=== PATIENT | female | born 1980 | race Caucasian/White ===

== ENCOUNTER → 2017-01-21 | Outpatient (CLI) | payer BC | END | disposition home or self-care (01) | LOC: LABWHC1 12:52 | PROVIDERS: ATTEND Obstetrics & Gynecology | DX: Z34.80 Encounter for supervision of other normal pregnancy, unspecified trimester (principal); Z3A.00 Weeks of gestation of pregnancy not specified | CPT/HCPCS: 36415; 84702 ==

== ENCOUNTER → 2017-01-23 | Outpatient (CLI) | payer BC | END | disposition home or self-care (01) | LOC: LABWHC1 12:27 | PROVIDERS: ATTEND Obstetrics & Gynecology | DX: Z34.80 Encounter for supervision of other normal pregnancy, unspecified trimester (principal); Z3A.00 Weeks of gestation of pregnancy not specified | CPT/HCPCS: 36415; 84702 ==

== ENCOUNTER → 2017-02-24 | Outpatient (CLI) | payer BC ==
[2017-02-24 11:31] LABS: CH 31.1; CHCM 33.3; HCT 42.1 % (34.0-46.0); HDW 2.43; HGB 13.8 gm/dL (11.4-16.0); MCH 30.8 pg (25.0-35.0); MCHC 32.8 g/dL (31.0-37.0); Mean Platelet Volume 7.5; RBC 4.47 m/uL (3.80-5.40); RDW 13.7 % (11.5-15.5); WBC 8.5 k/uL (3.8-10.6)
[2017-02-24 11:37] LABS: Glucose 85 mg/dL (74-99); Non-African American GFR(MDRD) >60 (>60 ml/min/1.73 sqM)
[2017-02-24 12:07] LABS: Hepatitis B Surface Ag Index 0.05
== END | disposition home or self-care (01) ==
LOC: LABWHC1 11:03
PROVIDERS: ATTEND Obstetrics & Gynecology
DX: Z34.81 Encounter for supervision of other normal pregnancy, first trimester (principal); Z3A.00 Weeks of gestation of pregnancy not specified
CPT/HCPCS: 36415; 82565; 82947; 85027; 86762; 86780; 86850; 86900; 86901; 87340

== ENCOUNTER → 2017-03-27 | Outpatient (CLI) | payer BC ==
--- NOTE | 2017-03-27 16:38 | US ---
EXAMINATION TYPE: US venous doppler duplex LE RT DATE OF EXAM: 03/27/2017 1:47 PM COMPARISON: NONE CLINICAL HISTORY: M79.659 Thigh pain. medial left knee and thigh pain x 6 days; 14 weeks SIDE PERFORMED: TECHNIQUE: The lower extremity deep venous system is examined utilizing real time linear array sonog flo with graded compression, Doppler sonography and color-flow sonography. VESSELS IMAGED: Common Femoral Vein Deep Femoral Vein Greater Saphenous Vein * Femoral Vein Popliteal Vein Small Saphenous Vein * Proximal Calf Veins (* superficial vessels) Right Leg: Negative for DVT Patient is time of this examination. evaluation was not performed at this time. IMPRESSION: 1. Normal right lower extremity deep venous ultrasound.
== END | disposition home or self-care (01) ==
LOC: RADUSWWP 13:07
PROVIDERS: ATTEND Obstetrics & Gynecology
DX: M79.659 Pain in unspecified thigh (principal)

== ENCOUNTER → 2017-05-20 | Outpatient (CLI) | payer BC, OTHER | END | disposition home or self-care (01) | LOC: LABWHC1 11:13 | PROVIDERS: ATTEND Obstetrics & Gynecology | DX: E55.9 Vitamin D deficiency, unspecified (principal) | CPT/HCPCS: 36415; 82306 ==

== ENCOUNTER → 2017-07-04 | Outpatient (CLI) | payer OTHER ==
[2017-07-04 10:44] LABS: CHCM 33.7; HCT 36.6 % (34.0-46.0); HDW 2.77; HGB 12.3 gm/dL (11.4-16.0); MCH 32.2 pg (25.0-35.0); MCHC 33.7 g/dL (31.0-37.0); MCV 95.6 fL (80.0-100.0); Mean Platelet Volume 8.2; RBC 3.83 m/uL (3.80-5.40); WBC 13.3 k/uL (3.8-10.6)
== END | disposition home or self-care (01) ==
LOC: LABWHC1 09:22
PROVIDERS: ATTEND Obstetrics & Gynecology
DX: Z34.82 Encounter for supervision of other normal pregnancy, second trimester (principal)
CPT/HCPCS: 36415; 82950; 85027

== ENCOUNTER 2017-08-24 20:10 | Outpatient (CLI) | payer OTHER ==
[2017-08-24 23:28] VITALS: BP 124/77; PULSE 96; RESP 18; TEMP 98.4
--- NOTE | 2017-08-25 08:17 | P.MSEPDOC ---
Presenting Problems - Arrival Data Date of Arrival on Unit: 08/24/17 Time of Arrival on Unit: 20:10 Mode of Transport: Ambulatory - Complaint OB-Reason for Admission/Chief Complaint: Pain Comment: pain and pressure pelvic area and back. states has cystocele, rectocele , and uterine prolapse needing pessary this preg. pessary removed last week. Medical History - Information : 4 Para: 2 Term: 2 : 0 Abortions: Spontaneous or Elective: 1 Number of Living Children: 2 - Gestational Age Gestational Age by VANGIE (wks/days): 35 Weeks and 1 Days - History Comment: 2 vag deliveies 37 weeks and 39 weeks last only 2 hour labor with 1 push deivery Review of Systems - Review of Systems Constitutional: No problems Breast: No problems ENT: No problems Cardiovascular: No problems Respiratory: No problems Gastrointestinal: No problems Musculoskeletal: No problems Neurological: No problems Skin: No problems Vital Signs - Temperature Temperature: 98.4 F Temperature Source: Oral - Pulse Right Pulse Rate: 96 Pulse Assessment Method: Automatic Cuff - Respirations Respiratory Rate: 18 Oxygen Delivery Method: Room Air - Blood Pressure Right Arm Blood Pressure: 124/77 Blood Pressure Mean: 92 Blood Pressure Source: Automatic Cuff Medical Screen Scoring (Pre) - Cervical Exam Dilation: 0 cm = 0 - Uterine Contractions Frequency: > 5 minutes apart = 1 Duration: N/A Intensity: N/A - Maternal Vital Signs Maternal Temperature: N/A Signs of Preeclampsia: N/A Maternal Respirations: N/A - Maternal Trauma Maternal Trauma: N/A - Assessment Baseline FHR: 150 Heart Rate - NICHD Category: Category I (Normal) = 0 NST: Reactive - Total Score Total Score (Pre): 1 - Level of Risk Level of Risk: Low (0-5) Physician Notification (Pre) - Physician Notified Physician Notified Date: 08/24/17 Physician Notified Time: 21:00 Physician/Practitioner Notifed:: Dr Nicholas New Order Received: Yes - Notification Comment Comment: discharge home if pt comfortable with that or pt may stay another hour for recheck if wishes Disposition - Disposition OB Disposition: Discharge to home Discharge Date: 08/24/17 Discharge Time: 21:30 I agree with the RN Medical Screening Exam: Yes Risk & Benefit of care provided described in d/c instruction: Yes Diagnosis: FALSE LABOR BEFORE 37 COMPLETED WEEKS OF GEST, THIRD TRI
== END 2017-08-24 22:30 | disposition home or self-care (01) ==
LOC: FBPOP 20:10
PROVIDERS: ATTEND Obstetrics & Gynecology
DX: O47.03 False labor before 37 completed weeks of gestation, third trimester (principal); Z3A.35 35 weeks gestation of pregnancy
CPT/HCPCS: 59025; 99213

== ENCOUNTER 2017-09-21 06:00 | Inpatient (IN) | payer OTHER ==
--- NOTE | 2017-09-20 21:20 | P.HPOB ---
History of Present Illness H&P Date: 09/20/17 Chief Complaint: Induction of labor This is a 37-year-old female 4 para 2, with an estimated date of confinement of 09/27/2017, estimated gestational age of 39 and one sevenths weeks, who presents to labor and delivery for induction of labor. She admits to good movement. She has been complaining of irregular contractions and pelvic pressure. labs: GC/chlamydia-negative Syphilis antibody-nonreactive Random glucose-65 Hepatitis B surface antigen-negative Hemoglobin-13.8 Rubella-immune Blood type-O+ Antibody screen-negative Maternity 21--1 hour Glucola-107 Group B streptococcus-negative, history of positive in previous Obstetrical history: . History of 2 vaginal deliveries and 1 miscarriage. Gynecologic history: No history of sexual transmitted diseases. Social history: She is . She works as a assistant analyst. Review of Systems Constitutional: Reports fatigue Eyes: denies blurred vision Ears, nose, mouth and throat: Reports headache, Denies sore throat Cardiovascular: Denies chest pain, Denies shortness of breath Genitourinary: Reports pelvic pain, Reports Musculoskeletal: Reports neck pain Musculoskeletal: bilateral: ankle swelling, hand swelling Neurological: Reports headaches, Reports migraines Psychiatric: Reports depression, Reports difficulty concentrating, Reports mood swings Past Medical History Past Medical History: Asthma, GERD/Reflux, Thyroid Disorder Additional Past Medical History / Comment(s): Degenerative disc disease; migraine headaches; History of eating disorder History of Any Multi-Drug Resistant Organisms: None Reported Past Surgical History: Adenoidectomy, Tonsillectomy Additional Past Surgical History / Comment(s): [id number] Past Anesthesia/Blood Transfusion Reactions: No Reported Reaction Past Psychological History: Depression Additional Psychological History / Comment(s): History of psychosis Smoking Status: Never smoker Past Alcohol Use History: None Reported Past Drug Use History: None Reported - Past Family History Mother Family Medical History: Hypertension Father Family Medical History: CVA/TIA, Myocardial Infarction ([place]) Medications and Allergies Home Medications Medication Instructions Recorded Confirmed Type Pnv,Calcium 72/Iron/Folic Acid 1 tab PO DAILY 08/17/15 09/03/17 History [ Plus Tablet] Folic Acid 0.4 mg PO DAILY 06/11/16 09/03/17 History Acetaminophen Tab [Tylenol Tab] 325 mg PO Q6H 09/29/16 09/03/17 History Biotin 5 mg PO DAILY 09/03/17 09/03/17 History Cholecalciferol (Vitamin D3) 2,000 tab PO DAILY 09/03/17 09/03/17 History [Vitamin D3] Allergies Allergy/AdvReac Type Severity Reaction Status Date / Time banana Allergy Nausea & Verified 09/03/17 20:57 Vomiting & Diarrhea Iodinated Contrast- Oral and Allergy Swelling Verified 09/03/17 20:57 IV Dye milk AdvReac Intermediate abdominal Verified 09/03/17 20:57 cramps Exam Osteopathic Statement: *. No significant issues noted on an osteopathic structural exam other than those noted in the History and Physical/Consult. HEENT: Within normal limits Heart: Regular rate and rhythm Lungs: Clear to auscultation bilaterally Abdomen: Cervix: 1.5 cm/60%/-3 heart tones: 140s by Doppler Extremities: Negative Homans Assessment and Plan (1) 39 weeks gestation of Status: Acute Code(s): Z3A.39 - 39 WEEKS GESTATION OF SNOMED Code( s): 31430772 (2) Group B Streptococcus carrier state affecting Status: Acute Code(s): O99.820 - STREPTOCOCCUS B CARRIER STATE COMPLICATING SNOMED Code(s): 843906444 Plan: Proceed with oxytocin induction of labor. Antibiotic prophylaxis secondary to history of group B streptococcus. Epidural anesthesia if desired. Expectant management.
[2017-09-21] MEDS ORDERED: OXYTOCIN 20 UNITS/1000 ML NS 1,000 ML IV SCH (06:30)
[2017-09-21] MEDS ORDERED: OXYTOCIN 10 UNIT/ML 1 ML VIAL IM PRN (06:30)
[2017-09-21] MEDS ORDERED: CARBOPROST TROMETHAMINE 250 MCG/ML 1 ML AMP IM PRN (06:30)
[2017-09-21] MEDS ORDERED: METHYLERGONOVINE 0.2 MG/ML 1 ML AMP IM PRN (06:30)
[2017-09-21] MEDS ORDERED: LIDOCAINE 1% (PF) 10 MG/ML (30 ML SDV) SQ PRN (06:30)
[2017-09-21] MEDS ORDERED: TERBUTALINE 1 MG/ML VIAL SQ PRN (06:30)
[2017-09-21] MEDS ORDERED: LIDOCAINE 1% 20 ML VIAL (10MG/ML) FOR IV START INTRADERMA PRN (06:30)
[2017-09-21] MEDS ORDERED: AMPICILLIN 2,000 MG in SODIUM CHLORIDE 0.9% 100 ML IVPB STA (06:33)
[2017-09-21 06:37] VITALS: BMI 36.0
[2017-09-21] MEDS: LACTATED RINGERS 1,000 ML IV SCH ×2 (06:48→09:35)
[2017-09-21] MEDS ORDERED: BUPIVACAINE (PF) 0.25% 30 ML VIAL ONE (09:21)
[2017-09-21] MEDS ORDERED: SODIUM CHLORIDE 0.9% 100 ML BAG ONE (09:21)
[2017-09-21] MEDS ORDERED: fentaNYL (PF) 50 MCG/ML 5 ML AMP ONE (09:21)
[2017-09-21 09:27] LABS: Basophils % (A) 0 %; CH 29.8; CHCM 31.9; Eosinophils # (A) 0.2 k/uL (0-0.7); Eosinophils % (A) 2 %; HCT 37.5 % (34.0-46.0); HDW 2.92; HGB 11.8 gm/dL (11.4-16.0); Hypochromasia Slight; Large Platelets Flag Marked; Luc % (Auto) 2; Lymphocytes # (A) 3.2 k/uL (1.0-4.8); Lymphocytes % (A) 31 %; MCH 29.5 pg (25.0-35.0); MCHC 31.4 g/dL (31.0-37.0); MCV 93.8 fL (80.0-100.0); Mean Platelet Volume 11.5; Monocytes # (A) 0.8 k/uL (0-1.0); Monocytes % (A) 8 %; Neutrophils # (A) 5.6 k/uL (1.3-7.7); Neutrophils % (A) 56 %; RDW 13.7 % (11.5-15.5); WBC (Perox) 10.54
[2017-09-21 09:36] LABS: Large Platelets Present; Manual Review Performed
[2017-09-21] MEDS ORDERED: BUPIVACAINE (PF) 0.25% 25 ML, fentaNYL (PF) 200 MCG in SODIUM CHLORIDE 0.9% 71 ML EPIDURAL ONE (09:37)
[2017-09-21] MEDS ORDERED: AMPICILLIN 1,000 MG in SODIUM CHLORIDE 0.9% 50 ML IVPB SCH (11:00)
--- NOTE | 2017-09-21 13:51 | P.PROBDLV ---
Vaginal Delivery Note - . Vaginal Delivery Note: The patient progressed to complete dilation after oxytocin induction of labor and artificial rupture membranes with clear fluid noted. She did receive epidural anesthesia. Once reaching complete dilation, she began pushing. Infant's head came to a crown. Perineum was anesthetized with 1% lidocaine and a midline episiotomy was cut. With one further push, the 's head delivered across the perineum in a right occiput anterior lie. Nose and mouth were bulb suctioned. Nuchal cord times one was noted. With one further push the anterior shoulder delivered and then she was able to push the the remainder of the way out. Nuchal cord times one was reduced around the body with delivery. Nose and mouth were again suctioned once the infant was placed on mother's abdomen. Cord was clamped and cut and was taken to warmer for evaluation. A viable female was noted with scores of 7 at 1 minute and 10 at 5 minutes and infant weight of 8 lbs. 8 oz. Placenta delivered shortly thereafter, intact, with a three-vessel cord. Uterus did contract well after oxytocin was given and uterine massage was carried out. Inspection of the perineum revealed a midline episiotomy with no further extension. This area was anesthetized with 1% lidocaine and then sutured with 3 -0 and 2-0 Vicryl suture in the usual multilayer fashion. Estimated blood loss is approximately 200 mL's. Both mother and are in stable condition.
[2017-09-21] MEDS ORDERED: SIMETHICONE 80 MG CHEWABLE PO PRN (13:53)
[2017-09-21] MEDS ORDERED: LANOLIN CREAM 5 GM TUBE TOPICAL PRN (13:53)
[2017-09-21] MEDS ORDERED: HYDROCORTISONE 2.5% RECTAL CREAM 30 GM TUBE RECTAL PRN (13:53)
[2017-09-21] MEDS ORDERED: diphenhydrAMINE 50 MG CAP PO PRN (13:53)
[2017-09-21] MEDS ORDERED: diphenhydrAMINE 25 MG CAP PO PRN (13:53)
[2017-09-21] MEDS ORDERED: WITCH HAZEL 1 EACH MED..PAD TOPICAL PRN (13:53)
[2017-09-21] MEDS ORDERED: BENZOCAINE/MENTHOL SPRAY 1 GM/SPRAY AEROSOL TOPICAL PRN (13:53)
[2017-09-21] MEDS ORDERED: diphenhydrAMINE 50 MG/ML 1 ML VIAL IVP PRN ×2 (13:53)
[2017-09-21] MEDS ORDERED: ZOLPIDEM 5 MG TAB PO PRN (13:53)
[2017-09-21] MEDS: IBUPROFEN 600 MG TAB PO PRN (15:34)
[2017-09-21] MEDS: SERTRALINE 50 MG TAB PO SCH (16:30)
[2017-09-21] MEDS: ACETAMINOPHEN TAB 325 MG TAB PO PRN (18:41)
[2017-09-21] MEDS ORDERED: FAMOTIDINE 20 MG TAB PO SCH (21:00)
[2017-09-21] MEDS: SENNOSIDES-DOCUSATE SODIUM 1 EACH TAB PO SCH (21:35)
[2017-09-22] MEDS: IBUPROFEN 600 MG TAB PO PRN ×2 (01:03→08:57)
[2017-09-22] MEDS: ACETAMINOPHEN TAB 325 MG TAB PO PRN (02:40)
[2017-09-22 08:06] LABS: Basophils % (A) 0 %; CH 29.9; CHCM 32.6; Eosinophils # (A) 0.1 k/uL (0-0.7); Eosinophils % (A) 1 %; HCT 34.3 % (34.0-46.0); HDW 2.98; HGB 10.9 gm/dL (11.4-16.0); Hypochromasia Slight; Large Platelets Flag Marked; Luc # (Auto) 0.22; Luc % (Auto) 2; Lymphocytes # (A) 2.9 k/uL (1.0-4.8); Lymphocytes % (A) 23 %; MCH 29.2 pg (25.0-35.0); MCHC 31.6 g/dL (31.0-37.0); MCV 92.4 fL (80.0-100.0); Mean Platelet Volume 11.2; Monocytes # (A) 0.8 k/uL (0-1.0); Monocytes % (A) 7 %; Neutrophils # (A) 8.3 k/uL (1.3-7.7); Neutrophils % (A) 67 %; RBC 3.72 m/uL (3.80-5.40); RDW 13.9 % (11.5-15.5); WBC 12.3 k/uL (3.8-10.6); WBC (Perox) 13.04
[2017-09-22 08:10] LABS: Large Platelets Present; Manual Review Performed
--- NOTE | 2017-09-22 08:48 | P.DS ---
Providers Date of admission: 09/21/17 06:21 Expected date of discharge: 09/22/17 Attending physician: Yolanda Gómez Primary care physician: Augustine Yung - Discharge Diagnosis(es) (1) 39 weeks gestation of Current Visit: Yes Status: Acute (2) Group B Streptococcus carrier state affecting Current Visit: Yes Status: Acute Hospital Course: This is a 37-year-old female 4 para 2 at 39 and one sevenths weeks who presented for induction of labor. She underwent oxytocin induction of labor and delivered vaginally a viable female infant on 09/21/2017 with scores of 7 at 1 minute and 10 at 5 minutes and weight of 8 lbs. 8 oz. Her course has been uncomplicated. Lochia is decreasing. She was started on Zoloft 50 mg daily due to her history of psychosis. So far she feels fine as far as her emotions. She is sore but she is alternating between ibuprofen and Tylenol. She is unsure if she wants to go home today or tomorrow but would like a discharge order for today just in case. Vital signs are stable. Abdomen is soft with fundus firm and nontender. Extremities show negative Homans. Impression is status post vaginal delivery day #1. Plan is to discharge home possibly today. Routine instructions are given. She does have a follow-up appointment with Dr. Sidhu already scheduled. She is advised to call the office if she has any further questions or concerns prior to her 6 week visit. Procedures: Oxytocin induction of labor Spontaneous vaginal delivery of a viable female infant on 09/21/2017 Patient Condition at Discharge: Stable Plan - Discharge Summary New Discharge Prescriptions: New Acetaminophen Tab [Tylenol] 650 mg PO Q4HR PRN tab PRN Reason: Mild Pain Or Fever >= 100.5 Ibuprofen [Motrin] 600 mg PO Q6HR PRN #60 tab PRN Reason: Mild Pain Or Fever >= 100.5 Sertraline [Zoloft] 50 mg PO DAILY tab Continue Pnv,Calcium 72/Iron/Folic Acid [ Plus Tablet] 1 tab PO DAILY Folic Acid 0.4 mg PO DAILY Cholecalciferol (Vitamin D3) [Vitamin D3] 2,000 tab PO DAILY Ranitidine HCl [Zantac] 75 mg PO BID No Action Acetaminophen Tab [Tylenol Tab] 325 mg PO Q6H PRN PRN Reason: Heartburn Biotin 5 mg PO DAILY Discharge Medication List Pnv,Calcium 72/Iron/Folic Acid [ Plus Tablet] 1 tab PO DAILY 08/17/15 [ History] Folic Acid 0.4 mg PO DAILY 06/11/16 [History] Acetaminophen Tab [Tylenol Tab] 325 mg PO Q6H PRN 09/29/16 [History] Biotin 5 mg PO DAILY 09/03/17 [History] Cholecalciferol (Vitamin D3) [Vitamin D3] 2,000 tab PO DAILY 09/03/17 [History] Ranitidine HCl [Zantac] 75 mg PO BID 09/21/17 [History] Acetaminophen Tab [Tylenol] 650 mg PO Q4HR PRN tab 09/22/17 [Rx] Ibuprofen [Motrin] 600 mg PO Q6HR PRN #60 tab 09/22/17 [Rx] Sertraline [Zoloft] 50 mg PO DAILY tab 09/22/17 [Rx] Follow up Appointment(s)/Referral(s): Yolanda Gómez DO [Doctor of Osteopathic Medicine] - 6 Weeks Activity/Diet/Wound Care/Special Instructions: Instructions 1. Do not begin any exercise program for 3 weeks. 2. Do not resume sexual relations for 3 weeks or longer if uncomfortable. 3. You may take tub baths or showers at any time. 4. You may use tampons if desired after 3 weeks. 5. Keep the area of episiotomy (stitches) clean and dry. 6. If you are not nursing, wear a good fitting, supportive bra during the day and limit fluid intake for at least 1 week to prevent breast engorgement. 7. Call the office, [phone], within the next week to make appointment for your 6 week checkup if it has not already been made. 8. Report any of the following occurrences to the doctor promptly: a. Heavy, excessive bleeding b. Chills, fever c. Burning or frequency of urination d. Pain or redness and breasts if nursing e. Increasing pain or swelling in episiotomy (stitches). In addition to the above instructions, the following additional should be followed: 1. No heavy lifting or straining (exercising) until after 6 week checkup. 2. Keep abdominal incision clean and dry: You may wear a dressing if more comfortable. 3. Make office appointment for 10 days after going home or as instructed by her doctor. Discharge Disposition: HOME SELF-CARE
[2017-09-22] MEDS: SENNOSIDES-DOCUSATE SODIUM 1 EACH TAB PO SCH (08:57)
[2017-09-22 09:28] VITALS: BP 104/63; PULSE 77; RESP 18; TEMP 98.8
[2017-09-22] MEDS: SERTRALINE 50 MG TAB PO SCH (10:38)
== END 2017-09-22 14:46 | disposition home or self-care (01) | DRG 775 ==
LOC: 4FBP 06:21
PROVIDERS: ADMIT Obstetrics & Gynecology; ATTEND Obstetrics & Gynecology
PROC: 10E0XZZ Delivery of Products of Conception, External Approach (ICD-10-PCS; principal; 2017-09-21)
PROC: 0W8NXZZ Division of Female Perineum, External Approach (ICD-10-PCS; 2017-09-21)
PROC: 3E033VJ Introduction of Other Hormone into Peripheral Vein, Percutaneous Approach (ICD-10-PCS; 2017-09-21)
PROC: 10907ZC Drainage of Amniotic Fluid, Therapeutic from Products of Conception, Via Natural or Artificial Opening (ICD-10-PCS; 2017-09-21)
DX: O69.81X0 Labor and delivery complicated by cord around neck, without compression, not applicable or unspecified (principal); O99.354 Diseases of the nervous system complicating childbirth; Z37.0 Single live birth; O99.344 Other mental disorders complicating childbirth; O99.89 Other specified diseases and conditions complicating pregnancy, childbirth and the puerperium; F32.9 Major depressive disorder, single episode, unspecified; O99.52 Diseases of the respiratory system complicating childbirth; J45.909 Unspecified asthma, uncomplicated; O99.62 Diseases of the digestive system complicating childbirth; K21.9 Gastro-esophageal reflux disease without esophagitis; O99.824 Streptococcus B carrier state complicating childbirth; O99.284 Endocrine, nutritional and metabolic diseases complicating childbirth; E07.9 Disorder of thyroid, unspecified; G43.909 Migraine, unspecified, not intractable, without status migrainosus; Z3A.39 39 weeks gestation of pregnancy; Z86.59 Personal history of other mental and behavioral disorders; Z82.49 Family history of ischemic heart disease and other diseases of the circulatory system; Z91.041 Radiographic dye allergy status; Z91.011 Allergy to milk products; Z91.018 Allergy to other foods
CPT/HCPCS: 85025; 88307

== ENCOUNTER 2017-10-06 20:12 | Emergency (ER) | payer OTHER ==
[2017-10-06] MEDS ORDERED: SODIUM CHLORIDE 0.9% 1,000 ML IV STA (20:51)
--- NOTE | 2017-10-06 21:03 | ED ---
General Adult HPI - General Chief complaint: Vaginal Bleeding Stated complaint: Female Time Seen by Provider: 10/06/17 20:35 Source: patient, RN notes reviewed Mode of arrival: ambulatory Limitations: no limitations - History of Present Illness Initial comments: 37 yo female presents to the ER with cc of vaginal bleeding following a vaginally delivery 2 weeks ago. Patient is a . Patient states she does suffer from rectal and uterine prolapse. Patient states that she has had no discomfort. Patient states that her bleeding stopped on Thursday or last week but then she started to have a big gush of bright red blood today she states whenever she goes to the bathroom she notices this big gush of blood. She states a little bit of right-sided pain but nothing severe. She states there is no complications with the vaginally delivery. Patient OBGYN is Dr. Gómez. She was concerned due to the bleeding so she thought that she should be seen. Patient denies any lightheadedness or dizziness with this. SHe denies any changes in bowel or bladder habits. Patient denies any recent fever, chills, shortness of breath, chest pain, back pain, abdominal pain, nausea vomiting, numbness or tingling, dysuria or hematuria, constipation or diarrhea, headaches or visual changes, or any other current symptoms. - Related Data Home Medications Medication Instructions Recorded Confirmed Pnv,Calcium 72/Iron/Folic Acid 1 tab PO DAILY 08/17/15 10/06/17 [ Plus Tablet] Folic Acid 0.4 mg PO DAILY 06/11/16 10/06/17 Biotin 5 mg PO DAILY 09/03/17 10/06/17 Cholecalciferol (Vitamin D3) 2,000 tab PO DAILY 09/03/17 10/06/17 [Vitamin D3] Acetaminophen [Tylenol] 650 mg PO Q6HR PRN 10/06/17 10/06/17 Ranitidine HCl [Zantac] 75 mg PO DAILY PRN 10/06/17 10/06/17 Previous Rx's Medication Instructions Recorded Sertraline [Zoloft] 50 mg PO DAILY tab 09/22/17 Allergies Allergy/AdvReac Type Severity Reaction Status Date / Time banana Allergy Nausea & Verified 10/06/17 20:33 Vomiting & Diarrhea Iodinated Contrast- Oral and Allergy Swelling Verified 10/06/17 20:33 IV Dye milk AdvReac Mild Abdominal Verified 10/06/17 20:33 Pain Review of Systems ROS Statement: Those systems with pertinent positive or pertinent negative responses have been documented in the HPI. ROS Other: All systems not noted in ROS Statement are negative. Past Medical History Past Medical History: Asthma, GERD/Reflux, Thyroid Disorder Additional Past Medical History / Comment(s): Degenerative disc disease; migraine headaches; History of eating disorder. cystocele, rectocele, uterine prolapse History of Any Multi-Drug Resistant Organisms: None Reported Past Surgical History: Adenoidectomy, Tonsillectomy Additional Past Surgical History / Comment(s): [id number] Past Anesthesia/Blood Transfusion Reactions: No Reported Reaction Past Psychological History: Anxiety, Depression Smoking Status: Never smoker Past Alcohol Use History: None Reported Past Drug Use History: None Reported - Past Family History Mother Family Medical History: Hypertension Father Family Medical History: CVA/TIA, Myocardial Infarction ([place]) General Exam Limitations: no limitations General appearance: alert, in no apparent distress ENT exam: Present: normal exam, mucous membranes moist Neck exam: Present: normal inspection. Absent: tenderness, meningismus, lymphadenopathy Respiratory exam: Present: normal lung sounds bilaterally. Absent: respiratory distress, wheezes, rales, rhonchi, stridor Cardiovascular Exam: Present: regular rate, normal rhythm, normal heart sounds. Absent: systolic murmur, diastolic murmur, rubs, gallop, clicks GI/Abdominal exam: Present: soft, normal bowel sounds. Absent: distended, tenderness, guarding, rebound, rigid Neurological exam: Present: alert, oriented X3 Psychiatric exam: Present: normal affect, normal mood Skin exam: Present: warm, dry, intact, normal color. Absent: rash Course Vital Signs 10/06/17 20:21 Temperature 98.8 F Pulse Rate 93 Respiratory 18 Rate Blood Pressure 121/66 O2 Sat by Pulse 98 Oximetry Medical Decision Making - Medical Decision Making 37 yo female presents for vaginal bleeding following delivery 2 weeks ago. At this time patient's hCG level is normal. Patient's ultrasound is not showing retained products of conception. At this time the patient is informed that she is to follow-up with [facility]. We discussed return parameters and questions. Patient stated that she understood and she is here this plan. All questions have been answered. She'll be discharged. - Lab Data Result diagrams: 10/06/17 21:00 10/06/17 21:00 Lab Results 10/06/17 10/06/17 10/06/17 Range/Units 21:00 21:00 21:00 WBC 6.7 (3.8-10.6) k/uL RBC 4.67 (3.80-5.40) m/uL Hgb 13.5 (11.4-16.0) gm/dL Hct 42.1 (34.0-46.0) % MCV 90.1 (80.0-100.0) fL MCH 28.8 (25.0-35.0) pg MCHC 32.0 (31.0-37.0) g/dL RDW 13.8 (11.5-15.5) % Plt Count 374 D (150-450) k/uL Neutrophils % 44 % Lymphocytes % 42 % Monocytes % 8 % Eosinophils % 3 % Basophils % 1 % Neutrophils # 2.9 (1.3-7.7) k/uL Lymphocytes # 2.8 (1.0-4.8) k/uL Monocytes # 0.5 (0-1.0) k/uL Eosinophils # 0.2 (0-0.7) k/uL Basophils # 0.0 (0-0.2) k/uL Sodium 139 (137-145) mmol/L Potassium 4.2 (3.5-5.1) mmol/L Chloride 105 (98-107) mmol/L Carbon Dioxide 27 (22-30) mmol/L Anion Gap 7 mmol/L BUN 9 (7-17) mg/dL Creatinine 0.84 (0.52-1.04) mg/dL Est GFR (MDRD) Af Amer >60 (>60 ml/min/1.73 sqM) Est GFR (MDRD) Non-Af >60 (>60 ml/min/1.73 sqM) Glucose 86 (74-99) mg/dL Calcium 9.4 (8.4-10.2) mg/dL Total Bilirubin 0.2 (0.2-1.3) mg/dL AST 30 (14-36) U/L ALT 47 (9-52) U/L Alkaline Phosphatase 92 (38-126) U/L Total Protein 6.6 (6.3-8.2) g/dL Albumin 3.9 (3.5-5.0) g/dL HCG, Quant 2.4 mIU/mL Urine Color Urine Appearance (Clear) Urine pH (5.0-8.0) Ur Specific Rowe (1.001-1.035) Urine Protein (Negative) Urine Glucose (UA) (Negative) Urine Ketones (Negative) Urine Blood (Negative) Urine Nitrite (Negative) Urine Bilirubin (Negative) Urine Urobilinogen (<2.0) mg/dL Ur Leukocyte Esterase (Negative) Urine RBC (0-5) /hpf Urine WBC (0-5) /hpf Ur Squamous Epith Cells (0-4) /hpf Urine Mucus (None) /hpf Blood Type O Positive Blood Type Recheck No Antibody Screen NEGATIVE Spec Expiration Date 10/09/2017 - 229910/06/17 Range/Units 21:30 WBC (3.8-10.6) k/uL RBC (3.80-5.40) m/uL Hgb (11.4-16.0) gm/dL Hct (34.0-46.0) % MCV (80.0-100.0) fL MCH (25.0-35.0) pg MCHC (31.0-37.0) g/dL RDW (11.5-15.5) % Plt Count (150-450) k/uL Neutrophils % % Lymphocytes % % Monocytes % % Eosinophils % % Basophils % % Neutrophils # (1.3-7.7) k/uL Lymphocytes # (1.0-4.8) k/uL Monocytes # (0-1.0) k/uL Eosinophils # (0-0.7) k/uL Basophils # (0-0.2) k/uL Sodium (137-145) mmol/L Potassium (3.5-5.1) mmol/L Chloride (98-107) mmol/L Carbon Dioxide (22-30) mmol/L Anion Gap mmol/L BUN (7-17) mg/dL Creatinine (0.52-1.04) mg/dL Est GFR (MDRD) Af Amer (>60 ml/min/1.73 sqM) Est GFR (MDRD) Non-Af (>60 ml/min/1.73 sqM) Glucose (74-99) mg/dL Calcium (8.4-10.2) mg/dL Total Bilirubin (0.2-1.3) mg/dL AST (14-36) U/L ALT (9-52) U/L Alkaline Phosphatase (38-126) U/L Total Protein (6.3-8.2) g/dL Albumin (3.5-5.0) g/dL HCG, Quant mIU/mL Urine Color Yellow Urine Appearance Clear (Clear) Urine pH 5.5 (5.0-8.0) Ur Specific Rowe 1.018 (1.001-1.035) Urine Protein Negative (Negative) Urine Glucose (UA) Negative (Negative) Urine Ketones Negative (Negative) Urine Blood Trace H (Negative) Urine Nitrite Negative (Negative) Urine Bilirubin Negative (Negative) Urine Urobilinogen <2.0 (<2.0) mg/dL Ur Leukocyte Esterase Small H (Negative) Urine RBC 1 (0-5) /hpf Urine WBC 7 H (0-5) /hpf Ur Squamous Epith Cells 1 (0-4) /hpf Urine Mucus Occasional H (None) /hpf Blood Type Blood Type Recheck Antibody Screen Spec Expiration Date - Radiology Data Radiology results: report reviewed, image reviewed Disposition Clinical Impression: bleeding Disposition: HOME SELF-CARE Condition: Stable Instructions: Bleeding (ED) Additional Instructions: Please use medication as discussed. Please follow up with family doctor if symptoms have not improved over the next two days. Please return to the emergency room if your symptoms increase or worsen or for any other concerns. Referrals: Augustine Yung MD [Primary Care Provider] - 1-2 days Time of Disposition: 22:25
[2017-10-06 21:16] LABS: Basophils % (A) 1 %; CH 29.4; CHCM 32.9; Eosinophils # (A) 0.2 k/uL (0-0.7); Eosinophils % (A) 3 %; HCT 42.1 % (34.0-46.0); HDW 2.73; HGB 13.5 gm/dL (11.4-16.0); Luc # (Auto) 0.23; Luc % (Auto) 4; Lymphocytes # (A) 2.8 k/uL (1.0-4.8); Lymphocytes % (A) 42 %; MCH 28.8 pg (25.0-35.0); MCV 90.1 fL (80.0-100.0); Mean Platelet Volume 7.1; Monocytes # (A) 0.5 k/uL (0-1.0); Monocytes % (A) 8 %; Neutrophils # (A) 2.9 k/uL (1.3-7.7); Neutrophils % (A) 44 %; RBC 4.67 m/uL (3.80-5.40); RDW 13.8 % (11.5-15.5); WBC 6.7 k/uL (3.8-10.6)
[2017-10-06 21:21] LABS: ALT 47 U/L (9-52); AST 30 U/L (14-36); Alkaline Phosphatase 92 U/L (38-126); Anion Gap 7 mmol/L; Blood Urea Nitrogen 9 mg/dL (7-17); Calcium 9.4 mg/dL (8.4-10.2); Carbon Dioxide 27 mmol/L (22-30); Chloride 105 mmol/L (98-107); Glucose 86 mg/dL (74-99); Non-African American GFR(MDRD) >60 (>60 ml/min/1.73 sqM); Potassium 4.2 mmol/L (3.5-5.1); Sodium 139 mmol/L (137-145); Total Bilirubin 0.2 mg/dL (0.2-1.3); Total Protein 6.6 g/dL (6.3-8.2)
[2017-10-06 21:50] LABS: Appearance,Urine Clear (Clear); Bilirubin,Urine Negative (Negative); Glucose,Urine (UA) Negative (Negative); Ketones,Urine Negative (Negative); Leukocyte Esterase,Urine Small (Negative); Mucus,Urine Occasional /hpf; Nitrite,Urine Negative (Negative); PH, Urine 5.5 (5.0-8.0); Particle Count 2640; Protein,Urine Negative (Negative); RBC,Urine 1 /hpf (0-5); Specific Gravity,Urine 1.018 (1.001-1.035); Squamous Epithelial Cell,Urine 1 /hpf (0-4); UA Billing (MACRO vs. MICRO) MICRO; Urobilinogen,Urine <2.0 mg/dL (<2.0); WBC,Urine 7 /hpf (0-5)
--- NOTE | 2017-10-06 22:19 | US ---
EXAMINATION TYPE: US transvaginal DATE OF EXAM: 10/06/2017 COMPARISON: NONE CLINICAL HISTORY: Pain. patient 2 weeks post bleeding patient has prolapsed uterus, bladder an d anus TECHNIQUE: Transvaginal (TV) EXAM MEASUREMENTS: Uterus: 8.4 x 5.5 x 8.5 cm Endometrial Stripe: 0.5 cm Right Ovary: 3.9 x 1.6 x 1.1 cm Patient only able to tolerate small amount of pressure for exam due to 2 weeks still pain ful in vaginal area 1. Uterus: retroverted heterogenous 2. Endometrium: ill defined boarders anechoic with internal echoes seen 3. Right Ovary: wnl Spectral, color and waveform doppler imaging shows good arterial and venous flow within the right o vary; there is no evidence for ovarian torsion. 5. Bilateral Adnexa: wnl 6. Posterior cul-de-sac: wnl Uterus heterogenous in appearance endometrium not well defined area measured had fluid with internal echoes seen within IMPRESSION: Uterus is large consistent with recent . There is a tiny amount of endometrial f luid. No evidence of any endometrial thickening. Fluid measures 4 mm. No adnexal mass. Left ovary is not seen.
[2017-10-06 22:38] VITALS: BP 115/74; PULSE 72; RESP 16; TEMP 97.9
== END 2017-10-06 22:42 | disposition home or self-care (01) ==
LOC: EC 20:12
DX: O72.2 Delayed and secondary postpartum hemorrhage (principal); Z79.899 Other long term (current) drug therapy; Z91.011 Allergy to milk products; Z91.018 Allergy to other foods; Z91.041 Radiographic dye allergy status
CPT/HCPCS: 36415; 76830; 80053; 81001; 84702; 85025; 86850; 86900; 86901; 87086; 93976; 96360; 99284

== ENCOUNTER → 2017-12-02 | Outpatient (CLI) | payer OTHER ==
--- NOTE | 2017-12-02 10:14 | MR ---
MRI bilateral hips without contrast HISTORY: Pain, M 25.551, M25.552 Multiplanar multisequence imaging of the hips. There are no plain films supplied for correlation. The hips show a normal appearance. Bone marrow signal is maintained within the hips. There is no evid ent labral tear within the confines of a noncontrast exam. Articular cartilage signal is maintained, joint spaces are normal. No evident trochanteric bursitis. There is abnormal signal involving the sacroiliac joints bilaterally, subchondral reactive marrow frantz ma is present with some associated sclerosis suspected. There is no evident ankylosis or erosion. Uterus and adnexa are unremarkable. No significant free fluid present. Urinary bladder shows normal s ignal. Some mild arthropathy change present at the pubic symphysis. No adenopathy. IMPRESSION: Correlate for sacroiliitis bilaterally
== END | disposition home or self-care (01) ==
LOC: RADMRIMAIN 08:46
PROVIDERS: ATTEND Orthopaedic Surgery
DX: M25.551 Pain in right hip (principal); M25.552 Pain in left hip

== ENCOUNTER → 2017-12-21 | Day surgery (SDC) | payer OTHER ==
[2017-12-14 16:07] VITALS: BMI 31.3
[~2017-12-21] MED LIST: BUPIVACAINE (PF) 0.5% 30 ML VIAL SQ ONE; DEXAMETHASONE SOD PHOSPHATE 10 MG/ML 1 ML VIAL IV ONE; LACTATED RINGERS 1,000 ML IV SCH; LIDOCAINE 1% 20 ML VIAL (10MG/ML) FOR IV START INTRADERMA PRN; MIDAZOLAM 2 MG/2 ML VIAL ONE; PROPOFOL 10 MG/ML 20 ML VIAL IV ONE; Pre Op ABX Message 1 EACH MISC MISCELLANE ONE; fentaNYL (PF) 50 MCG/ML 2 ML AMP ONE
[2017-12-21 12:56] VITALS: RESP 16; TEMP 97.8
[2017-12-21 14:12] VITALS: BP 110/71; PULSE 65
--- NOTE | 2017-12-21 17:39 | OP ---
OPERATIVE REPORT PREOPERATIVE DIAGNOSES: Right carpal tunnel and flexor tendon sheath ganglion cyst, right middle finger. POSTOPERATIVE DIAGNOSES: Right carpal tunnel and flexor tendon sheath ganglion cyst, right middle finger. PROCEDURE: 1. Right carpal tunnel release 2. Excision of flexor tendon sheath ganglion cyst, right middle finger. DESCRIPTION OF PROCEDURE: The patient was taken to the Operative Suite where a sedation was administered by the Department of Anesthesia. I then performed a local injection along the line of the incision with a combination of Marcaine and Xylocaine both without epinephrine. The hand was then prepped and draped in the usual manner. The arm was elevated, exsanguinated and the cuff was inflated to 250 mm of mercury. A longitudinal incision was made along the ring finger ray distal to the wrist crease. Dissection was taken through the skin and subcutaneous tissue, initially sharp through the skin and then blunt through the subcutaneous tissue to ensure protection of any potential terminal transverse branches of the palmar cutaneous nerve. The palmar fascia was then incised under direct vision longitudinally exposing the transverse carpal ligament. The transverse carpal ligament also was incised under direct vision. The dissection was then continued proximally beneath the skin under direct vision to release the distal forearm fascia. The median nerve was then reflected free of tenosynovium to ensure no adhesions. The tourniquet was then released. The wound was then irrigated and the skin was closed with a running 5-0 nylon suture. A soft bulky dressing was applied including a volar plaster splint holding the wrist in a neutral slightly extended position. The patient was then taken to the Recovery Room in satisfactory condition. The patient was taken to the Operative Suite were a digital block anesthetic was performed. The hand was prepped and draped in the usual manner. The finger was exsanguinated and Nael drain was used a tourniquet in the proximal aspect of the finger. A T-shaped incision was made over the DIP joint centered over the ganglion cyst. Skin flaps were gently dissected and care was taken to avoid harm and injury to the extensor tendon. A longitudinal arthrotomy was made along the DIP joint on the side of the ganglion cyst. The cyst was excised along with osteophytic spurs. The wound was irrigated and the skin was closed with 5-0 nylon suture. A soft, bulky dressing was applied, and the patient was taken to the Recovery Room in satisfactory condition. MMODL / IJN: [id number] / KARLIE
== END ==
LOC: OR 12:25
PROVIDERS: ATTEND Orthopaedic Surgery Hand Surgery
DX: G56.01 Carpal tunnel syndrome, right upper limb (principal); M67.441 Ganglion, right hand; M25.741 Osteophyte, right hand; F32.9 Major depressive disorder, single episode, unspecified; J45.909 Unspecified asthma, uncomplicated; Z79.3 Long term (current) use of hormonal contraceptives; Z79.899 Other long term (current) drug therapy; Z91.041 Radiographic dye allergy status
CPT/HCPCS: 81025; 64721; 26160; J2250; J1100; J3010; J2704; 88304

== ENCOUNTER → 2018-02-09 | Outpatient (CLI) | payer OTHER ==
--- NOTE | 2018-02-09 08:59 | MR ---
EXAMINATION TYPE: MR lumbar spine wo con DATE OF EXAM: 02/09/2018 COMPARISON: NONE HISTORY: Low back pain TECHNIQUE: T1 and T2 axial and sagittal images of the lumbar spine are submitted. FINDINGS: There is no abnormal signal seen within the visualized spinal cord or paraspinal soft tissu es. At L1-2 there is no disc herniation or canal stenosis. No foraminal encroachment. At L2-3 there is no disc herniation or canal stenosis. No foraminal encroachment. At L3-4 there is mild disc desiccation. Mild left lateral disc bulging but no foraminal encroachment or canal stenosis. At L4-5 there is hypertrophic change of the facets. No disc herniation or canal stenosis. No foramina l encroachment. At L5-S1 there is degenerative disc disease with a focal central disc bulge or small protrusion. No c anal stenosis or foraminal encroachment. IMPRESSION: 1. There is a focal small central disc bulge or small protrusion L5-S1 but no canal stenosis or mansi inal encroachment. 2. Left lateral disc bulging L3-L4 but no evidence of foraminal encroachment.
== END | disposition home or self-care (01) ==
LOC: RADMRIMAIN 08:16
PROVIDERS: ATTEND Physical Medicine & Rehabilitation
DX: S33.39 Dislocation of other parts of lumbar spine and pelvis (principal)
CPT/HCPCS: 72148

== ENCOUNTER → 2018-05-17 | Outpatient (CLI) | payer OTHER ==
[2018-05-17 17:23] LABS: Basophils % (A) 0 %; Eosinophils # (A) 0.1 k/uL (0-0.7); Eosinophils % (A) 1 %; HCT 40.5 % (34.0-46.0); HGB 13.7 gm/dL (11.4-16.0); Lymphocytes # (A) 2.7 k/uL (1.0-4.8); Lymphocytes % (A) 28 %; MCH 30.1 pg (25.0-35.0); MCHC 33.9 g/dL (31.0-37.0); Mean Platelet Volume 7.1; Monocytes # (A) 0.4 k/uL (0-1.0); Monocytes % (A) 5 %; Neutrophils # (A) 6.5 k/uL (1.3-7.7); Neutrophils % (A) 66 %; Platelet Count 309 k/uL (150-450); RBC 4.55 m/uL (3.80-5.40); RDW 13.6 % (11.5-15.5); WBC 9.9 k/uL (3.8-10.6)
[2018-05-17 17:32] LABS: Anion Gap 11 mmol/L; Blood Urea Nitrogen 6 mg/dL (7-17); Calcium 9.6 mg/dL (8.4-10.2); Carbon Dioxide 21 mmol/L (22-30); Chloride 109 mmol/L (98-107); Glucose 97 mg/dL (74-99); Potassium 4.2 mmol/L (3.5-5.1); Sodium 141 mmol/L (137-145)
== END | disposition home or self-care (01) ==
LOC: LABPAT 16:00
PROVIDERS: ATTEND Obstetrics & Gynecology
DX: Z01.812 Encounter for preprocedural laboratory examination (principal)
CPT/HCPCS: 36415; 80048; 85025; 86850; 86900; 86901

== ENCOUNTER 2018-05-24 05:56 | Inpatient (IN) | payer OTHER ==
[2018-05-17 18:34] VITALS: BMI 29.7
--- NOTE | 2018-05-17 20:57 | P.GSHP ---
History of Present Illness H&P Date: 05/17/18 Chief Complaint: Stress urinary incontinence The patient is a 38-year-old female with a history of intermittent urine leakage which has been much worse since she was in/2017. She has urine leakage which is associated with a sense of urgency and also urine leakage associated with coughing and straining, but only when she is standing. She has no fecal incontinence. The leakage has progressed to the point where she was wearing 2-4 pads daily. She usually voids every 2-3 hours during the day but has no nocturia. The patient has a cystocele and small rectocele and Dr. Gómez plans vaginal hysterectomy with repair of her pelvic organ prolapse. She has tried Kegel exercises with no improvement. I have discussed nonoperative versus operative treatment of her stress incontinence and the patient wishes to proceed with a synthetic trans-obturator mid urethral sling. - Constitutional Constitutional: Reports weight gain - EENT Ears, nose, mouth and throat: Reports headache - Cardiovascular Cardiovascular: Denies chest pain, Denies palpitations, Denies shortness of breath - Respiratory Respiratory: Denies cough, Denies wheezing - Gastrointestinal Gastrointestinal: Denies abdominal pain, Denies constipation - Genitourinary (Female) Genitourinary: Reports as per HPI - Musculoskeletal Musculoskeletal: Reports shooting arm pain, Reports shooting leg pain - Psychiatric Psychiatric: Reports depression Past Medical History Past Medical History: Asthma, GERD/Reflux, Musculoskeletal Disorder, Syncope Additional Past Medical History / Comment(s): DDD, OCC NT ASHANTI LEGS/ARMS. Migraine headaches. History of eating disorder. Cystocele, Rectocele, Uterine prolapse. GERD resolved at this time. Exercise induced asthma. Current separation of pelvis, OCC difficulty getting to standing position from sitting/ lying. History of Any Multi-Drug Resistant Organisms: None Reported Past Surgical History: Adenoidectomy, Tonsillectomy Additional Past Surgical History / Comment(s): Laparoscopy, EP Study, Endoscopy , D&C. 12/2017 RT [facility], GANGLION CYST EXC. Past Anesthesia/Blood Transfusion Reactions: Previous Problems w/ Anesthesia Additional Past Anesthesia/Blood Transfusion Reaction / Comment(s): Woke up during endoscopy. Smoking Status: Never smoker - Past Family History Mother Family Medical History: Hypertension Father Family Medical History: CVA/TIA, Myocardial Infarction ([place]) Medications and Allergies Home Medications Medication Instructions Recorded Confirmed Type Folic Acid 0.4 mg PO DAILY 06/11/16 05/17/18 History Biotin 5 mg PO BID 09/03/17 05/17/18 History Cholecalciferol (Vitamin D3) 3,000 tab PO DAILY 09/03/17 05/17/18 History [Vitamin D3] Acetaminophen [Tylenol] 650 mg PO Q6HR PRN 10/06/17 05/17/18 History Sertraline [Zoloft] 100 mg PO BID 12/14/17 05/17/18 History Albuterol Inhaler [Ventolin Hfa 1 - 2 puff INHALATION RT-Q6H PRN 05/17/18 History Inhaler] Blisovi Fe 1.5/30 (Bcp) 1 tab PO HS 05/17/18 History Omeprazole [PriLOSEC] 20 mg PO HS 05/17/18 05/17/18 History Pregabalin [Lyrica] 75 mg PO BID 05/17/18 05/17/18 History Topiramate [Topamax] 100 mg PO BID 05/17/18 05/17/18 History busPIRone HCL 5 mg PO BID 05/17/18 05/17/18 History Allergies Allergy/AdvReac Type Severity Reaction Status Date / Time banana Allergy Nausea & Verified 05/17/18 18:01 Vomiting & Diarrhea Iodinated Contrast- Oral and Allergy Swelling Verified 05/17/18 18:01 IV Dye milk AdvReac Mild Abdominal Verified 05/17/18 18:01 Pain Surgical - Exam - General well developed, well nourished, obese - ENT no hearing loss - Neck no masses, no lymphadectomy - Respiratory normal respiratory effort, clear to auscultation - Cardiovascular Rhythm: regular Abnormal Heart Sounds: no systolic murmur, no diastolic murmur - Abdomen Abdomen: soft, non tender, no organomegaly Hernia: none - Genitourinary normal external genitalia, other (The bladder neck is hypermobile. Minimal stress incontinence in the supine position with coughing. Gr 2 cystocele) Assessment and Plan (1) Mixed stress and urge urinary incontinence Narrative/Plan: The patient has components of both stress and urge incontinence. Her urge incontinence appears to be the most bothersome however a portion of this could be related to an open bladder neck related to her stress incontinence. I discussed further nonoperative treatment including Kegel exercises and anti- cholinergics versus operative treatment via a synthetic mid urethral sling. Because the patient will be undergoing vaginal hysterectomy and anterior repair patient she would like to proceed with surgical treatment of the stress incontinence. She is aware that her urge incontinence may persist. She is also aware of the operative risks which include anesthesia, bleeding, infection or erosion of the mesh which may require mesh removal, perineal or leg pain, and persistent or recurrent incontinence. Status: Acute Code(s): N39.46 - MIXED INCONTINENCE SNOMED Code(s): 640684493
--- NOTE | 2018-05-23 17:18 | P.HPOB ---
History of Present Illness H&P Date: 05/23/18 Chief Complaint: Uterine prolapse with cystocele and rectocele, urinary incontinence This is a 38-year-old female 4 para 3 who presents for total vaginal hysterectomy with anterior and posterior vaginal colporrhaphy along with trans- obturator sling to be performed by Dr. Eaton. She started having symptomatic pelvic organ prolapse during her last and it has continued since . In addition she continues to have urinary stress incontinence. She has consented to the above noted procedure. Obstetrical history: . History of 3 vaginal deliveries and 1 miscarriage. Gynecologic history: No history of sexual transmitted diseases. Social history: She is . Review of Systems Constitutional: Denies chills, Denies fever Eyes: denies blurred vision, denies pain Ears, nose, mouth and throat: Reports headache, Denies sore throat Cardiovascular: Denies chest pain, Denies shortness of breath Respiratory: Denies cough Gastrointestinal: Denies abdominal pain, Denies diarrhea, Denies nausea, Denies vomiting Genitourinary: Reports dyspareunia, Reports pelvic pain, Reports prolapse symptoms, Reports stress incontinence Musculoskeletal: Reports low back pain, Reports myalgias Neurological: Reports migraines Psychiatric: Reports anxiety, Reports depression Past Medical History Past Medical History: Asthma, GERD/Reflux, Musculoskeletal Disorder, Syncope Additional Past Medical History / Comment(s): DDD, OCC NT ASHANTI LEGS/ARMS. Migraine headaches. History of eating disorder. Cystocele, Rectocele, Uterine prolapse. GERD resolved at this time. Exercise induced asthma. Current separation of pelvis, OCC difficulty getting to standing position from sitting/ lying. History of Any Multi-Drug Resistant Organisms: None Reported Past Surgical History: Adenoidectomy, Tonsillectomy Additional Past Surgical History / Comment(s): Laparoscopy, EP Study, Endoscopy , D&C. 12/2017 [facility], GANGLION CYST EXC. Past Anesthesia/Blood Transfusion Reactions: Previous Problems w/ Anesthesia Additional Past Anesthesia/Blood Transfusion Reaction / Comment(s): Woke up during endoscopy. Past Psychological History: Anxiety Additional Psychological History / Comment(s): History of psychosis Smoking Status: Never smoker Past Alcohol Use History: Occasional Past Drug Use History: None Reported - Past Family History Mother Family Medical History: Hypertension Father Family Medical History: CVA/TIA, Myocardial Infarction ([place]) Medications and Allergies Home Medications Medication Instructions Recorded Confirmed Type Folic Acid 0.4 mg PO DAILY 06/11/16 05/17/18 History Biotin 5 mg PO BID 09/03/17 05/17/18 History Cholecalciferol (Vitamin D3) 3,000 tab PO DAILY 09/03/17 05/17/18 History [Vitamin D3] Acetaminophen [Tylenol] 650 mg PO Q6HR PRN 10/06/17 05/17/18 History Sertraline [Zoloft] 100 mg PO BID 12/14/17 05/17/18 History Albuterol Inhaler [Ventolin Hfa 1 - 2 puff INHALATION RT-Q6H PRN 05/17/18 History Inhaler] Blisovi Fe 1.5/30 (Bcp) 1 tab PO HS 05/17/18 History Omeprazole [PriLOSEC] 20 mg PO HS 05/17/18 05/17/18 History Pregabalin [Lyrica] 75 mg PO BID 05/17/18 05/17/18 History Topiramate [Topamax] 100 mg PO BID 05/17/18 05/17/18 History busPIRone HCL 5 mg PO BID 05/17/18 05/17/18 History Allergies Allergy/AdvReac Type Severity Reaction Status Date / Time banana Allergy Nausea & Verified 05/17/18 18:01 Vomiting & Diarrhea Iodinated Contrast- Oral and Allergy Swelling Verified 05/17/18 18:01 IV Dye milk AdvReac Mild Abdominal Verified 05/17/18 18:01 Pain Exam Osteopathic Statement: *. No significant issues noted on an osteopathic structural exam other than those noted in the History and Physical/Consult. HEENT: Within normal limits Heart: Regular rate and rhythm Lungs: Clear to auscultation bilaterally Abdomen: Soft, nontender Pelvic exam: First degree uterine prolapse is noted. Second-degree cystocele and rectocele are noted. Uterus is anteverted with no adnexal masses or tenderness noted. Of note she does have a slight symphysis pubis separation which is tender. Extremities: Negative Homans Assessment and Plan (1) Cystocele with uterine prolapse Status: Acute Code(s): N81.4 - UTEROVAGINAL PROLAPSE, UNSPECIFIED SNOMED Code(s): 884287931 (2) Rectocele Status: Acute Code(s): N81.6 - RECTOCELE SNOMED Code(s): 192394689 (3) Mixed stress and urge urinary incontinence Status: Acute Code(s): N39.46 - MIXED INCONTINENCE SNOMED Code(s): 474745979 Plan: Proceed with total vaginal hysterectomy with anterior and posterior colporrhaphy and Dr. Eaton will perform a trans-obturator sling for urinary stress incontinence. I have discussed the risks, benefits, and alternative therapies for the above- mentioned procedure and for both sedation/anesthesia as well as necessary blood products administration, if indicated, as they pertain to this patient. The patient has indicated her understanding and acceptance of the risks and procedures discussed.
[~2018-05-24 05:56] MED LIST changes: -BUPIVACAINE (PF) 0.5% 30 ML VIAL SQ ONE; -MIDAZOLAM 2 MG/2 ML VIAL ONE; +ONDANSETRON 4 MG/2 ML VIAL IVP ONE; -PROPOFOL 10 MG/ML 20 ML VIAL IV ONE; -Pre Op ABX Message 1 EACH MISC MISCELLANE ONE; +SCOPOLAMINE 1.5MG/72HR PATCH TRANSDERM ONE; +ceFAZolin IN SWFI 2 GM/20 ML SYRINGE IVP ONE; -fentaNYL (PF) 50 MCG/ML 2 ML AMP ONE
[2018-05-24] MEDS ORDERED: MIDAZOLAM 2 MG/2 ML VIAL ONE ×3 (07:02→07:39)
[2018-05-24] MEDS ORDERED: SUCCINYLCHOLINE CHLORIDE 100 MG/5 ML SYR IV ONE (07:39)
[2018-05-24] MEDS ORDERED: fentaNYL (PF) 50 MCG/ML 2 ML AMP ONE (07:39)
[2018-05-24] MEDS ORDERED: PROPOFOL 10 MG/ML 20 ML VIAL IV ONE (07:39)
[2018-05-24] MEDS ORDERED: LIDOCAINE 1% INJ 10MG/ML (20 ML MDV) ONE (07:39)
[2018-05-24] MEDS ORDERED: EPINEPHrine 1 MG/ML 1 ML AMP SQ ONE (07:55)
[2018-05-24] MEDS ORDERED: GENTAMICIN 80 MG in SODIUM CHLORIDE 0.9% 500 ML IRRIGATION ONE (08:00)
--- NOTE | 2018-05-24 08:58 | P.OP ---
Date of Procedure: 05/24/18 Preoperative Diagnosis: Stress urinary incontinence Postoperative Diagnosis: Stress urinary incontinence Procedure(s) Performed: Obturyx trans-obturator mid urethral sling and cystoscopy Anesthesia: MERCEDA Surgeon: Lonnie Eaton Estimated Blood Loss (ml): 30 Pathology: none sent Condition: stable Disposition: PACU Indications for Procedure: The patient is a 38-year-old female with a history of urinary leakage which occurs both associated with a sense of urgency and also with activities such as coughing, sneezing and lifting. On examination the patient has a hypermobile bladder neck and stress incontinence has been confirmed in the supine position with coughing. Patient also has pelvic organ prolapse and hysterectomy with anterior/posterior colporrhaphy is planned by Dr. Gómez. Treatment options for the stress component of the patient's urinary leakage have been reviewed and the patient has elected to proceed with a trans-obturator synthetic mid urethral sling. She is aware that the urgency incontinence may persist even if the stress incontinence is reduced or resolves. Description of Procedure: The patient was taken the operating suite where general anesthesia via orotracheal the patient was instituted. The patient was placed in the dorsal lithotomy position with her legs suspended from ankle straps. Pneumatic compression stockings were applied to the lower legs. A perineal and vaginal prep with Betadine solution was performed. Dr. Gómez initially performed a vaginal hysterectomy and anterior colporrhaphy. The vaginal mucosa was dissected away from the periurethral tissue and left open by Dr. Gómez. A finger could be passed lateral to the urethra on each side through the vaginal opening and directed to the corresponding obturator foramen. 8 mm skin incisions were then made in the right and left groins at a level adjacent to the clitoris. A curved introducer was placed through the left groin incision, through the obturator foramen superior to the inferior pubic ramus and then directed out lateral to the mid urethra with a finger placed through the vaginal incision. One end of an Obturyx graft was attached to the introducer which was then pulled up into the groin incision. An identical procedure was then performed on the right side. The 19-Chinese cystoscope sheath with 30 lens was then passed through the urethra and into the bladder. Both ureteral orifices were normal location and configuration and effluxed clear urine. The bladder was free of blood, tumor foreign body and bladder perforation. The cystoscope was withdrawn. A 16-Chinese Ramos catheter was inserted and left gravity drainage. The Obturyx graft was positioned under the mid urethra and the plastic sheathing removed. Correct position of the graft was confirmed and there was no upward traction of the periurethral tissue from the graft. Dr. Gómez completed the anterior colporrhaphy and close the vaginal mucosa with running 2-[address] Gómez completed the procedure by performing an anterior colporrhaphy. Vaginal packing was inserted by Dr. Gómez and the procedure was terminated. Patient tolerated procedure well and left the op room awake and in satisfactory condition. Blood loss during the performance of the mid urethral sling was less than 30 mL. Final sponge needle and instrument counts were counts were reported as correct.
[2018-05-24] MEDS ORDERED: LACTATED RINGERS 1,000 ML IV ONE (09:09)
--- NOTE | 2018-05-24 09:29 | P.OP ---
Date of Procedure: 05/24/18 Preoperative Diagnosis: Uterine prolapse with cystocele and rectocele Urinary stress incontinence Postoperative Diagnosis: Same Procedure(s) Performed: Total vaginal hysterectomy with anterior and posterior vaginal colporrhaphy Trans obturator pubic sling performed by Dr. Eaton Anesthesia: ARIADNE Surgeon: Yolanda Gómez Imaging Account Manager #1: Evelyn Marks Estimated Blood Loss (ml): 600 Pathology: other (Uterus with cervix, vaginal mucosa) Condition: stable Disposition: floor Indications for Procedure: This is a 38-year-old female 4 para 3 who presents for total vaginal hysterectomy with anterior and posterior vaginal colporrhaphy along with trans- obturator sling to be performed by Dr. Eaton. She started having symptomatic pelvic organ prolapse during her last and it has continued since . In addition she continues to have urinary stress incontinence. She has consented to the above noted procedure. Operative Findings: Grade 2 uterine prolapse noted. Grade 2-3 cystocele is noted. Grade 1-2 rectocele is noted. Vaginal mucosa is friable. Neither ovary is completely visualized. Description of Procedure: The patient is taken the operating room where she is placed in the dorsal lithotomy position. She is prepped and draped in the normal sterile fashion. Next a weighted speculum was placed in the patient's vagina and a right angle retractor was used to visualize the cervix. The anterior lip of the cervix is grasped with a single-tooth tenaculum. Next the cervix was circumferentially injected with one amp of epinephrine to 150 mL of normal saline. Next the cervix was circumscribed with a scalpel. The vaginal mucosa was pushed away from the cervix with a sponge. Next the uterosacral ligaments are clamped on either side with a Tashi clamp, cut with Mena scissors, and then sutured with 0 Vicryl suture in a Tashi transfixion stitch and then held on either side with a straight hemostat. Next the posterior peritoneal reflection was identified and entered sharply with Mena scissors. The edges of the vaginal mucosa was then tagged with 0 Vicryl suture and held with a curved hemostat for identification. Next a longbilled weighted speculum was placed through the posterior peritoneal reflection. Next the cardinal ligaments were clamped on either side with Tashi clamps, cut with Mena scissors, and then sutured with 0 Vicryl suture in Tashi transfixion stitches and cut. Next the vesicouterine peritoneum reflection is identified and already opened up just with pushing with a sponge. A right angle bladder retractor is then used to retract the bladder. The uterine arteries are clamped on either side with Tashi clamps, cut with Mena scissors, and then sutured with 0 Vicryl suture in Tashi transfixion stitches. The round ligament is also clamped on either side with a Tashi clamp, cut with Mena scissors, and sutured with 0 Vicryl suture in Tashi transfixion stitches. Next the uterine ovarian ligament and tube were clamped on either side with a Tashi clamp, cut with Mena scissors, and then sutured with 0 Vicryl suture in a [id number] stitch, flashed, and then free tied with another suture of 0 Vicryl suture. These pedicles were held with a straight Juliocesar for identification. The uterus is removed from the field. Excellent hemostasis is noted. Next the peritoneum is closed with 0 Vicryl suture in a pursestring fashion incorporating all the held ligaments. Again neither ovary was visualized prior to closing the vaginal cuff area. Both tubes are visualized and appeared normal. Next attention was turned to the cystocele repair. The edges of the vaginal mucosa are held with 2 Allis clamps. Next injection of the same epinephrine solution is injected underneath the mucosa upwards towards the urethra. Metzenbaum scissors were used to dissect underneath the vaginal mucosa and cut along the way up to just below the urethra. Sharp and blunt dissection are used to dissect the bladder away from the vaginal mucosa. Once the bladder is freed, the cystocele is reduced with 0 Vicryl suture in [id number] stitches on either side of the cystocele. Next the edges of the vaginal mucosa are trimmed with Metzenbaum scissors. Dr. Eaton performed his portion of the procedure next which will be dictated separately. He also placed a catheter and cystoscopy was performed with no bleeding noted. Next the vaginal mucosa is sutured with 0 Vicryl suture in a running locked fashion incorporating the vaginal cuff. The uterine ovarian ligaments are tied together in the midline. The uterosacral ligaments were also tied together in the midline prior to completely closing the vaginal cuff. Next attention was turned towards the posterior repair. The introitus was grasped with 2 Allis clamps at 4 and 8 o'clock position. Next injection of the same epinephrine solution is injected underneath the vaginal mucosa upwards towards the cuff. The scalpel was then used to remove a small triangle portion of tissue between the 2 Allis clamps. Next Metzenbaum scissors are used to dissect underneath the vaginal mucosa upwards towards the cuff. The edges of the vaginal mucosa are held with Allis clamps. The rectocele is reduced away from the vaginal tissue with sharp and blunt dissection. The rectocele was then reduced with 0 Vicryl suture in interrupted [id number] stitches on either side of the defect. The edges of the vaginal mucosa are trimmed. Next the vaginal mucosa is sutured with 0 Vicryl suture in a running locked fashion up to the introitus and then brought underneath the skin, whipstitched along the connective tissue under the skin and then at the apex of the perineum brought back to the skin and sutured in a subcuticular fashion up to the introitus and tied. Once adequate hemostasis is noted, the vagina is packed with one-inch iodoform gauze with bacitracin ointment. Ramos bag is attached and clear urine is noted. All sponge and needle counts are correct and the patient is then taken to recovery room in stable condition.
[2018-05-24] MEDS: HYDROmorphone 0.5 MG/0.5 ML SYRINGE IVP PRN ×4 (09:43→10:07)
[2018-05-24] MEDS ORDERED: MEPERIDINE 50 MG/ML SYRINGE IVP ONE (10:21)
[2018-05-24] MEDS ORDERED: Acetaminophen-Codeine 300-30mg TAB PO PRN ×2 (11:01)
[2018-05-24] MEDS ORDERED: ZOLPIDEM 5 MG TAB PO PRN (11:01)
[2018-05-24] MEDS ORDERED: diphenhydrAMINE 50 MG/ML 1 ML VIAL IVP PRN (11:01)
[2018-05-24] MEDS ORDERED: METOCLOPRAMIDE 5 MG/ML 2 ML VIAL IVP PRN (11:01)
[2018-05-24] MEDS ORDERED: ALBUTEROL NEBULIZED 2.5 MG/3 ML INHALATION PRN (11:01)
[2018-05-24] MEDS ORDERED: SIMETHICONE 80 MG CHEWABLE PO PRN (11:01)
[2018-05-24] MEDS ORDERED: ONDANSETRON 4 MG/2 ML VIAL IVP PRN (11:01)
[2018-05-24] MEDS: LACTATED RINGERS 1,000 ML IV SCH ×2 (11:12→16:10)
[2018-05-24] MEDS: busPIRone HCl 5 MG TAB PO SCH ×2 (11:14→21:19)
[2018-05-24] MEDS: KETOROLAC 30 MG/ML 1 ML VIAL IVP PRN ×2 (11:25→20:02)
[2018-05-24] MEDS: TOPIRAMATE 100 MG TAB PO SCH ×2 (12:06→21:19)
[2018-05-24] MEDS: SERTRALINE 100 MG TAB PO SCH ×2 (12:06→21:18)
[2018-05-24] MEDS: PREGABALIN 75 MG CAP PO SCH ×2 (12:06→21:39)
[2018-05-24] MEDS: SENNOSIDES-DOCUSATE SODIUM 1 EACH TAB PO SCH ×2 (13:37→20:04)
[2018-05-24] MEDS: MORPHINE SULFATE 4 MG/ML SYRINGE IVP PRN (15:48)
[2018-05-24] MEDS: PANTOPRAZOLE 40 MG TABLET PO SCH (21:18)
[2018-05-25] MEDS: MORPHINE SULFATE 4 MG/ML SYRINGE IVP PRN ×2 (00:56→06:41)
[2018-05-25] MEDS: LACTATED RINGERS 1,000 ML IV SCH ×2 (01:52→21:44)
[2018-05-25] MEDS: KETOROLAC 30 MG/ML 1 ML VIAL IVP PRN (04:22)
[2018-05-25 06:12] LABS: Basophils % (A) 0 %; Eosinophils # (A) 0.1 k/uL (0-0.7); Eosinophils % (A) 1 %; HCT 30.5 % (34.0-46.0); Lymphocytes # (A) 3.7 k/uL (1.0-4.8); Lymphocytes % (A) 32 %; MCH 29.3 pg (25.0-35.0); MCHC 32.8 g/dL (31.0-37.0); MCV 89.3 fL (80.0-100.0); Monocytes # (A) 0.6 k/uL (0-1.0); Monocytes % (A) 6 %; Neutrophils # (A) 6.8 k/uL (1.3-7.7); Neutrophils % (A) 60 %; Platelet Count 260 k/uL (150-450); RBC 3.42 m/uL (3.80-5.40); RDW 13.7 % (11.5-15.5); WBC 11.4 k/uL (3.8-10.6)
[2018-05-25] MEDS ORDERED: ACETAMINOPHEN TAB 325 MG TAB PO PRN (07:46)
--- NOTE | 2018-05-25 08:55 | P.PN ---
Subjective Progress Note Date: 05/25/18 Principal diagnosis: Status post total vaginal hysterectomy with anterior and posterior vaginal repair and trans-obturator sling postoperative day #1 Patient is doing okay however states her pain is still significant. Lochia is decreasing. She has been able to urinate this morning. She is tolerating regular diet. She states the Tylenol 3 just makes her feel nauseated but does not help with her pain. She has been receiving IV morphine and Toradol for pain. She has ambulated. Objective - Vital Signs Vital signs: Vital Signs Temp 98.2 F 05/25/18 00:00 Pulse 80 05/25/18 00:00 Resp 18 05/25/18 00:00 BP 96/53 05/25/18 00:00 Pulse Ox 97 05/25/18 00:00 Intake & Output 05/24/1805/25/05/25/18 18:59 06:59 18:59 Intake Total 1301 Output Total 1600 900 200 Balance -299 -900 -200 Weight 86.183 kg Intake: IV 1301 Output: Urine 1000 900 200 Uretheral (Ramos) 500 200 Estimated Blood Loss 600 Other: Voiding Method Indwelling Catheter # Voids 1 - Constitutional General appearance: Present: cooperative, no acute distress - Gastrointestinal General gastrointestinal: Present: normal bowel sounds. Absent: tenderness - Genitourinary Genitourinary Comment(s): Scant serosanguineous discharge is noted on francisco-pad. - Musculoskeletal Musculoskeletal Comment(s): Negative Homans - Labs CBC & Chem 7: 05/25/18 05:33 Labs: Abnormal Lab Results - Last 24 Hours (Table) 05/25/18 Range/Units 05:33 WBC 11.4 H (3.8-10.6) k/uL RBC 3.42 L (3.80-5.40) m/uL Hgb 10.0 L D (11.4-16.0) gm/dL Hct 30.5 L (34.0-46.0) % Assessment and Plan Assessment: Impression is status post TVH with anterior and posterior repair and trans- obturator sling postoperative day #1 (1) Cystocele with uterine prolapse Current Visit: No Status: Acute Code(s): N81.4 - UTEROVAGINAL PROLAPSE, UNSPECIFIED SNOMED Code(s): 056017482 (2) Rectocele Current Visit: No Status: Acute Code(s): N81.6 - RECTOCELE SNOMED Code(s) : 602750317 (3) Mixed stress and urge urinary incontinence Current Visit: No Status: Acute Code(s): N39.46 - MIXED INCONTINENCE SNOMED Code(s): 402616480 Plan: Will switch Tylenol 3 to [place]. Will Hep-Lock IV and try to limit IV meds. Encouraged ambulation.
[2018-05-25] MEDS: TOPIRAMATE 100 MG TAB PO SCH ×2 (09:04→21:02)
[2018-05-25] MEDS: busPIRone HCl 5 MG TAB PO SCH ×2 (09:05→21:04)
[2018-05-25] MEDS: SERTRALINE 100 MG TAB PO SCH ×2 (09:06→21:04)
[2018-05-25] MEDS: SENNOSIDES-DOCUSATE SODIUM 1 EACH TAB PO SCH ×2 (09:06→21:03)
[2018-05-25] MEDS: IBUPROFEN 600 MG TAB PO PRN ×3 (09:28→22:15)
[2018-05-25] MEDS: PREGABALIN 75 MG CAP PO SCH ×2 (09:29→21:03)
--- NOTE | 2018-05-25 10:32 | P.PN ---
Progress Note - Text Progress Note Date: 05/25/18 The patient is afebrile. She is tolerating a diet and is ambulatory. Her main complaint is lower abdominal discomfort. Her catheter and vaginal packing were removed this morning. The patient has been able to void and her post void residuals have been less than 50 mL. The patient could be discharged today from my standpoint but she will be observed overnight due to her lower abdominal discomfort. The patient will see me in follow-up in 3 weeks.
[2018-05-25] MEDS: HYDROcodone/APAP 7.5-325MG 1 EACH TAB PO PRN ×2 (13:05→18:12)
[2018-05-25] MEDS: PANTOPRAZOLE 40 MG TABLET PO SCH (21:03)
[2018-05-26] MEDS ORDERED: IBUPROFEN 600 MG TAB PO ONE (01:00)
[2018-05-26] MEDS ORDERED: HYDROcodone/APAP 7.5-325MG 1 EACH TAB ONE (01:00)
[2018-05-26] MEDS: HYDROcodone/APAP 7.5-325MG 1 EACH TAB PO PRN (07:10)
[2018-05-26 07:24] VITALS: BP 100/58; PULSE 77; RESP 16; TEMP 97.8
--- NOTE | 2018-05-26 08:03 | P.DS ---
Providers Date of admission: 05/24/18 05:56 Expected date of discharge: 05/26/18 Attending physician: Lonnie Eaton Primary care physician: Augustine Yung - Discharge Diagnosis(es) (1) Cystocele with uterine prolapse Current Visit: No Status: Acute (2) Rectocele Current Visit: No Status: Acute (3) Mixed stress and urge urinary incontinence Current Visit: No Status: Acute Hospital Course: This is a 38-year-old female who underwent a total vaginal hysterectomy with anterior and posterior vaginal colporrhaphy along with trans-obturator mid urethral sling on 05/24/2018. Postoperatively she has done fairly well. She was having more pain on postoperative day #1 and therefore was placed on Phoenix for pain control. This has helped overall. She is passing flatus and a small bowel movement. She is urinating without difficulty with low residuals. Bleeding has been minimal. Her suprapubic pain is about the same as it was before surgery. She is ambulating without difficulty. Vital signs are stable. Abdomen is soft with positive bowel sounds 4. Beth-pad shows minimal serosanguineous discharge. Extremities show negative Homans. Impression is status post TVH with anterior and posterior repair along with trans-obturator mid urethral sling, postoperative day #2. Plan is to discharge home today. She will be given a prescription for ibuprofen and for Phoenix. She was counseled on narcotics and did sign the start opioid consent. All her questions were answered. She will will follow-up in the office in 1 week for a postoperative check. She is advised to call the office if she has any further questions or concerns prior to her appointment time. Procedures: Total vaginal hysterectomy with anterior and posterior vaginal colporrhaphy Trans-obturator mid urethral sling performed by Dr. Eaton Patient Condition at Discharge: Stable Plan - Discharge Summary Discharge Rx Participant: No New Discharge Prescriptions: New HYDROcodone/APAP 7.5-325MG [P[place]enix 7.5-325] 1 each PO Q6H PRN #28 tab PRN Reason: Moderate To Severe Pain Ibuprofen [Motrin] 600 mg PO Q6HR PRN #60 tab PRN Reason: Mild Discomfort Sennosides-Docusate Sodium [Senokot-S] 2 each PO BID tab Continue Folic Acid 0.4 mg PO DAILY Cholecalciferol (Vitamin D3) [Vitamin D3] 3,000 tab PO DAILY Biotin 5 mg PO BID Acetaminophen [Tylenol] 650 mg PO Q6HR PRN PRN Reason: Pain Sertraline [Zoloft] 100 mg PO BID busPIRone HCL 5 mg PO BID Pregabalin [Lyrica] 75 mg PO BID Topiramate [Topamax] 100 mg PO BID Albuterol Inhaler [Ventolin Hfa Inhaler] 1 - 2 puff INHALATION RT-Q6H PRN PRN Reason: ASTHMA SX Omeprazole [PriLOSEC] 20 mg PO HS Discontinued [place] Fe (Bcp) 1 tab PO HS Discharge Medication List Folic Acid 0.4 mg PO DAILY 06/11/16 [History] Biotin 5 mg PO BID 09/03/17 [History] Cholecalciferol (Vitamin D3) [Vitamin D3] 3,000 tab PO DAILY 09/03/17 [History] Acetaminophen [Tylenol] 650 mg PO Q6HR PRN 10/06/17 [History] Sertraline [Zoloft] 100 mg PO BID 12/14/17 [History] Albuterol Inhaler [Ventolin Hfa Inhaler] 1 - 2 puff INHALATION RT-Q6H PRN [History] Omeprazole [PriLOSEC] 20 mg PO HS 05/17/18 [History] Pregabalin [Lyrica] 75 mg PO BID 05/17/18 [History] Topiramate [Topamax] 100 mg PO BID 05/17/18 [History] busPIRone HCL 5 mg PO BID 05/17/18 [History] HYDROcodone/APAP 7.5-325MG [[place] 7.5-325] 1 each PO Q6H PRN #28 tab 05/26/18 [ Rx] Ibuprofen [Motrin] 600 mg PO Q6HR PRN #60 tab 05/26/18 [Rx] Sennosides-Docusate Sodium [Senokot-S] 2 each PO BID tab 05/26/18 [Rx] Follow up Appointment(s)/Referral(s): Lonnie Eaton MD [STAFF PHYSICIAN] - 3 Weeks Yolanda Gómez DO [Doctor of Osteopathic Medicine] - 1 Week Activity/Diet/Wound Care/Special Instructions: Activity as tolerated. Diet as tolerated. May shower, but no tub baths. No driving until off of narcotic pain medication. No heavy lifting, pushing, pulling, or straining. Discharge Disposition: HOME SELF-CARE
[2018-05-26] MEDS: SERTRALINE 100 MG TAB PO SCH (08:44)
[2018-05-26] MEDS: PREGABALIN 75 MG CAP PO SCH (08:44)
[2018-05-26] MEDS: busPIRone HCl 5 MG TAB PO SCH (08:44)
[2018-05-26] MEDS: TOPIRAMATE 100 MG TAB PO SCH (08:45)
== END 2018-05-26 08:58 | disposition home or self-care (01) | DRG 743 ==
LOC: 2ORMAIN 05:56 → 4FBP 09:17
PROVIDERS: ADMIT Urology; ATTEND Urology
PROC: 0TSD0ZZ Reposition Urethra, Open Approach (ICD-10-PCS; principal; 2018-05-24 07:30)
PROC: 0UT97ZZ Resection of Uterus, Via Natural or Artificial Opening (ICD-10-PCS; 2018-05-24 07:30)
PROC: 0JQC0ZZ Repair Pelvic Region Subcutaneous Tissue and Fascia, Open Approach (ICD-10-PCS; 2018-05-24 07:30)
DX: N81.4 Uterovaginal prolapse, unspecified (principal); F41.9 Anxiety disorder, unspecified; J45.909 Unspecified asthma, uncomplicated; K21.9 Gastro-esophageal reflux disease without esophagitis; N39.46 Mixed incontinence; Z82.49 Family history of ischemic heart disease and other diseases of the circulatory system; Z86.59 Personal history of other mental and behavioral disorders; Z79.899 Other long term (current) drug therapy; Z91.041 Radiographic dye allergy status; Z91.011 Allergy to milk products; Z91.018 Allergy to other foods
CPT/HCPCS: 81025; 85025; 86850; 86900; 86901; 88302; 88307

== ENCOUNTER 2018-08-26 08:37 | Day surgery (SDC) | payer OTHER ==
[2018-08-24 14:41] VITALS: BMI 27.1
[~2018-08-26 08:37] MED LIST changes: -DEXAMETHASONE SOD PHOSPHATE 10 MG/ML 1 ML VIAL IV ONE; -LACTATED RINGERS 1,000 ML IV SCH; -LIDOCAINE 1% 20 ML VIAL (10MG/ML) FOR IV START INTRADERMA PRN; -ONDANSETRON 4 MG/2 ML VIAL IVP ONE; -SCOPOLAMINE 1.5MG/72HR PATCH TRANSDERM ONE; +SODIUM CHLORIDE 0.9% 1,000 ML IV SCH; -ceFAZolin IN SWFI 2 GM/20 ML SYRINGE IVP ONE
[2018-08-26 09:01] VITALS: RESP 16; TEMP 98
[2018-08-26] MEDS ORDERED: SODIUM CHLORIDE 0.9% 500 ML 500 ML IV ONE (09:09)
[2018-08-26 11:05] VITALS: BP 94/64; PULSE 64
--- NOTE | 2018-08-26 13:27 | P.PCN ---
Preoperative Diagnosis: Diagnosis Recurrent syncope Twelve-lead ECG shows sinus rhythm normal MD narrow QRS normal ST segments normal QT interval no delta waves no epsilon waves Tilt table test per protocol this line blood pressure 106/64 mmHg, Baseline heart rate 72 beats a minute Patient was tilted upright at an angle of 70 per protocol This is a mild drop in blood pressure of between 5-10 mmHg In the upright position blood pressure ranged from 88-95 mmHg with a minimal increase in heart rate into the 80s No evidence for neurocardiogenic syncope No evidence for postural tachycardia syndrome Patient is laid supine her blood pressure increased 217/71 mmHg Impression Mild orthostatic hypotension syndrome
== END 2018-08-26 11:06 | disposition home or self-care (01) ==
LOC: CATHEP 08:37
PROVIDERS: ATTEND Internal Medicine Clinical Cardiac Electrophysiology
DX: I95.1 Orthostatic hypotension (principal)
CPT/HCPCS: 93005; 93660

== ENCOUNTER → 2018-09-15 | Outpatient (CLI) | payer OTHER ==
--- NOTE | 2018-09-15 12:17 | MM ---
Reason for exam: screening (asymptomatic). Baseline mammogram. History: Family history of breast cancer in 2 paternal aunts at age 39. Physical Findings: Nurse did not find any significant physical abnormalities on exam. MG 3D Screening Mammo W/Cad Bilateral CC and MLO view(s) were taken. The breast tissue is heterogeneously dense. This may lower the sensitivity of mammography. There is no discrete abnormality. These results were verbally communicated with the patient and result sheet given to the patient on 09/15/18. ASSESSMENT: Negative, BI-RAD 1 RECOMMENDATION: Routine screening mammogram of both breasts in 1 year.
== END | disposition home or self-care (01) ==
LOC: RADMAMWWP 10:31
PROVIDERS: ATTEND Obstetrics & Gynecology
DX: Z12.31 Encounter for screening mammogram for malignant neoplasm of breast (principal); Z80.3 Family history of malignant neoplasm of breast
CPT/HCPCS: 77063; 77067

== ENCOUNTER → 2018-11-30 | Outpatient (CLI) | payer OTHER ==
--- NOTE | 2018-12-01 11:57 | MR ---
EXAMINATION TYPE: MR cspine/lspine wo con DATE OF EXAM: 11/30/2018 COMPARISON: Prior lumbar spine MRI dated 02/09/2018 HISTORY: Neck and low back pain TECHNIQUE: Multiplanar, multisequence imaging of the lumbar and cervical spine is performed without I V contrast. FINDINGS: Cervical spine MRI: There is reversal the normal cervical lordosis. Loss of disc height signal is pre sent at C5-6 and C6-7, there is associated spondylosis, endplate discogenic marrow signal change. Cer vical vertebral bodies show preserved height. Minimal retrolisthesis grade 1 C6-7. Cervical cord sign al is normal. C2-3: No significant central stenosis, no disc herniation. Foramina are patent. C3-4: Some uncovertebral joint hypertrophy causes right-sided foraminal encroachment. Minimal posteri or broad-based disc bulge causes slight anterior mass effect on the thecal sac. No significant centra l stenosis. C4-5: Mild foraminal encroachment is present. Posterior disc bulge causes slight anterior mass effect on the thecal sac. No significant central stenosis. C5-6: Posterior extension of endplate disc complex causes mild anterior mass effect on the thecal sac . No significant central stenosis. Foraminal encroachment is present right greater than left due to u ncovertebral joint hypertrophy. C6-7: Posterior broad-based disc bulge is present causing mild anterior mass effect on the thecal sac somewhat eccentric towards the left. On mild central stenosis. There is bilateral foraminal encroach ment. C7-T1: Unremarkable IMPRESSION: Multilevel degenerative disc disease, foraminal encroachment. Lumbar MRI: Sagittal images of the lumbar spine show vertebral body heights and alignment to appear satisfactory, stable. The intervertebral discs demonstrate some loss of height and signal at L5-S1, L3-4 compatibl e with disc desiccation and degenerative disc disease.. The conus medullaris is normal in position a nd signal. There is multilevel spondylosis with endplate discogenic marrow signal change. Endplate Sc hmorl's node formation is mild superior endplate L1, L2, L3, L4. Small hemangioma present S1 towards the right as on prior. Slight spinal curvature as on prior. L5-S1: Small posterior broad-based disc bulge shows minimal anterior mass effect on the thecal sac. N o significant central stenosis or foraminal encroachment. L4-5: There is some facet arthropathy with hypertrophy of ligamentum flavum causing some posterior la teral mass effect on the thecal sac. No significant central stenosis. Small posterior disc bulge caus es only slight anterior mass effect on the thecal sac. No foraminal encroachment. L3-4: Broad-based posterior disc bulge causes slight anterior mass effect on the thecal sac. L2-3: Essentially stable. No significant central stenosis, no significant foraminal encroachment evid ent disc herniation. L1-2: Unremarkable. IMPRESSION: Essentially stable degenerative disc disease.
== END | disposition home or self-care (01) ==
LOC: RADMRIMAIN 21:30
PROVIDERS: ATTEND Psychiatry & Neurology Pain Medicine
DX: M50.30 Other cervical disc degeneration, unspecified cervical region (principal); M51.36 Other intervertebral disc degeneration, lumbar region
CPT/HCPCS: 72141; 72148

== ENCOUNTER 2019-03-03 14:10 | Emergency (ER) | payer OTHER ==
[2019-03-03] MEDS ORDERED: METOCLOPRAMIDE 5 MG/ML 2 ML VIAL IVP STA (15:34)
[2019-03-03] MEDS ORDERED: SODIUM CHLORIDE 0.9% 1,000 ML IV STA (15:34)
[2019-03-03] MEDS ORDERED: diphenhydrAMINE 50 MG/ML 1 ML VIAL IVP STA (15:34)
[2019-03-03 15:40] VITALS: PULSE 89; RESP 16; TEMP 98.5
[2019-03-03 16:01] LABS: Basophils % (A) 0 %; Eosinophils # (A) 0.2 k/uL (0-0.7); Eosinophils % (A) 3 %; HGB 14.2 gm/dL (11.4-16.0); Lymphocytes # (A) 2.6 k/uL (1.0-4.8); Lymphocytes % (A) 35 %; MCH 29.3 pg (25.0-35.0); MCV 88.9 fL (80.0-100.0); Monocytes # (A) 0.4 k/uL (0-1.0); Monocytes % (A) 6 %; Neutrophils % (A) 54 %; Platelet Count 299 k/uL (150-450); RBC 4.84 m/uL (3.80-5.40); RDW 13.6 % (11.5-15.5); WBC 7.4 k/uL (3.8-10.6)
[2019-03-03 16:10] LABS: ALT 23 U/L (9-52); AST 15 U/L (14-36); Albumin 4.7 g/dL (3.5-5.0); Alkaline Phosphatase 69 U/L (38-126); Anion Gap 10 mmol/L; Blood Urea Nitrogen 7 mg/dL (7-17); Calcium 9.8 mg/dL (8.4-10.2); Carbon Dioxide 24 mmol/L (22-30); Chloride 108 mmol/L (98-107); Glucose 88 mg/dL (74-99); Magnesium 2.2 mg/dL (1.6-2.3); Potassium 4.1 mmol/L (3.5-5.1); Sodium 142 mmol/L (137-145); Total Bilirubin 0.4 mg/dL (0.2-1.3); Total Protein 7.4 g/dL (6.3-8.2)
[2019-03-03 16:14] LABS: INR 0.9 (<1.2); Prothrombin Time 9.5 sec (9.0-12.0)
[2019-03-03] MEDS ORDERED: MORPHINE SULFATE 4 MG/ML SYRINGE IVP STA (16:19)
--- NOTE | 2019-03-03 16:20 | ED ---
General Adult HPI - General Chief complaint: Headache Stated complaint: headaches/left side numbness Time Seen by Provider: 03/03/19 15:11 Source: patient, RN notes reviewed Mode of arrival: wheelchair Limitations: no limitations - History of Present Illness Initial comments: 39-year-old female with a past medical history of degenerative disc disease, a rthritis, migraines, pseudo-fibromyalgia response presents to the emergency department for a chief complaint of headache. Patient states she has had a headache for about a week and a half. States is over the whole head. Denies any visual changes. States this feels consistent with her usual migraines however this one will not go away. Patient also complaining of numbness on the left side of the body. States that she has pins and needles in the left arm and left leg. Patient states she often gets these symptoms problems with her left hip and C7 disc herniation. Patient states the sensation in these extremities feels normal to her. Patient states that the numbness is now radiating up from her neck to the side of her face as well. Patient states that this numbness started about 36 hours ago. Patient has no other complaints at this time including shortness of breath, chest pain, abdominal pain, nausea or vomiting, or visual changes. - Related Data Home Medications Medication Instructions Recorded Confirmed Folic Acid 0.4 mg PO DAILY 06/11/16 03/03/19 Sertraline [Zoloft] 100 mg PO BID 12/14/17 03/03/19 Omeprazole [PriLOSEC] 20 mg PO HS 05/17/18 03/03/19 Topiramate [Topamax] 100 mg PO BID 05/17/18 03/03/19 Biotin 10,000 mcg PO DAILY 08/24/18 03/03/19 Cholecalciferol [Vitamin D3] 5,000 unit PO DAILY 08/24/18 03/03/19 HYDROcodone/APAP 7.5-325MG [[place] 1 tab PO BID PRN 08/24/18 03/03/19 7.5-325] busPIRone HCL [Buspar] 7.5 mg PO BID 08/24/18 03/03/19 Ibuprofen [Motrin] 800 mg PO TID PRN 11/30/18 03/03/19 Pregabalin [Lyrica] 150 mg PO BID 11/30/18 03/03/19 Allergies Allergy/AdvReac Type Severity Reaction Status Date / Time banana Allergy Nausea & Verified 03/03/19 15:10 Vomiting & Diarrhea Iodinated Contrast- Oral and Allergy Swelling Verified 03/03/19 15:10 IV Dye milk AdvReac Mild Abdominal Verified 03/03/19 15:10 Pain Review of Systems ROS Statement: Those systems with pertinent positive or pertinent negative responses have been documented in the HPI. ROS Other: All systems not noted in ROS Statement are negative. Past Medical History Past Medical History: Asthma, GERD/Reflux, Musculoskeletal Disorder, Syncope Additional Past Medical History / Comment(s): Degenerative disc disease, herniated discs in cervical and lumbar spine, signs of arthritis, migraine headaches.History of eating disorde. GERD resolved at this time. Exercise induced asthma. Current separation of pelvis, has difficulty getting to standing position from sitting/lying. Cardiac dysrhythmia. "Psuedo fibromyalgia response." History of Any Multi-Drug Resistant Organisms: None Reported Past Surgical History: Adenoidectomy, Bladder Surgery, Hysterectomy, Orthopedic Surgery, Tonsillectomy Additional Past Surgical History / Comment(s): Laparoscopy, EP Study, Endoscopy, D&C, rectocele and cystocele repair, bladder mesh, urethral sling, carpal tunnel surgery bilateral wrists, 2 ganglion cyts right hand middle digit removed. Past Anesthesia/Blood Transfusion Reactions: Previous Problems w/ Anesthesia Additional Past Anesthesia/Blood Transfusion Reaction / Comment(s): Woke up during endoscopy. Past Psychological History: Anxiety, Depression Smoking Status: Never smoker Past Alcohol Use History: None Reported Past Drug Use History: None Reported - Past Family History Mother Family Medical History: Hypertension Father Family Medical History: CVA/TIA, Myocardial Infarction ([place]) General Exam Limitations: no limitations General appearance: alert, in no apparent distress Head exam: Present: atraumatic, normocephalic, normal inspection Eye exam: Present: normal appearance, PERRL, EOMI. Absent: scleral icterus, conjunctival injection, periorbital swelling ENT exam: Present: normal exam, normal oropharynx (Uvula midline), mucous membranes moist, TM's normal bilaterally, normal external ear exam Neck exam: Present: normal inspection, full ROM. Absent: tenderness, meningismus, lymphadenopathy Respiratory exam: Present: normal lung sounds bilaterally. Absent: respiratory distress, wheezes, rales, rhonchi, stridor Cardiovascular Exam: Present: regular rate, normal rhythm, normal heart sounds. Absent: systolic murmur, diastolic murmur, rubs, gallop, clicks GI/Abdominal exam: Present: soft, normal bowel sounds. Absent: distended, tenderness, guarding, rebound, rigid Neurological exam: Present: alert, oriented X3, CN II-XII intact, normal gait Expanded Patient oriented to: Present: person, place, time Cranial nerves: EOM's Intact: Normal, Tongue Deviation: Normal, Nystagmus: Normal Cerebellar function: Finger to Nose: Normal, Romberg: Normal Upper motor neuron: Pronator Drift: Normal Eye Response: (4) open spontaneously Motor Response: (6) obeys commands Verbal Response: (5) oriented Antionette Total: 15 Psychiatric exam: Present: normal affect, normal mood Course Vital Signs 03/03/19 03/03/19 03/03/19 14:16 15:39 16:54 Temperature 98.8 F 98.5 F Pulse Rate 102 H 89 Respiratory 18 16 Rate Blood Pressure 94/66 104/72 111/68 O2 Sat by Pulse 97 98 Oximetry Medical Decision Making - Medical Decision Making 39-year-old female with a past medical history of degenerative disc disease, arthritis, migraines, "pseudo-fibromyalgia" presents to the emergency department for a headache. States this has been going on for about a week and a half. States it is over visual changes. Patient has history is feels exactly the same. Patient also states she has numbness on the left side of her body which is normal for her due to her cervical spine pathology and left hip pain. Nilesh stock uses a cane for this left hip. Patient states the numbness is now rating from her neck to her face. Patient does have some decreased sensation noted however strength 5 out of 5 in upper 70s bilaterally. No drift noted in the arms or legs. CBC CMP unremarkable. CT brain showed no acute intracranial hemorrhage, mass effect, or midline shift. She was given pain medications, feeling much better. At this time patient will be discharged home. However she is to return here if she has any worsening symptoms. - Lab Data Result diagrams: 03/03/19 15:51 03/03/19 15:51 Lab Results 03/03/19 03/03/19 03/03/19 Range/Units 15:51 15:51 15:51 WBC 7.4 (3.8-10.6) k/uL RBC 4.84 (3.80-5.40) m/uL Hgb 14.2 (11.4-16.0) gm/dL Hct 43.0 (34.0-46.0) % MCV 88.9 (80.0-100.0) fL MCH 29.3 (25.0-35.0) pg MCHC 33.0 (31.0-37.0) g/dL RDW 13.6 (11.5-15.5) % Plt Count 299 (150-450) k/uL Neutrophils % 54 % Lymphocytes % 35 % Monocytes % 6 % Eosinophils % 3 % Basophils % 0 % Neutrophils # 4.0 (1.3-7.7) k/uL Lymphocytes # 2.6 (1.0-4.8) k/uL Monocytes # 0.4 (0-1.0) k/uL Eosinophils # 0.2 (0-0.7) k/uL Basophils # 0.0 (0-0.2) k/uL PT 9.5 (9.0-12.0) sec INR 0.9 (<1.2) APTT 24.0 (22.0-30.0) sec Sodium 142 (137-145) mmol/L Potassium 4.1 (3.5-5.1) mmol/L Chloride 108 H (98-107) mmol/L Carbon Dioxide 24 (22-30) mmol/L Anion Gap 10 mmol/L BUN 7 (7-17) mg/dL Creatinine 0.75 (0.52-1.04) mg/dL Est GFR (CKD-EPI)AfAm >90 (>60 ml/min/1.73 sqM) Est GFR (CKD-EPI)NonAf >90 (>60 ml/min/1.73 sqM) Glucose 88 (74-99) mg/dL Calcium 9.8 (8.4-10.2) mg/dL Magnesium 2.2 (1.6-2.3) mg/dL Total Bilirubin 0.4 (0.2-1.3) mg/dL AST 15 (14-36) U/L ALT 23 (9-52) U/L Alkaline Phosphatase 69 (38-126) U/L Total Protein 7.4 (6.3-8.2) g/dL Albumin 4.7 (3.5-5.0) g/dL Disposition Clinical Impression: Migraine, Paresthesia Disposition: HOME SELF-CARE Condition: Good Instructions (If sedation given, give patient instructions): Migraine Headache (ED), Acute Headache (ED) Additional Instructions: Please follow up with primary care in 1-2 days. Please return to the emergency department if you have any worsening symptoms. Is patient prescribed a controlled substance at d/c from ED?: No Referrals: Augustine Yung MD [Primary Care Provider] - 1-2 days Time of Disposition: 17:41
--- NOTE | 2019-03-03 16:42 | CT ---
EXAMINATION TYPE: CT brain wo con DATE OF EXAM: 03/03/2019 COMPARISON: 12/01/2018 HISTORY: Headache x 1 1/2 weeks, left sided numbness. CT DLP: 1094.4 mGycm. Automated Exposure Control for Dose Reduction was Utilized. TECHNIQUE: CT scan of the head is performed without contrast. FINDINGS: There is no acute intracranial hemorrhage, mass effect, or midline shift identified. Poss ible subcentimeter left middle cranial fossa extra-axial meningioma versus bony exostosis is seen, un changed. No mass effect on the temporal lobe is noted. No suspicious extra axial fluid collection. Th e ventricles and sulci are within normal limits in size. The globes are intact and the visualized si nuses are clear. IMPRESSION: No acute intracranial hemorrhage, mass effect, or midline shift is seen.
[2019-03-03 16:56] VITALS: BP 111/68
[2019-03-03] MEDS ORDERED: KETOROLAC 30 MG/ML 1 ML VIAL IVP STA (16:59)
== END 2019-03-03 18:01 | disposition home or self-care (01) ==
LOC: EC 14:10
DX: G43.909 Migraine, unspecified, not intractable, without status migrainosus (principal); R20.2 Paresthesia of skin; F32.9 Major depressive disorder, single episode, unspecified; F41.9 Anxiety disorder, unspecified; Z91.011 Allergy to milk products; Z91.018 Allergy to other foods; Z91.041 Radiographic dye allergy status; Z79.899 Other long term (current) drug therapy
CPT/HCPCS: 99284; 96374; 96375 ×3; 96361 ×2; 36415; 80053; 83735; 85025; 85610; 85730; 70450; J2270; J1200; J2765; J1885

== ENCOUNTER → 2019-03-26 | Outpatient (CLI) | payer OTHER ==
--- NOTE | 2019-03-26 18:48 | MR ---
EXAMINATION TYPE: MR brain wo con DATE OF EXAM: 03/26/2019 COMPARISON: 11/07/2016 MR brain HISTORY: Migraine X3 weeks TECHNIQUE: Multiplanar, multisequence images of the brain and brainstem is performed without intravenous contras t. FINDINGS: Diffusion weighted images demonstrate no evidence of a recent infarct or other diffusion ab normality. There is no extra-axial fluid collection. There are a few scattered punctate foci of subcortical white matter change such as within the frontal lobe on FLAIR fat sat axial image 23 and within the right temporal lobe and parietal lobe on image 1 5 and left temporal lobe on image 12. The ventricular system and cisternal spaces are normal in size and appearance. The brain volume is age appropriate. Midline structures demonstrate normal morphology. The craniocervical junction appears within normal limits. The dural venous sinuses appear patent. The visualized sinuses are clear and the globes are i ntact. Bone marrow is diffusely diminished signal. IMPRESSION: 1. No acute infarct, midline shift or mass effect. 2. Diminished bone marrow signal on T1 diffusely. Correlate with CBC to exclude anemia. This also can be seen in myeloproliferative diseases, obesity, or sequela of chronic disease. 3. Very few punctate foci of nonspecific white matter change, most likely on the basis of microangiop athy given the subcortical distribution.
== END | disposition home or self-care (01) ==
LOC: RADMRIMAIN 11:33
PROVIDERS: ATTEND Psychiatry & Neurology Neurology
DX: R90.89 Other abnormal findings on diagnostic imaging of central nervous system (principal); R51 Headache; Z91.041 Radiographic dye allergy status
CPT/HCPCS: 70551

== ENCOUNTER → 2019-04-06 | Outpatient (CLI) | payer OTHER ==
[2019-04-06 11:41] LABS: Basophils % (A) 0 %; Eosinophils # (A) 0.3 k/uL (0-0.7); Eosinophils % (A) 3 %; HCT 36.6 % (34.0-46.0); HGB 11.8 gm/dL (11.4-16.0); Lymphocytes # (A) 2.9 k/uL (1.0-4.8); Lymphocytes % (A) 32 %; MCH 28.6 pg (25.0-35.0); MCHC 32.2 g/dL (31.0-37.0); MCV 88.6 fL (80.0-100.0); Mean Platelet Volume 7.3; Monocytes # (A) 0.6 k/uL (0-1.0); Monocytes % (A) 7 %; Neutrophils # (A) 4.9 k/uL (1.3-7.7); Neutrophils % (A) 56 %; Platelet Count 291 k/uL (150-450); RBC 4.13 m/uL (3.80-5.40); RDW 14.9 % (11.5-15.5); WBC 8.8 k/uL (3.8-10.6)
== END | disposition home or self-care (01) ==
LOC: LABWHC1 11:07
PROVIDERS: ATTEND Psychiatry & Neurology Pain Medicine
DX: R94.02 Abnormal brain scan (principal)
CPT/HCPCS: 36415; 83735; 85025

== ENCOUNTER → 2019-04-15 | Outpatient (CLI) | payer OTHER ==
--- NOTE | 2019-04-15 14:51 | BD ---
EXAMINATION TYPE: Axial Bone Density DATE OF EXAM: 04/15/2019 COMPARISON: NONE CLINICAL HISTORY: 39 YR OLD FEMALE....ICD-10 CODE: R94.02 ABNORMAL MRI : NA...HYST May, Height: 65.5 Weight: 174 FRAX RISK QUESTIONS: Glucocorticoids (More than 3mos): YES (Ex: prednisone, prednisolone, methylprednisolone, dexamethasone, and hydrocortisone). 3. Menopause before 45: NA..PT IS 39 RISK FACTORS HISTORY OF: PT IS 39 YRS OLD, NO HX OF FRACTURES, BLADDER MESH AND SLING IN PELVIS Family History of Osteoporosis: NONE KNOWN Active: NO, USES CANE Diet low in dairy products/other sources of calcium: A BIT LOW, ALLERGIC Postmenopausal woman: NA....PARTIAL HYST 2017 MEDICATIONS: Prednisone or other steroids: VENTOLIN INHALER PRN, PREDNISONE AND STEROIDAL INJECTIONS, REGULARLY Additional Medications: REFLUX MEDS, TOPAMAX, ZOLOFT,LYRICA, NORCO, VIT D, IBUPROFEN, Additional History: MIGRAINES, BIPOLAR DEPRESSION, POST PSYCHOSIS, RA?, SPINAL STENOSIS, DGD, EXAM MEASUREMENTS: Bone mineral densitometry was performed using the [employer] System. Bone mineral density as measured about the Lumbar spine is: ----- L1-L4(G/cm2): 1.269 T Score Values are as follows: ----- L1: 0.9 ----- L2: 0.9 ----- L3: 1.0 ----- L4: 0.1 ----- L1-L4: 0.7 Bone mineral density FIRST DEXA SCAN.....BASELINE STUDY Bone mineral density about the R hip (g/cm2): 1.073 Bone mineral density about the L hip (g/cm2): 1.031 T Score values are as follows: -----R Neck: 0.0 -----L Neck: 0.0 -----R Total: 0.5 -----L Total: 0.2 Bone mineral density FIRST DEXA SCAN........BASELINE STUDY FRAX%s: THERE IS A 2.8% CHANCE FOR A MAJOR OSTEOPOROTIC FX AND A 0.1% FOR HIP.....PROBABILITY FOR F X IN 10 YRS TIME IMPRESSION: Normal (Values between +1 and -1 indicate normal bone mass). Consider repeating this study in 5 year s or sooner if there is some new clinical indication. NOTE: T-SCORE=SD OF THE YOUNG ADULT MEAN.
== END | disposition home or self-care (01) ==
LOC: RADBDWWP 13:28
PROVIDERS: ATTEND Psychiatry & Neurology Neurology
DX: R94.02 Abnormal brain scan (principal)
CPT/HCPCS: 77080

== ENCOUNTER → 2019-04-26 | Outpatient (CLI) | payer OTHER ==
--- NOTE | 2019-04-26 13:17 | MR ---
EXAMINATION TYPE: MR angio head wo con DATE OF EXAM: 04/26/2019 COMPARISON: CTA [place] December 01, 2018. MRI brain March 26, 2019 HISTORY: Dizziness /Headache /Abn MRI TECHNIQUE: Time of flight images focusing on the [place] were performed without contrast.. 2-D and 3-D postprocessing imaging is performed on MRI scanner. FINDINGS: There is codominant vertebral basilar system. Slight bulbous appearance mid aspect axial im age 51 is seen. There is patent left posterior communicating artery. There is hypoplastic right poste rior communicating artery. There is no significant focal stenosis or aneurysmal change in the posteri or circulation. Images of the anterior circulation show patent anterior communicating artery axial image 86. There is no significant focal stenosis or aneurysmal change. IMPRESSION: No aneurysmal change at the level of the [place]. Findings correlate with recent CTA [place].
== END | disposition home or self-care (01) ==
LOC: RADMRIMAIN 12:21
PROVIDERS: ATTEND Psychiatry & Neurology Neurology
DX: R51 Headache (principal); R42 Dizziness and giddiness; R94.02 Abnormal brain scan
CPT/HCPCS: 70544

== ENCOUNTER 2019-07-01 11:15 | Emergency (ER) | payer OTHER ==
[2019-07-01 11:35] VITALS: RESP 18
[2019-07-01] MEDS ORDERED: KETOROLAC 60 MG/2 ML VIAL IM STA (11:55)
[2019-07-01] MEDS ORDERED: KETOROLAC 30 MG/ML 1 ML VIAL IVP STA (12:14)
[2019-07-01 12:36] LABS: Basophils % (A) 1 %; Eosinophils # (A) 0.2 k/uL (0-0.7); Eosinophils % (A) 2 %; HCT 38.2 % (34.0-46.0); HGB 12.9 gm/dL (11.4-16.0); Lymphocytes # (A) 2.3 k/uL (1.0-4.8); Lymphocytes % (A) 35 %; MCH 30.1 pg (25.0-35.0); MCHC 33.8 g/dL (31.0-37.0); MCV 88.9 fL (80.0-100.0); Mean Platelet Volume 7.7; Monocytes # (A) 0.4 k/uL (0-1.0); Monocytes % (A) 5 %; Neutrophils # (A) 3.6 k/uL (1.3-7.7); Neutrophils % (A) 55 %; Platelet Count 281 k/uL (150-450); RBC 4.29 m/uL (3.80-5.40); WBC 6.6 k/uL (3.8-10.6)
[2019-07-01 12:50] LABS: ALT 16 U/L (9-52); AST 21 U/L (14-36); African American GFR (CKD) >90 (>60 ml/min/1.73 sqM); Albumin 4.2 g/dL (3.5-5.0); Alkaline Phosphatase 71 U/L (38-126); Anion Gap 13 mmol/L; Blood Urea Nitrogen 9 mg/dL (7-17); Calcium 9.3 mg/dL (8.4-10.2); Carbon Dioxide 17 mmol/L (22-30); Chloride 111 mmol/L (98-107); Glucose 109 mg/dL (74-99); Potassium 3.6 mmol/L (3.5-5.1); Sodium 141 mmol/L (137-145); Total Bilirubin 0.3 mg/dL (0.2-1.3); Total Protein 6.9 g/dL (6.3-8.2)
--- NOTE | 2019-07-01 13:07 | CT ---
EXAMINATION TYPE: CT thor lumbar spine wo con DATE OF EXAM: 07/01/2019 COMPARISON: None HISTORY: severe low back pain CT DLP: 1565.[address] of the thoracic and lumbar spine was performed. Bone and soft tissue window settings a re submitted as well as coronal and sagittal reconstructions. There is no evidence for fracture or malalignment. Mild scattered degenerative disc space narrowing o f the thoracic and lumbar levels noted with a mild ventral spondylosis. No obvious disc herniation or central stenosis. If symptoms persist consider MRI. No paraspinal masses seen. IMPRESSION: 1. Degenerative disc disease and spondylosis as noted.
--- NOTE | 2019-07-01 13:15 | CT ---
EXAMINATION TYPE: CT cervical spine wo con DATE OF EXAM: 07/01/2019 COMPARISON: MR cervical spine 11/30/2018 HISTORY: severe neck pain CT DLP: 381.4 mGycm Automated exposure control for dose reduction was used. TECHNIQUE: CT scan of the cervical spine is obtained without contrast, axial images are obtained, sagittal and c oronal reformatted images are also reviewed. FINDINGS: There is reversal the normal cervical lordosis. Spondylosis is present especially at C5-6 and C6-7 wi th associated loss of disc height, there is also loss of disc height C4-5. C5-6 shows foraminal encroachment right greater than left due to uncovertebral joint hypertrophy. Ext ension endplate disc complex results in some anterior mass effect on the thecal sac. There is no sign ificant spinal stenosis. C6-7 shows posterior extension of endplate disc complex causing anterior mass effect on the thecal sa c, mild central canal stenosis, there is foraminal encroachment bilaterally due to uncovertebral join t hypertrophy. Remaining levels show no definite abnormality. There is a spinal curvature noted. Cervical spine is visualized in its entirety from C1 through upper thoracic levels, demonstrates sati sfactory alignment without evidence of acute fracture or dislocation. Prevertebral soft tissue appea rs within normal limits. The C1-C2 articulation is within normal limits on the coronal images. IMPRESSION: Degenerative disc disease, multilevel neural foraminal encroachment, increased sensitivit y could be obtained with cervical MRI. There is no acute fracture or dislocation evident in the cervical spine.
--- NOTE | 2019-07-01 13:24 | XR ---
EXAMINATION TYPE: XR chest 2V DATE OF EXAM: 07/01/2019 COMPARISON: NONE HISTORY: Line pain TECHNIQUE: Frontal and lateral views of the chest are obtained. FINDINGS: There is no focal air space opacity, pleural effusion, or pneumothorax seen. The cardiac silhouette size is within normal limits. The osseous structures are intact. IMPRESSION: No acute cardiopulmonary process.
--- NOTE | 2019-07-01 13:31 | XR ---
EXAMINATION TYPE: XR Hip LT and AP Pelvis DATE OF EXAM: 07/01/2019 COMPARISON: None HISTORY: Pain fall left hip TECHNIQUE: Single AP pelvis and 2 view left hip FINDINGS: No acute fractures are evident. Femoral heads articulate with the acetabulum. Symphysis pub is and sacroiliac joints are normal. Left hip appears normal. No acute fractures or dislocations are evident. IMPRESSION: 1. Normal AP pelvis and left hip
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
[2019-07-01] MEDS ORDERED: FAMOTIDINE 20 MG/2 ML VIAL IV STA (14:22)
[2019-07-01] MEDS ORDERED: methylPREDNISolone SOD SUCCI 125 MG/2 ML VIAL IV STA (14:22)
[2019-07-01] MEDS ORDERED: diphenhydrAMINE 50 MG/ML 1 ML VIAL IVP STA (14:22)
[2019-07-01] MEDS ORDERED: HYDROcodone/APAP 7.5-325MG 1 EACH TAB PO ONE (14:23)
[2019-07-01] MEDS ORDERED: DIAZEPAM 5 MG/ML 2 ML INJ IVP STA (14:23)
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
[2019-07-01 16:21] VITALS: BP 112/65; PULSE 72; TEMP 98.4
== END 2019-07-01 16:20 | disposition home or self-care (01) ==
LOC: EC 11:15
DX: S39.012A Strain of muscle, fascia and tendon of lower back, initial encounter (principal); M54.2 Cervicalgia; M79.18 Myalgia, other site; R79.89 Other specified abnormal findings of blood chemistry; J45.909 Unspecified asthma, uncomplicated; K21.9 Gastro-esophageal reflux disease without esophagitis; G43.909 Migraine, unspecified, not intractable, without status migrainosus; F41.9 Anxiety disorder, unspecified; F32.9 Major depressive disorder, single episode, unspecified; F43.10 Post-traumatic stress disorder, unspecified; Z87.39 Personal history of other diseases of the musculoskeletal system and connective tissue; Z79.899 Other long term (current) drug therapy; Z91.041 Radiographic dye allergy status; Z91.011 Allergy to milk products; Z91.018 Allergy to other foods; Z53.8 Procedure and treatment not carried out for other reasons; Y92.009 Unspecified place in unspecified non-institutional (private) residence as the place of occurrence of the external cause
CPT/HCPCS: 99284; 96374; 96375 ×4; 36415; 93005; 85379; 80053; 85025; 73502; 71046; 72128; 72125; 72131; 71275; J1200; J2930; J3360; J1885; Q9967

== ENCOUNTER 2019-08-05 15:02 | Emergency (ER) | payer OTHER ==
[2019-08-05 15:20] VITALS: BP 128/72; PULSE 84; RESP 20; TEMP 97.9
[2019-08-05] MEDS ORDERED: SODIUM CHLORIDE 0.9% 1,000 ML IV STA ×2 (15:44)
[2019-08-05] MEDS ORDERED: KETOROLAC 30 MG/ML 1 ML VIAL IVP STA (15:46)
[2019-08-05] MEDS ORDERED: METOCLOPRAMIDE 5 MG/ML 2 ML VIAL IVP STA (15:46)
[2019-08-05] MEDS ORDERED: DEXAMETHASONE SOD PHOSPHATE 10 MG/ML 1 ML VIAL IV STA (15:47)
--- NOTE | 2019-08-05 15:54 | ED ---
General Adult HPI - General Chief complaint: Neck Pain/Injury Stated complaint: RFA procedure, head and neck numbness, nausea Time Seen by Provider: 08/05/19 15:30 Source: patient Mode of arrival: ambulatory Limitations: no limitations - History of Present Illness Initial comments: This 39-year-old white female presents with a complaint of nausea vomiting and diarrhea which is been present over the last 2 weeks. She states that if she eats her drinks anything then it seems to go directly through her or she vomits. She does feel dehydrated. She denies any fevers or chills. There is no abdominal pain. She states that she had some radio frequency ablation through a study at Dr. Burns's office for her neck pain and her chronic migraines and h erniated cervical disc. This is been ongoing for the past several months. She did have one previous episode after having the radio frequency ablation and is currently thinking that her symptoms are related to this. She does complain of some pain into her scalp region which is not consistent with her normal migraines. She has some pain into her neck as well. She denies any other complaints or modifying factors. - Related Data Home Medications Medication Instructions Recorded Confirmed Folic Acid 0.4 mg PO DAILY 06/11/16 08/05/19 Sertraline [Zoloft] 100 mg PO BID 12/14/17 08/05/19 Omeprazole [PriLOSEC] 20 mg PO BID 05/17/18 08/05/19 Biotin 10,000 mcg PO DAILY 08/24/18 08/05/19 Cholecalciferol [Vitamin D3] 5,000 unit PO DAILY 08/24/18 08/05/19 HYDROcodone/APAP 7.5-325MG [[place] 1 tab PO BID PRN 08/24/18 08/05/19 7.5-325] busPIRone HCL [Buspar] 7.5 mg PO BID 08/24/18 08/05/19 Pregabalin [Lyrica] 150 mg PO BID 11/30/18 08/05/19 Albuterol Inhaler [Ventolin Hfa 2 puff INHALATION RT-Q6H PRN 07/01/19 08/05/19 Inhaler] Magnesium Oxide [Mag-Ox] 400 mg PO DAILY 07/01/19 08/05/19 Orphenadrine [Norflex] 100 mg PO Q12H 07/01/19 08/05/19 Trospium Chloride [Sanctura] 20 mg PO BID 07/01/19 08/05/19 Galcanezumab-Gnlm [Emgality] 120 mg SQ Q30D 08/05/19 08/05/19 Ibuprofen [Motrin] 600 mg PO Q8HR PRN 08/05/19 08/05/19 Ketorolac [Toradol] 10 mg PO TID PRN 08/05/19 08/05/19 Loperamide HCl [Imodium A-D] 2 mg PO BID PRN 08/05/19 08/05/19 Topiramate [Topamax] 50 mg PO BID 08/05/19 08/05/19 Previous Rx's Medication Instructions Recorded Diazepam [Valium] 2 mg PO Q8HR PRN 4 Days #9 tab 07/01/19 Butalb/Acetaminophen/Caffeine 1 - 2 each PO Q4H PRN #20 tab 08/05/19 [Fioricet] Ondansetron [Zofran] 8 mg PO Q8HR PRN #12 tab 08/05/19 Allergies Allergy/AdvReac Type Severity Reaction Status Date / Time Iodinated Contrast Media Allergy Swelling Verified 08/05/19 15:41 milk AdvReac Mild Abdominal Verified 08/05/19 15:41 Pain banana AdvReac Nausea & Verified 08/05/19 15:41 Vomiting & Diarrhea Review of Systems ROS Statement: Those systems with pertinent positive or pertinent negative responses have been documented in the HPI. ROS Other: All systems not noted in ROS Statement are negative. Past Medical History Past Medical History: Asthma, GERD/Reflux, Musculoskeletal Disorder, Syncope Additional Past Medical History / Comment(s): Degenerative disc disease, herniated discs in cervical and lumbar spine, signs of arthritis, migraine headaches.History of eating disorde. GERD resolved at this time. Exercise induced asthma. Current separation of pelvis, has difficulty getting to standing position from sitting/lying. Cardiac dysrhythmia. "Psuedo fibromyalgia response." History of Any Multi-Drug Resistant Organisms: None Reported Past Surgical History: Adenoidectomy, Bladder Surgery, Hysterectomy, Orthopedic Surgery, Tonsillectomy Additional Past Surgical History / Comment(s): Laparoscopy, EP Study, Endoscopy, D&C, rectocele and cystocele repair, bladder mesh, urethral sling, carpal tunnel surgery bilateral wrists, 2 ganglion cyts right hand middle digit removed. Past Anesthesia/Blood Transfusion Reactions: Previous Problems w/ Anesthesia Additional Past Anesthesia/Blood Transfusion Reaction / Comment(s): Woke up during endoscopy. Past Psychological History: Anxiety, Depression Smoking Status: Never smoker Past Alcohol Use History: None Reported Past Drug Use History: None Reported - Past Family History Mother Family Medical History: Hypertension Father Family Medical History: CVA/TIA, Myocardial Infarction ([place]) General Exam - General Exam Comments Initial Comments: GENERAL: The patient is well nourished and well hydrated. VITAL SIGNS: Heart rate, blood pressure, respiratory rate reviewed as recorded in nurse's notes. EYES: Pupils are round and reactive. Extraocular movements are intact. No conjunctival / lid redness or swelling. ENT: No external evidence of injury, swelling, or ecchymosis. Airway is patent. Throat is clear. NECK: There is some slight tenderness present in the bilateral paracervical musculature. No swelling or evidence of injury. No subcutaneous emphysema. Trachea is midline. No thyroid mass. HEART: Regular rate and rhythm. Good peripheral pulses. LUNGS/CHEST: Breath sounds clear and equal bilaterally. No rales, rhonchi, or wheezes. No ecchymosis, subcutaneous emphysema, or tenderness. ABDOMEN: Abdomen soft without tenderness. No palpable masses or organomegaly. No peritoneal signs. No abdominal wall swelling or ecchymosis. EXTREMITIES: No extremity tenderness. Normal muscle tone and function. No thoracolumbar tenderness. NEUROLOGIC: Sensation is grossly intact. Cranial nerve exam reveals face is symmetrical, tongue is midline, speech is clear. SKIN: No abrasions or ecchymosis is noted. No induration or masses noted. PSYCHIATRIC: Alert and oriented. Appropriate behavior and judgment. Limitations: no limitations Course Vital Signs 08/05/19 15:16 Temperature 97.9 F Pulse Rate 84 Respiratory 20 Rate Blood Pressure 128/72 O2 Sat by Pulse 99 Oximetry Medical Decision Making - Medical Decision Making The patient was seen and examined. All diagnostics are reviewed and IV is started and she does receive some Toradol, Decadron, and Reglan intravenously. She receives ample fluid hydration as well. She has had a hysterectomy in the past so there is no possibility of . The laboratory is reviewed and does show some mild hypokalemia and some mild hypophosphatemia but otherwise no acute abnormalities are noted. She is feeling improved on recheck. It is felt as though she is stable for discharge. The exact cause of her symptoms is not definitively determined but it is felt as though she may benefit from some symptomatic treatment. She will be prescribed some Zofran, Fioricet, and is instructed to take [id number] Imodium. She is agreeable to this plan and leaves in no distress. She is instructed to have close follow-up with her neurologist and primary care physician. Return parameters are discussed. - Lab Data Result diagrams: 08/05/19 16:10 08/05/19 16:10 Lab Results 08/05/19 08/05/19 Range/Units 16:10 16:10 WBC 8.6 (3.8-10.6) k/uL RBC 5.11 (3.80-5.40) m/uL Hgb 15.4 (11.4-16.0) gm/dL Hct 43.7 (34.0-46.0) % MCV 85.4 (80.0-100.0) fL MCH 30.0 (25.0-35.0) pg MCHC 35.2 (31.0-37.0) g/dL RDW 12.8 (11.5-15.5) % Plt Count 265 (150-450) k/uL Neutrophils % 66 % Lymphocytes % 23 % Monocytes % 6 % Eosinophils % 2 % Basophils % 1 % Neutrophils # 5.7 (1.3-7.7) k/uL Lymphocytes # 2.0 (1.0-4.8) k/uL Monocytes # 0.5 (0-1.0) k/uL Eosinophils # 0.1 (0-0.7) k/uL Basophils # 0.1 (0-0.2) k/uL Sodium 141 (137-145) mmol/L Potassium 3.1 L (3.5-5.1) mmol/L Chloride 104 (98-107) mmol/L Carbon Dioxide 24 (22-30) mmol/L Anion Gap 13 mmol/L BUN 8 (7-17) mg/dL Creatinine 0.65 (0.52-1.04) mg/dL Est GFR (CKD-EPI)AfAm >90 (>60 ml/min/1.73 sqM) Est GFR (CKD-EPI)NonAf >90 (>60 ml/min/1.73 sqM) Glucose 103 H (74-99) mg/dL Calcium 10.2 (8.4-10.2) mg/dL Phosphorus 2.4 L (2.5-4.5) mg/dL Magnesium 2.1 (1.6-2.3) mg/dL Total Bilirubin 0.5 (0.2-1.3) mg/dL AST 37 H (14-36) U/L ALT 69 H (9-52) U/L Alkaline Phosphatase 80 (38-126) U/L Total Protein 7.7 (6.3-8.2) g/dL Albumin 4.7 (3.5-5.0) g/dL Disposition Clinical Impression: Headache, Chronic neck pain, Nausea and vomiting, Diarrhea Disposition: HOME SELF-CARE Condition: Good Instructions (If sedation given, give patient instructions): Acute Headache (ED), Acute Nausea and Vomiting (ED), Acute Diarrhea (ED) Additional Instructions: Please take Imodium if needed for diarrhea. Prescriptions: Butalb/Acetaminophen/Caffeine [Fioricet] 1 - 2 each PO Q4H PRN #20 tab PRN Reason: Headache Ondansetron [Zofran] 8 mg PO Q8HR PRN #12 tab PRN Reason: Nausea Is patient prescribed a controlled substance at d/c from ED?: No Referrals: Augustine Yung MD [Primary Care Provider] - 1-2 days Time of Disposition: 17:00
[2019-08-05 16:29] LABS: Basophils # (A) 0.1 k/uL (0-0.2); Basophils % (A) 1 %; Eosinophils # (A) 0.1 k/uL (0-0.7); Eosinophils % (A) 2 %; HCT 43.7 % (34.0-46.0); HGB 15.4 gm/dL (11.4-16.0); Lymphocytes % (A) 23 %; MCHC 35.2 g/dL (31.0-37.0); MCV 85.4 fL (80.0-100.0); Mean Platelet Volume 7.5; Monocytes # (A) 0.5 k/uL (0-1.0); Monocytes % (A) 6 %; Neutrophils # (A) 5.7 k/uL (1.3-7.7); Neutrophils % (A) 66 %; Platelet Count 265 k/uL (150-450); RBC 5.11 m/uL (3.80-5.40); RDW 12.8 % (11.5-15.5); WBC 8.6 k/uL (3.8-10.6)
[2019-08-05 16:39] LABS: ALT 69 U/L (9-52); AST 37 U/L (14-36); African American GFR (CKD) >90 (>60 ml/min/1.73 sqM); Albumin 4.7 g/dL (3.5-5.0); Alkaline Phosphatase 80 U/L (38-126); Anion Gap 13 mmol/L; Blood Urea Nitrogen 8 mg/dL (7-17); Calcium 10.2 mg/dL (8.4-10.2); Carbon Dioxide 24 mmol/L (22-30); Chloride 104 mmol/L (98-107); Glucose 103 mg/dL (74-99); Magnesium 2.1 mg/dL (1.6-2.3); Phosphorus 2.4 mg/dL (2.5-4.5); Potassium 3.1 mmol/L (3.5-5.1); Sodium 141 mmol/L (137-145); Total Bilirubin 0.5 mg/dL (0.2-1.3); Total Protein 7.7 g/dL (6.3-8.2)
== END 2019-08-05 18:07 | disposition home or self-care (01) ==
LOC: EC 15:02
DX: R11.2 Nausea with vomiting, unspecified (principal); R19.7 Diarrhea, unspecified; R51 Headache; M54.2 Cervicalgia; G89.29 Other chronic pain; Z90.710 Acquired absence of both cervix and uterus; E87.6 Hypokalemia; E83.39 Other disorders of phosphorus metabolism; F41.9 Anxiety disorder, unspecified; F32.9 Major depressive disorder, single episode, unspecified; J45.909 Unspecified asthma, uncomplicated; K21.9 Gastro-esophageal reflux disease without esophagitis; Z79.51 Long term (current) use of inhaled steroids; Z79.899 Other long term (current) drug therapy; Z91.011 Allergy to milk products; Z91.041 Radiographic dye allergy status; Z91.018 Allergy to other foods
CPT/HCPCS: 99284; 96374; 96375 ×2; 96361 ×2; 36415; 80053; 83735; 84100; 85025; J1100; J2765; J1885

== ENCOUNTER → 2019-09-01 | Outpatient (CLI) | payer OTHER ==
--- NOTE | 2019-09-01 13:53 | MR ---
PRE AND POSTCONTRAST ENHANCED MRI OF THE BRAIN: CLINICAL HISTORY: Headaches, loss of mobility, syncope, and collapse Comparison: None CONTRAST: 7.5 mL Gadavist Multiplanar and multispin-echo imaging of the brain was performed both before and after the administr ation of contrast. The ventricles, basal cisterns and sulci overlying the cerebral convexities are within normal limits. There is no evidence for midline shift or mass effect. Acute intracranial hemorrhage or extra-axial collection is not evident. There are no abnormal areas of increased or decreased signal intensity within the brain parenchyma. Following contrast administration, there is no evidence for pathologic enhancement or enhancing mass. The paranasal sinuses and mastoid air cells are well-aerated. IMPRESSION: Unremarkable pre and postcontrast enhanced MRI of the brain.
== END | disposition home or self-care (01) ==
LOC: RADMRIMAIN 10:57
PROVIDERS: ATTEND Psychiatry & Neurology Pain Medicine
DX: R51 Headache (principal); R55 Syncope and collapse
CPT/HCPCS: 70553; A9585

== ENCOUNTER → 2019-09-28 | Outpatient (CLI) | payer OTHER ==
--- NOTE | 2019-09-30 11:50 | MM ---
Reason for exam: screening (asymptomatic). Last mammogram was performed 1 year ago. History: Family history of breast cancer in 2 paternal aunts at age 39. Physical Findings: A clinical breast exam by your physician is recommended on an annual basis and results should be correlated with mammographic findings. MG 3D Screening Mammo W/Cad Bilateral CC and MLO view(s) were taken. Prior study comparison: September 15, 2018, bilateral MG 3d screening mammo w/cad. The breast tissue is heterogeneously dense. This may lower the sensitivity of mammography. No significant changes when compared with prior studies. ASSESSMENT: Incomplete: need additional imaging evaluation, BI-RAD 0 RECOMMENDATION: Ultrasound of the right breast. (targeted to palpable and entire quadrant) [facility] will attempt to contact patient to return for ultrasound.
== END | disposition home or self-care (01) ==
LOC: RADMAMWWP 11:07
PROVIDERS: ATTEND Obstetrics & Gynecology
DX: Z12.31 Encounter for screening mammogram for malignant neoplasm of breast (principal)
CPT/HCPCS: 77063; 77067

== ENCOUNTER → 2019-10-28 | Outpatient (CLI) | payer OTHER ==
[2019-10-28 13:22] LABS: Basophils % (A) 0 %; Eosinophils # (A) 0.1 k/uL (0-0.7); Eosinophils % (A) 2 %; HCT 37.5 % (34.0-46.0); HGB 12.8 gm/dL (11.4-16.0); Lymphocytes # (A) 2.3 k/uL (1.0-4.8); Lymphocytes % (A) 34 %; MCH 30.6 pg (25.0-35.0); Monocytes # (A) 0.4 k/uL (0-1.0); Monocytes % (A) 6 %; Neutrophils # (A) 3.8 k/uL (1.3-7.7); Neutrophils % (A) 57 %; Platelet Count 291 k/uL (150-450); RBC 4.17 m/uL (3.80-5.40); RDW 12.8 % (11.5-15.5); WBC 6.8 k/uL (3.8-10.6)
[2019-10-28 19:50] LABS: African American GFR (CKD) 106.9 (60.0-200.0); Albumin 4.4 g/dL (3.80-4.90); Albumin/Globulin Ratio 2.93 (1.60-3.17); Anion Gap 8.8 mmol/L (4.00-12.00); BUN/Creat Ratio 7.5 Ratio (12.00-20.00); Calcium 9.2 mg/dL (8.7-10.3); Carbon Dioxide 25.2 mmol/L (21.6-31.8); Globulin 1.5 g/dL (1.6-3.3); Non-African American GFR(CKD) 92.2 (60.0-200.0); Potassium 3.9 mmol/L (3.5-5.5); Total Bilirubin 0.5 mg/dL (0.2-1.2); Total Protein 5.9 g/dL (6.2-8.2)
[2019-10-28 20:34] LABS: Anti-DNA, DS unit <1.0 IU/mL; Anti-Smith Ab Interp NEGATIVE (NEGATIVE); Cyclic Citrull Pep IgG Unit 0.6 U/mL; Cyclic Citrullinated Pep IgG NEGATIVE (NEGATIVE); DNA Double-Stranded NEGATIVE (NEGATIVE); Scleroderma SC-70 Ab <0.2 AI
== END | disposition home or self-care (01) ==
LOC: LABWHC1 12:32
PROVIDERS: ATTEND Specialist
DX: M47.812 Spondylosis without myelopathy or radiculopathy, cervical region (principal)
CPT/HCPCS: 36415; 80053; 85025; 86160; 86200; 86225; 86235

== ENCOUNTER → 2019-11-08 | Outpatient (CLI) | payer OTHER ==
--- NOTE | 2019-11-10 10:06 | USB ---
Reason for exam: additional evaluation requested from abnormal screening. History: Family history of breast cancer in 2 paternal aunts at age 39. Physical Findings: Nurse Summary: 0.25cm nodule right axilla (nurse chi). US Breast Workup Limited RT Technologist: Selene Jaramillo Right limited breast ultrasound including focal area of concern, retroareolar and axilla demonstrates no cystic or solid lesion seen. These results were verbally communicated with the patient and result sheet given to the patient on 11/08/19. ASSESSMENT: Negative, BI-RAD 1 RECOMMENDATION: Return to routine screening mammogram schedule for both breasts. Manage on a clinical basis with regard to right palpable.
== END | disposition home or self-care (01) ==
LOC: RADUSWWP 09:19
PROVIDERS: ATTEND Obstetrics & Gynecology
DX: N63.31 Unspecified lump in axillary tail of the right breast (principal); N64.4 Mastodynia; R92.8 Other abnormal and inconclusive findings on diagnostic imaging of breast

== ENCOUNTER 2020-05-31 11:50 | Observation (INO) | payer OTHER ==
[2020-05-31] MEDS ORDERED: MECLIZINE 12.5 MG TAB PO STA (13:13)
--- NOTE | 2020-05-31 13:13 | ED ---
Dizziness HPI <Everett Pack - Last Filed: 05/31/20 15:29> - General Source: patient Mode of arrival: ambulatory Limitations: no limitations <Syed Moe - Last Filed: 05/31/20 16:00> - General Chief Complaint: Dizziness Stated Complaint: dizziness Time Seen by Provider: 05/31/20 12:56 - History of Present Illness Initial Comments: Vision is a 40-year-old female presenting to emergency Department with a chief complaint of dizziness. Patient states the symptoms started approximately 4 days ago after she was laying in bed and felt like there was a bug on her leg. Patient states she stood up immediately and leg down and "leaning to the left side". Patient states this also occurred one more time. Patient reports accidentally afterwards she developed dizziness where the room is spinning around her. Patient states the sensation is not resolved for the last 4 days. Patient states she fell several times and hit her head on the way down. Patient states she is not able to live in her house at the moment due to the falling episodes. States she is home alone while her is at work. States she had a similar episode approximately one year ago and she was taking Antivert without any improvement. (Syed Moe) - Related Data Home Medications Medication Instructions Recorded Confirmed Omeprazole [PriLOSEC] 20 mg PO DAILY 05/17/18 05/31/20 HYDROcodone/APAP 7.5-325MG [[place] 1 tab PO BID PRN 08/24/18 05/31/20 7.5-325] Trospium Chloride [Sanctura] 20 mg PO BID 07/01/19 05/31/20 Albuterol Sulfate [Ventolin HFA] 1 - 2 puff INHALATION RT-Q6H PRN 05/31/20 05/31/20 Atorvastatin [Lipitor] 40 mg PO HS 05/31/20 05/31/20 Escitalopram [Lexapro] 20 mg PO DAILY 05/31/20 05/31/20 Methocarbamol [Robaxin-750] 750 mg PO TID 05/31/20 05/31/20 Mirabegron [Myrbetriq] 25 mg PO BID 05/31/20 05/31/20 OXcarbazepine [Trileptal] 150 mg PO BID 05/31/20 05/31/20 Pregabalin [Lyrica] 200 mg PO BID 05/31/20 05/31/20 Topiramate [Topamax] 50 mg PO BID 05/31/20 05/31/20 busPIRone HCL 7.5 mg PO BID 05/31/20 05/31/20 Allergies Allergy/AdvReac Type Severity Reaction Status Date / Time galcanezumab-gnlm Allergy Swelling Verified 05/31/20 15:02 [From Emgality Pen] Iodinated Contrast Media Allergy Swelling Verified 05/31/20 15:02 milk AdvReac Mild Abdominal Verified 05/31/20 15:02 Pain banana AdvReac Nausea & Verified 05/31/20 15:02 Vomiting & Diarrhea Review of Systems ROS Other: All systems not noted in ROS Statement are negative. <Everett Pack - Last Filed: 05/31/20 15:29> ROS Other: All systems not noted in ROS Statement are negative. <Syed Moe - Last Filed: 05/31/20 16:00> ROS Statement: Those systems with pertinent positive or pertinent negative responses have been documented in the HPI. Past Medical History Past Medical History: Asthma, GERD/Reflux, Musculoskeletal Disorder, Syncope Additional Past Medical History / Comment(s): Degenerative disc disease, herniated discs in cervical and lumbar spine, signs of arthritis, migraine headaches.History of eating disorde. GERD resolved at this time. Exercise induced asthma. Current separation of pelvis, has difficulty getting to standing position from sitting/lying. History of Any Multi-Drug Resistant Organisms: None Reported Past Surgical History: Adenoidectomy, Bladder Surgery, Hysterectomy, Orthopedic Surgery, Tonsillectomy Additional Past Surgical History / Comment(s): Laparoscopy, EP Study, Endoscopy, D&C, rectocele and cystocele repair, bladder mesh, urethral sling, carpal tunnel surgery bilateral wrists, 2 ganglion cyts right hand middle digit removed. cervical fusion Past Anesthesia/Blood Transfusion Reactions: Previous Problems w/ Anesthesia Additional Past Anesthesia/Blood Transfusion Reaction / Comment(s): Woke up during endoscopy. Past Psychological History: Anxiety, Depression Smoking Status: Never smoker Past Alcohol Use History: None Reported Past Drug Use History: None Reported - Past Family History Mother Family Medical History: Hypertension Father Family Medical History: CVA/TIA, Myocardial Infarction ([place]) <Syed Moe - Last Filed: 05/31/20 16:00> General Exam Limitations: no limitations General appearance: alert, in no apparent distress Head exam: Present: atraumatic, normocephalic, normal inspection Eye exam: Present: normal appearance, PERRL, EOMI, nystagmus (Lateral nystagmus) Pupils: Present: normal accommodation ENT exam: Present: normal exam, normal oropharynx, mucous membranes moist, TM's normal bilaterally, normal external ear exam Neck exam: Present: normal inspection, full ROM. Absent: tenderness Respiratory exam: Present: normal lung sounds bilaterally. Absent: respiratory distress, wheezes Cardiovascular Exam: Present: regular rate, normal rhythm, normal heart sounds Extremities exam: Present: normal inspection, full ROM, normal capillary refill. Absent: tenderness Back exam: Present: normal inspection, full ROM. Absent: tenderness Neurological exam: Present: alert, oriented X3, CN II-XII intact, normal gait. Absent: motor sensory deficit Psychiatric exam: Present: normal affect, normal mood Skin exam: Present: warm, dry, intact, normal color <Syed Moe - Last Filed: 05/31/20 16:00> Course <Everett Pack - Last Filed: 05/31/20 15:29> Vital Signs 05/31/20 05/31/20 05/31/20 12:04 12:09 13:09 Temperature 98.5 F Pulse Rate 80 Respiratory 18 18 18 Rate Blood Pressure 96/64 O2 Sat by Pulse 98 Oximetry 05/31/20 14:09 Temperature Pulse Rate 84 Respiratory 18 Rate Blood Pressure 108/78 O2 Sat by Pulse 98 Oximetry - Reevaluation(s) Reevaluation #1: 05/31/20 15:30 PA supervision: I pursued a evaluation this case patient has persistent dizziness. About 4 days. Workup was negative for evidence of stroke this point does appear to be consistent with intractable vertigo. Patient will be admitted I did discuss the case with Dr. Ferguson. Neurology will be consulted (Everett Pack) Medical Decision Making - Lab Data Result diagrams: 05/31/20 13:31 05/31/20 13:31 <Everett Pack - Last Filed: 05/31/20 15:29> - Lab Data Result diagrams: 05/31/20 13:31 05/31/20 13:31 <Syed Moe - Last Filed: 05/31/20 16:00> - Medical Decision Making Patient is a 40-year-old female presenting to the emergency department with a chief complaint of dizziness. On exam patient has a negative neurological exam. NIH of 0. Low probability for stroke. Patient does appear to have lateral nystagmus. Positive Mukul-Hallpike maneuver. CT of the brain and cervical spine reveals no acute fractures or dislocations. No intracranial hemorrhage or mass effect detected. CBC reveals mild leukocytosis of 11 K. CMP is unremarkable. Patient given Antivert and Valium. Reevaluation patient continues to be dizzy. Patient was given 2 more milligrams of Valium and Benadryl. Patient was reevaluated again with no improvement of symptoms. Patient will be admitted for intractable dizziness. Case discussed with Dr. Pack. Admitting physician is Neurology consulted. (Syed Moe) - Lab Data Lab Results 05/31/20 05/31/20 Range/Units 13:31 13:31 WBC 11.0 H (3.8-10.6) k/uL RBC 4.88 (3.80-5.40) m/uL Hgb 14.1 (11.4-16.0) gm/dL Hct 43.6 (34.0-46.0) % MCV 89.3 (80.0-100.0) fL MCH 28.9 (25.0-35.0) pg MCHC 32.4 (31.0-37.0) g/dL RDW 12.9 (11.5-15.5) % Plt Count 267 (150-450) k/uL Neutrophils % 74 % Lymphocytes % 17 % Monocytes % 6 % Eosinophils % 1 % Basophils % 0 % Neutrophils # 8.2 H (1.3-7.7) k/uL Lymphocytes # 1.9 (1.0-4.8) k/uL Monocytes # 0.6 (0-1.0) k/uL Eosinophils # 0.1 (0-0.7) k/uL Basophils # 0.0 (0-0.2) k/uL Sodium 140 (137-145) mmol/L Potassium 4.2 (3.5-5.1) mmol/L Chloride 110 H (98-107) mmol/L Carbon Dioxide 22 (22-30) mmol/L Anion Gap 8 mmol/L BUN 14 (7-17) mg/dL Creatinine 0.77 (0.52-1.04) mg/dL Est GFR (CKD-EPI)AfAm >90 (>60 ml/min/1.73 sqM) Est GFR (CKD-EPI)NonAf >90 (>60 ml/min/1.73 sqM) Glucose 104 H (74-99) mg/dL Calcium 9.7 (8.4-10.2) mg/dL Total Bilirubin 0.3 (0.2-1.3) mg/dL AST 22 (14-36) U/L ALT 18 (4-34) U/L Alkaline Phosphatase 81 (38-126) U/L Total Protein 7.1 (6.3-8.2) g/dL Albumin 4.5 (3.5-5.0) g/dL Disposition <Everett Pack - Last Filed: 05/31/20 15:29> Is patient prescribed a controlled substance at d/c from ED?: No Time of Disposition: 15:30 <Syed Moe - Last Filed: 05/31/20 16:00> Clinical Impression: Dizziness Disposition: ADMITTED IP TO THIS [facility] Condition: Good Instructions (If sedation given, give patient instructions): Dizziness (ED) Additional Instructions: Patient will be admitted Referrals: Chance Valdez DO [Primary Care Provider] - 1-2 days
[2020-05-31] MEDS ORDERED: DIAZEPAM 5 MG/ML 2 ML INJ IVP STA ×2 (13:14→14:42)
[2020-05-31 13:45] LABS: Basophils % (A) 0 %; Eosinophils # (A) 0.1 k/uL (0-0.7); Eosinophils % (A) 1 %; HCT 43.6 % (34.0-46.0); HGB 14.1 gm/dL (11.4-16.0); Lymphocytes # (A) 1.9 k/uL (1.0-4.8); Lymphocytes % (A) 17 %; MCH 28.9 pg (25.0-35.0); MCHC 32.4 g/dL (31.0-37.0); MCV 89.3 fL (80.0-100.0); Mean Platelet Volume 8.2; Monocytes # (A) 0.6 k/uL (0-1.0); Monocytes % (A) 6 %; Neutrophils # (A) 8.2 k/uL (1.3-7.7); Neutrophils % (A) 74 %; Platelet Count 267 k/uL (150-450); RBC 4.88 m/uL (3.80-5.40); RDW 12.9 % (11.5-15.5)
[2020-05-31 14:02] LABS: ALT 18 U/L (4-34); AST 22 U/L (14-36); African American GFR (CKD) >90 (>60 ml/min/1.73 sqM); Albumin 4.5 g/dL (3.5-5.0); Alkaline Phosphatase 81 U/L (38-126); Anion Gap 8 mmol/L; Blood Urea Nitrogen 14 mg/dL (7-17); Calcium 9.7 mg/dL (8.4-10.2); Carbon Dioxide 22 mmol/L (22-30); Chloride 110 mmol/L (98-107); Glucose 104 mg/dL (74-99); Non-African American GFR(CKD) >90 (>60 ml/min/1.73 sqM); Potassium 4.2 mmol/L (3.5-5.1); Sodium 140 mmol/L (137-145); Total Bilirubin 0.3 mg/dL (0.2-1.3); Total Protein 7.1 g/dL (6.3-8.2)
--- NOTE | 2020-05-31 14:27 | CT ---
EXAMINATION TYPE: CT brain he gay con DATE OF EXAM: 05/31/2020 COMPARISON: 07/01/2019 HISTORY: Dizziness with multiple falls. CT DLP: 1420.2 mGycm Automated exposure control for dose reduction was used. TECHNIQUE: CT scan of the head and cervical spine are performed without contrast. FINDINGS: There is no acute intracranial hemorrhage, mass effect, or midline shift identified. The ventricles and sulci are within normal limits in size. The globes are intact and the visualized sin uses are clear. There is reversal the normal cervical lordosis. Spondylosis is present especially at C5-6 and C6-7 wi th associated loss of disc height, there is also loss of disc height C4-5. C5-6 shows foraminal encro achment right greater than left due to uncovertebral joint hypertrophy. Extension endplate disc compl ex results in some anterior mass effect on the thecal sac. There is no significant spinal stenosis. C 6-7 shows posterior extension of endplate disc complex causing anterior mass effect on the thecal sac , mild central canal stenosis, there is foraminal encroachment bilaterally due to uncovertebral joint hypertrophy. Remaining levels show no definite abnormality. There is a spinal curvature noted. Cervi remington spine is visualized in its entirety from C1 through upper thoracic levels, demonstrates satisfact ory alignment without evidence of acute fracture or dislocation. Prevertebral soft tissue appears wit hin normal limits. The C1- C2 articulation is within normal limits on the coronal images. Assessment spinal canal nondiagnostic due to artifact and the resolution. IMPRESSION: 1. There is no acute fracture or dislocation evident in the cervical spine. Loss the normal cervical lordosis with postsurgical change and multilevel spondylosis with foraminal encroachment at C5-C6 is suspected. 2. No acute intracranial hemorrhage, mass effect, or midline shift is seen.
[2020-05-31] MEDS ORDERED: diphenhydrAMINE 50 MG/ML 1 ML VIAL IVP STA (14:41)
[2020-05-31] MEDS ORDERED: MORPHINE SULFATE 4 MG/ML SYRINGE IV PRN (15:31)
[2020-05-31] MEDS ORDERED: NALOXONE 0.4 MG/ML 1 ML VIAL IV PRN (15:31)
[2020-05-31] MEDS ORDERED: ONDANSETRON 4 MG/2 ML VIAL IVP PRN (15:31)
[2020-05-31] MEDS ORDERED: LORazepam 2 MG/ML INJ IV PRN (15:31)
[2020-05-31] MEDS: SODIUM CHLORIDE 0.9% 1,000 ML IV SCH (17:50)
[2020-05-31] MEDS ORDERED: ALBUTEROL NEBULIZED 2.5 MG/3 ML INHALATION PRN (18:41)
[2020-05-31] MEDS: TOPIRAMATE 25 MG TAB PO SCH (20:35)
[2020-05-31] MEDS: busPIRone HCl 5 MG TAB PO SCH (20:35)
[2020-05-31] MEDS: ATORVASTATIN 40 MG TAB PO SCH (20:35)
[2020-05-31] MEDS: PREGABALIN 100 MG CAP PO SCH (20:35)
[2020-05-31] MEDS: OXcarbazepine 150 MG TAB PO SCH (20:36)
[2020-05-31] MEDS: TROSPIUM CHLORIDE 20 MG TABLET PO SCH (20:36)
[2020-05-31] MEDS: HYDROmorphone 0.5 MG/0.5 ML SYRINGE IVP PRN (20:37)
[2020-05-31] MEDS ORDERED: SENNOSIDES 8.6 MG TAB PO PRN (21:11)
[2020-05-31] MEDS: NON FORMULARY DRUG (Mirabegron [Myrbetriq] 25 MG) PO SCH (21:15)
[2020-05-31] MEDS: DEXAMETHASONE SOD PHOSPHATE 4 MG/ML 1 ML VIAL PO SCH (21:48)
[2020-05-31] MEDS: methocarbamoL 750 MG TAB PO SCH (21:48)
[2020-05-31] MEDS: MECLIZINE 12.5 MG TAB PO SCH (21:49)
--- NOTE | 2020-05-31 22:51 | HP ---
HISTORY AND PHYSICAL DATE OF SERVICE: 05/31/2020 CHIEF COMPLAINT: Vertigo. HISTORY OF PRESENT ILLNESS: This 40-year-old woman with a past medical history of asthma, GERD, history of DJD, history of adenoidectomy, bladder surgery, history of anxiety, depression, being followed by Dr. Chance Valdez in the outpatient setting, apparently [place] property, then subsequently patient came back and patient, while lying in bed, patient felt there was a bug on her leg; patient looked at it and stood up immediately. The patient was leaning to the left side, but then she had significant rotating sensations which lasted for a few days. Because of lack of improvement and continued difficulties, the patient came to [facility] and was admitted for further evaluation and treatment. The initial evaluation showed WBC 11; otherwise a CT scan of the cervical spine and brain was also done which showed no acute abnormalities; loss of normal cervical lordosis was noted. The patient had spinal fusion surgery recently at [facility]. There is no history of any fever, rigor or chills at this time. PAST MEDICAL HISTORY: History of recent spinal surgery, as mentioned earlier. Asthma, GERD, DJD, syncope. HOME MEDICATIONS: Home medications are buspirone 7.5 mg b.i.d., Sanctura, Topamax, Lyrica, Prilosec, Trileptal, Myrbetriq, Robaxin, [place] 7.5 mg, Lexapro, Lipitor, Ventolin. ALLERGIES: EMGALITY, IODINATED CONTRAST MEDIA, MILK, BANANA. FAMILY HISTORY: History of hypertension in the family. SOCIAL HISTORY: No history of smoking. No history of alcohol intake. REVIEW OF SYSTEMS: ENT: As mentioned earlier. CARDIOVASCULAR SYSTEM: No angina, palpitations. RESPIRATORY SYSTEM: No cough, hemoptysis. GI: No nausea, vomiting. : No dysuria or retention. NERVOUS SYSTEM: As mentioned earlier. ALLERGY/IMMUNOLOGY: No asthma, hayfever. MUSCULOSKELETAL: As mentioned earlier. HEMATOLOGY/ONCOLOGY: No history of anemia. ENDOCRINE: No history of diabetes, hypothyroidism. CONSTITUTIONAL: As mentioned earlier. DERMATOLOGY: Negative. RHEUMATOLOGY: Negative. PSYCHIATRY: As mentioned earlier. PHYSICAL EXAMINATION: Patient alert and oriented x3. Pulse 69, blood pressure 98/66, respiration 14, temperature 98.2, pulse ox 98% on room air. HEENT: Conjunctivae normal. Oral mucosa moist. NECK: No jugular venous distention. No carotid bruit. No lymph node enlargement. CARDIOVASCULAR SYSTEM: S1, S2 muffled. No S3. No S4. RESPIRATORY SYSTEM: Breath sounds diminished at the bases. No rhonchi. No crackles. ABDOMEN: Soft, non-tender. No mass palpable. LEGS: No edema. No swelling. NERVOUS SYSTEM: Higher functions as mentioned earlier. Cranial nerves: some rotary nystagmus and gaze present. Otherwise, moves all 4 limbs. No focal deficits. No signs of cerebellar dysfunction. LYMPHATICS: No lymph node palpable in neck, axillae or groin. SKIN: No ulcer, rash, bleeding. JOINTS: No active deforming arthropathy. LABS: Labs at this time show WBC 11, hemoglobin 14.1. Sodium 140, potassium 4.2. ASSESSMENT: 1. Vertigo, possibly vestibular dysfunction and benign positional vertigo. 2. History of recent cervical fusion. 3. Increased white count. 4. History of asthma. 5. History of gastroesophageal reflux disease. 6. History of musculoskeletal disorder. 7. History of syncope. 8. History of degenerative joint disease. 9. History of eating disorder. 10.History of adenoidectomy. 11.History of bladder surgery. 12.History of anxiety, depression. RECOMMENDATIONS AND DISCUSSION: In this 40-year-old woman who presented with multiple complex medical issues, we will monitor the patient closely, continue the current medications, continue with symptomatic treatment. Otherwise at this time I would recommend symptomatic treatment, meclizine. Neurology evaluation. Guarded prognosis because of multiple complex medical issues. Further recommendations to follow. A copy of this dictation is being forwarded to Dr. Chance Valdez, who is the primary physician. MMODL / IJN: [id number] / MTDD
[2020-06-01 00:13] LABS: Appearance,Urine Cloudy (Clear); Bacteria,Urine Rare /hpf; Bilirubin,Urine Negative (Negative); Blood,Urine Negative (Negative); Color,Urine Yellow; Glucose,Urine (UA) Negative (Negative); Ketones,Urine Negative (Negative); Leukocyte Esterase,Urine Negative (Negative); Mucus,Urine Many /hpf; Nitrite,Urine Negative (Negative); PH, Urine 5.5 (5.0-8.0); Protein,Urine Trace (Negative); RBC,Urine <1 /hpf (0-5); Specific Gravity,Urine 1.029 (1.001-1.035); Squamous Epithelial Cell,Urine 3 /hpf (0-4); WBC,Urine 1 /hpf (0-5)
[2020-06-01] MEDS: SODIUM CHLORIDE 0.9% 1,000 ML IV SCH ×2 (04:00→19:12)
[2020-06-01] MEDS: HYDROmorphone 0.5 MG/0.5 ML SYRINGE IVP PRN ×2 (04:04→15:09)
[2020-06-01] MEDS: DEXAMETHASONE SOD PHOSPHATE 4 MG/ML 1 ML VIAL PO SCH ×4 (06:06→23:42)
[2020-06-01 06:14] LABS: Basophils % (A) 0 %; Eosinophils % (A) 0 %; HCT 40.2 % (34.0-46.0); HGB 12.9 gm/dL (11.4-16.0); Lymphocytes # (A) 0.7 k/uL (1.0-4.8); Lymphocytes % (A) 6 %; MCHC 32.1 g/dL (31.0-37.0); MCV 90.1 fL (80.0-100.0); Mean Platelet Volume 8.5; Monocytes # (A) 0.4 k/uL (0-1.0); Monocytes % (A) 3 %; Neutrophils # (A) 9.9 k/uL (1.3-7.7); Neutrophils % (A) 90 %; Platelet Count 206 k/uL (150-450); RBC 4.46 m/uL (3.80-5.40); WBC 11.1 k/uL (3.8-10.6)
[2020-06-01 06:25] LABS: African American GFR (CKD) >90 (>60 ml/min/1.73 sqM); Anion Gap 9 mmol/L; Blood Urea Nitrogen 11 mg/dL (7-17); Calcium 9.3 mg/dL (8.4-10.2); Carbon Dioxide 17 mmol/L (22-30); Chloride 110 mmol/L (98-107); Glucose 116 mg/dL (74-99); Non-African American GFR(CKD) >90 (>60 ml/min/1.73 sqM); Sodium 136 mmol/L (137-145)
[2020-06-01 06:39] LABS: Potassium 4.4 mmol/L (3.5-5.1)
[2020-06-01 06:41] LABS: Glucose,Whole Blood 102 mg/dL (75-99)
[2020-06-01] MEDS: INSULIN ASPART (NovoLOG) 100 UNIT/ML VIAL SQ SCH ×4 (07:49→21:42)
[2020-06-01] MEDS: TOPIRAMATE 25 MG TAB PO SCH ×2 (08:03→21:00)
[2020-06-01] MEDS: PREGABALIN 100 MG CAP PO SCH ×2 (08:03→21:01)
[2020-06-01] MEDS: PANTOPRAZOLE 40 MG TABLET PO SCH (08:03)
[2020-06-01] MEDS: TROSPIUM CHLORIDE 20 MG TABLET PO SCH ×2 (08:04→21:00)
[2020-06-01] MEDS: busPIRone HCl 5 MG TAB PO SCH ×2 (08:04→20:59)
[2020-06-01] MEDS: HYDROcodone/APAP 7.5-325MG 1 EACH TAB PO PRN ×2 (08:04→21:41)
[2020-06-01] MEDS: NON FORMULARY DRUG (Mirabegron [Myrbetriq] 25 MG) PO SCH ×2 (08:05→21:02)
[2020-06-01] MEDS: MECLIZINE 12.5 MG TAB PO SCH ×3 (08:05→21:01)
[2020-06-01] MEDS: ESCITALOPRAM 20 MG TAB PO SCH (08:05)
[2020-06-01] MEDS: OXcarbazepine 150 MG TAB PO SCH ×2 (08:05→21:00)
[2020-06-01] MEDS: methocarbamoL 750 MG TAB PO SCH ×3 (08:05→21:00)
--- NOTE | 2020-06-01 09:59 | XR ---
EXAMINATION TYPE: XR chest 1V portable DATE OF EXAM: 06/01/2020 Comparison: 07/01/2019 Clinical History: 40-year-old female CHF Findings: Heart normal size. Aorta and pulmonary vasculature within normal limits. The extreme apices are exclu ded from view. Hazy lower lung densities related to overlying soft tissue. No consolidation or pleura l effusion seen. Impression: No acute cardiopulmonary process.
[2020-06-01 11:52] LABS: Glucose,Whole Blood 142 mg/dL (75-99)
--- NOTE | 2020-06-01 15:10 | PN ---
PROGRESS NOTE DATE OF SERVICE: 06/01/2020 This 40-year-old woman who was admitted with vertigo with possible vestibular dysfunction is being closely monitored. No chest pain. No palpitations. Patient also had recent neck surgery also. A CT of the head and cervical spine showed loss of lordosis. No chest pain. No palpitations. No fever. Neurology evaluation pending. PHYSICAL EXAMINATION: Alert and oriented x3. Pulse is 84, blood pressure 107/72, respiration 16, temperature 97.6, pulse ox 98% on room air. HEENT: Normal. NECK: No jugular venous distension. RESPIRATION: Breath sound diminished at the bases, no rhonchi, no crackles. ABDOMEN: Soft, nontender. LEGS: No edema. No swelling. NERVOUS SYSTEMS: No focal deficits. LABS: WBC is 11.1 and hemoglobin 12.2, sodium is 136. ASSESSMENT: 1. Vertigo, possible vascular dysfunction and BPV. 2. History of recent cervical fusion. 3. Increased WBC. 4. History of asthma. 5. History of gastroesophageal reflux disease. 6. History of musculoskeletal disorder. 7. History of syncope. 8. History of degenerative joint disease. 9. History eating disorder. 10.History of adenoidectomy. 11.History of bladder surgery. 12.Anxiety, depression. RECOMMENDATION: In this 40-year-old woman who presented with multiple medical problems, will monitor the patient closely, continue with Antivert and symptomatic treatment. Otherwise, closely follow with Neurology. Increase ambulation. Fall precautions. Repeat labs will be ordered tomorrow. The patient is improving. The patient will be discharged in the next 24-48 hours. COVID-19 is pending at this time. MMODL / IJN: [id number] /
--- NOTE | 2020-06-01 15:39 | P.CNNES ---
History of Present Illness Consult date: 06/01/20 Requesting physician: Everett Pack Reason for Consult: Intractable dizziness History of Present Illness: Patient is a 40-year-old female, who states that she was fine on 05/26/2020, went to check her [employer] property. At night she was laying in the bed at 1 AM when she noticed some paresthesias over the left anterior thigh. She felt it was a bug, she got up to check on it and suddenly started feeling vertigo, and everything started spinning and she almost slumped to the left side. She sat up, but the spinning continued. The symptoms lasted all day Thursday. Whenever she was laying down, or sitting up or walking everything would spin. She required help to walk because of the vertigo. On Thursday, she was home alone, when trying to get up, she hit her top of the head on the doorframe. Did not pass out. On Thursday she was feeling better, but yesterday on , the symptoms came back, therefore she came to the ER at 11:50 AM. Her blood pressure was 96/64, pulse rate 80, temperature 98.5. Patient underwent EKG shows normal sinus rhythm. Chest x-ray showed no acute cardiopulmonary process. CT of the head showed no acute intracranial hemorrhage mass effect or midline shift. CT of the cervical spine revealed no acute fracture or dislocation evident in the cervical spine. Loss of normal cervical lordosis with postural changes and multilevel spondylosis with foraminal enc roachment at C5 6 is suspected. CBC with WBC 11.0 hemoglobin 14.1, normal chem 7. Normal hepatic panel and a UA. Patient states that since Thursday, she has been having significant sinus congestion. She was taking antihistamine, antiallergic, symptoms have improved, but still persistent. Patient is on multiple psychoactive medications including Lexapro 20 mg, Trileptal 150 mg twice a day, Lyrica 200 mg twice a day, Topamax 25 mg twice a day, BuSpar 7.5 mg twice a day, methocarbamol 750 mg 3 times a day and Myrbetriq 25 mg twice a day. Patient had an MRI of brain with and without contrast on 09/19/2019 performed for headache, syncope, which revealed few scattered nonspecific white matter foci noted which remains stable as compared to previous exam. Patient had a MRA of brain without contrast on 04/26/2019 for "dizziness, headache", which revealed no aneurysmal change at the level of [place] of [place]. Patient had a normal CTA of [place] 12/01/2018. MRI of the cervical s pine from 11/30/2018 showed multilevel degenerative disc disease, foraminal encroachment with no spinal stenosis. MRI of the lumbar spine from 11/30/2018 showed essentially stable degenerative disc disease. Patient had a negative CCP, Sjogren's antibodies, anti-Ferro antibodies, STAVE BOLT EQUALIZER antibody, scleroderma antibody, dsDNA and complements on 10/28/2019. RPR, HIV negative. Patient has history of cervical spinal fusion at [facility]. Review of Systems As mentioned in detail in HPI. All other review of systems unremarkable. Complains of neck pain from previous surgery. Uses a brace. Denies any double vision, loss of vision, hoarseness sore throat dysphagia. Denies any new focal numbness tingling or weakness. Denies abdominal pain nausea vomiting diarrhea. Past Medical History Past Medical History: Asthma, GERD/Reflux, Musculoskeletal Disorder, Syncope Additional Past Medical History / Comment(s): Degenerative disc disease, herniated discs in cervical and lumbar spine, signs of arthritis, migraine headaches.History of eating disorde. GERD resolved at this time. Exercise induced asthma. Current separation of pelvis, has difficulty getting to standing position from sitting/lying. History of Any Multi-Drug Resistant Organisms: None Reported Past Surgical History: Adenoidectomy, Bladder Surgery, Hysterectomy, Orthopedic Surgery, Tonsillectomy Additional Past Surgical History / Comment(s): Laparoscopy, EP Study, Endoscopy, D&C, rectocele and cystocele repair, bladder mesh, urethral sling, carpal tunnel surgery bilateral wrists, 2 ganglion cyts right hand middle digit removed. cervical fusion Past Anesthesia/Blood Transfusion Reactions: Previous Problems w/ Anesthesia Additional Past Anesthesia/Blood Transfusion Reaction / Comment(s): Woke up during endoscopy. Past Psychological History: Anxiety, Depression Additional Psychological History / Comment(s): History of psychosis. Smoking Status: Never smoker Past Alcohol Use History: None Reported Past Drug Use History: None Reported - Past Family History Mother Family Medical History: Hypertension Father Family Medical History: CVA/TIA, Myocardial Infarction ([place]) Medications and Allergies Home Medications Medication Instructions Recorded Confirmed Type Omeprazole [PriLOSEC] 20 mg PO DAILY 05/17/18 05/31/20 History HYDROcodone/APAP 7.5-325MG [[place] 1 tab PO BID PRN 08/24/18 05/31/20 History 7.5-325] Trospium Chloride [Sanctura] 20 mg PO BID 07/01/19 05/31/20 History Albuterol Sulfate [Ventolin HFA] 1 - 2 puff INHALATION RT-Q6H PRN 05/31/20 05/31/20 History Atorvastatin [Lipitor] 40 mg PO HS 05/31/20 05/31/20 History Escitalopram [Lexapro] 20 mg PO DAILY 05/31/20 05/31/20 History Methocarbamol [Robaxin-750] 750 mg PO TID 05/31/20 05/31/20 History Mirabegron [Myrbetriq] 25 mg PO BID 05/31/20 05/31/20 History OXcarbazepine [Trileptal] 150 mg PO BID 05/31/20 05/31/20 History Pregabalin [Lyrica] 200 mg PO BID 05/31/20 05/31/20 History Topiramate [Topamax] 50 mg PO BID 05/31/20 05/31/20 History busPIRone HCL 7.5 mg PO BID 05/31/20 05/31/20 History Allergies Allergy/AdvReac Type Severity Reaction Status Date / Time galcanezumab-gnlm Allergy Swelling Verified 05/31/20 15:02 [From Emgality Pen] Iodinated Contrast Media Allergy Swelling Verified 05/31/20 15:02 milk AdvReac Mild Abdominal Verified 05/31/20 15:02 Pain banana AdvReac Nausea & Verified 05/31/20 15:02 Vomiting & Diarrhea Physical Examination - Vital Signs Vital Signs: Vital Signs Temp Pulse Pulse Pulse Resp BP BP 06/01/20 07:42 97.6 F 84 16 06/01/20 03:00 98.8 F 78 18 96/63 05/31/20 21:00 77 18 05/31/20 17:07 98.2 F 69 14 98/66 05/31/20 16:24 89 18 98/68 05/31/20 16:00 89 18 98/68 05/31/20 15:00 18 05/31/20 14:09 84 18 108/78 05/31/20 13:09 18 05/31/20 12:09 18 05/31/20 12:04 98.5 F 80 18 96/64 BP Pulse Ox 06/01/20 07:42 107/72 98 06/01/20 03:00 93 L 05/31/20 21:00 05/31/20 17:07 98 05/31/20 16:24 98 05/31/20 16:00 98 05/31/20 15:00 05/31/20 14:09 98 05/31/20 13:09 05/31/20 12:09 05/31/20 12:04 98 Intake and Output 05/31/20 06/01/20 06/01/20 22:59 06:59 14:59 Intake Total 200 250 880 Balance 200 250 880 Intake: Oral 200 250 480 Other 400 Other: Voiding Method Toilet Toilet Toilet # Voids 1 2 Weight 86.183 kg On examination patient is a middle aged female, appears somewhat stressed, in no acute distress. She is alert and awake fully oriented. Speech and language functions are normal. Attention and concentration fund of knowledge is adequate. On cranial nerve exam admission pupils are round and reactive to light, visual san are full on confrontation. Extraocular muscles are intact, nystagmus noted onto the left side. Face is symmetric, tongue protrudes to the midline. Palatal elevation and sensation normal. Hearing and shoulder shrug normal. On muscle strength testing there is no pronator drift and the strength is normal in arms and legs distally and proximally reflexes are 2+ and plantars are downgoing. No clonus. Sensory touch is equal. No ataxia for plvhpn-ou-oiob or xnot-st-wnwu testing on either sides. Tone and bulk of muscles normal. Gait deferred. There is no carotid bruit or murmur, peripheral pulses present. Chest is clear, abdomen soft nontender. Results - Laboratory Findings CBC and BMP: 06/01/20 05:44 06/01/20 05:44 Abnormal Lab Findings: Abnormal Labs 05/31/20 05/31/20 06/01/20 13:31 13:31 00:02 WBC 11.0 H Neutrophils # 8.2 H Lymphocytes # Sodium Chloride 110 H Carbon Dioxide Glucose 104 H POC Glucose (mg/dL) Urine Appearance Cloudy H Urine Protein Trace H Urine Bacteria Rare H Urine Mucus Many H 06/01/20 06/01/20 06/01/20 05:44 05:44 06:39 WBC 11.1 H Neutrophils # 9.9 H Lymphocytes # 0.7 L Sodium 136 L Chloride 110 H Carbon Dioxide 17 L Glucose 116 H POC Glucose (mg/dL) 102 H Urine Appearance Urine Protein Urine Bacteria Urine Mucus Assessment and Plan Assessment: * Acute persistent vertigo, probably due to labyrinthitis, probable left side. Patient has been having recent sinus congestion. Plan: * Suggest Medrol Dosepak * Continue Antivert. * Continue antihistamines, decongestants. * Vertigo will take another 2-4 days to clear.
[2020-06-01 16:41] LABS: Glucose,Whole Blood 144 mg/dL (75-99)
[2020-06-01] MEDS: ATORVASTATIN 40 MG TAB PO SCH (21:00)
[2020-06-01 21:05] LABS: Glucose,Whole Blood 151 mg/dL (75-99)
[2020-06-02] MEDS: DEXAMETHASONE SOD PHOSPHATE 4 MG/ML 1 ML VIAL PO SCH ×2 (05:43→12:51)
[2020-06-02] MEDS: HYDROcodone/APAP 7.5-325MG 1 EACH TAB PO PRN (05:44)
[2020-06-02 06:31] LABS: Basophils % (A) 0 %; Eosinophils % (A) 0 %; HCT 36.2 % (34.0-46.0); HGB 12.1 gm/dL (11.4-16.0); Lymphocytes # (A) 0.9 k/uL (1.0-4.8); Lymphocytes % (A) 9 %; MCH 29.6 pg (25.0-35.0); MCHC 33.5 g/dL (31.0-37.0); MCV 88.4 fL (80.0-100.0); Mean Platelet Volume 8.7; Monocytes # (A) 0.6 k/uL (0-1.0); Monocytes % (A) 6 %; Neutrophils # (A) 8.3 k/uL (1.3-7.7); Neutrophils % (A) 84 %; Platelet Count 247 k/uL (150-450); RDW 12.9 % (11.5-15.5); WBC 9.9 k/uL (3.8-10.6)
[2020-06-02 06:55] LABS: Glucose,Whole Blood 153 mg/dL (75-99)
[2020-06-02 07:02] LABS: African American GFR (CKD) >90 (>60 ml/min/1.73 sqM); Anion Gap 9 mmol/L; Blood Urea Nitrogen 9 mg/dL (7-17); Calcium 9.2 mg/dL (8.4-10.2); Carbon Dioxide 20 mmol/L (22-30); Chloride 111 mmol/L (98-107); Glucose 173 mg/dL (74-99); Non-African American GFR(CKD) >90 (>60 ml/min/1.73 sqM); Potassium 3.7 mmol/L (3.5-5.1); Sodium 140 mmol/L (137-145)
[2020-06-02] MEDS: busPIRone HCl 5 MG TAB PO SCH (08:34)
[2020-06-02] MEDS: TROSPIUM CHLORIDE 20 MG TABLET PO SCH (08:35)
[2020-06-02] MEDS: PREGABALIN 100 MG CAP PO SCH (08:35)
[2020-06-02] MEDS: MECLIZINE 12.5 MG TAB PO SCH ×2 (08:35→15:34)
[2020-06-02] MEDS: methocarbamoL 750 MG TAB PO SCH ×2 (08:35→15:34)
[2020-06-02] MEDS: PANTOPRAZOLE 40 MG TABLET PO SCH (08:35)
[2020-06-02] MEDS: OXcarbazepine 150 MG TAB PO SCH (08:35)
[2020-06-02] MEDS: TOPIRAMATE 25 MG TAB PO SCH (08:35)
[2020-06-02] MEDS: ESCITALOPRAM 20 MG TAB PO SCH (08:35)
[2020-06-02] MEDS: INSULIN ASPART (NovoLOG) 100 UNIT/ML VIAL SQ SCH ×2 (08:48→11:59)
[2020-06-02] MEDS: NON FORMULARY DRUG (Mirabegron [Myrbetriq] 25 MG) PO SCH (08:49)
[2020-06-02 09:47] VITALS: BP 107/61; PULSE 60; RESP 12; TEMP 96.8
[2020-06-02] MEDS: SODIUM CHLORIDE 0.9% 1,000 ML IV SCH (10:06)
[2020-06-02 11:27] LABS: Glucose,Whole Blood 132 mg/dL (75-99)
--- NOTE | 2020-06-15 08:24 | P.DS ---
Providers Date of admission: 05/31/20 15:28 Expected date of discharge: 06/02/20 Attending physician: Ashli Ferguson Consults: 05/31/20 15:30 Consult Physician Routine Consulting Provider: Geneva Calabrese Consult Reason/Comments: Intractable dizziness Do you want consulting provider notified?: Yes Primary care physician: [facility] Course: 40-year-old female, who states that she was fine on 05/26/2020, went to check her [employer] property. At night she was laying in the bed at 1 AM when she noticed some paresthesias over the left anterior thigh. She felt it was a bug, she got up to check on it and suddenly started feeling vertigo, and everything started spinning and she almost slumped to the left side. She sat up, but the spinning continued. The symptoms lasted all day Thursday. Whenever she was laying down, or sitting up or walking everything would spin. She required help to walk because of the vertigo. On Thursday, she was home alone, when trying to get up, she hit her top of the head on the doorframe. Did not pass out. On Thursday she was feeling better, but yesterday on , the symptoms came back, therefore she came to the ER at 11:50 AM. Her blood pressure was 96/64, pulse rate 80, temperature 98.5. Patient underwent EKG shows normal sinus rhythm. Chest x-ray showed no acute cardiopulmonary process. CT of the head showed no acute intracranial hemorrhage mass effect or midline shift. CT of the cervical spine revealed no acute fracture or dislocation evident in the cervical spine. Loss of normal cervical lordosis with postural changes and multilevel spondylosis with foraminal encroachment at C5 6 is suspected. CBC with WBC 11.0 hemoglobin 14.1, normal chem 7. Normal hepatic panel and a UA. Patient states that since Thursday, she has been having significant sinus congestion. She was taking antihistamine, antiallergic, symptoms have improved, but still persistent. Patient is on multiple psychoactive medications including Lexapro 20 mg, Trileptal 150 mg twice a day, Lyrica 200 mg twice a day, Topamax 25 mg twice a day, BuSpar 7.5 mg twice a day, methocarbamol 750 mg 3 times a day and Myrbetriq 25 mg twice a day. Patient had an MRI of brain with and without contrast on 09/19/2019 performed for headache, syncope, which revealed few scattered nonspecific white matter foci noted which remains stable as compared to previous exam. Patient had a MRA of brain without contrast on 04/26/2019 for "dizziness, headache", which revealed no aneurysmal change at the level of [place] of [place]. Patient had a normal CTA of [place] of [place] 12/01/2018. MRI of the cervical spine from 11/30/2018 showed multilevel degenerative disc disease, foraminal encroachment with no spinal stenosis. MRI of the lumbar spine from 11/30/2018 showed essentially stable degenerative disc disease. Patient had a negative CCP, Sjogren's antibodies, anti-Ferro antibodies, BIN PACKER antibody, scleroderma antibody, dsDNA and complements on 10/28/2019. RPR, HIV negative. Patient has history of cervical spinal fusion at [facility]. patient was evaluated by neurology; Acute persistent vertigo, probably due to labyrinthitis, probable left side. Patient has been having recent sinus congestion. Plan: * Suggest Medrol Dosepak * Continue Antivert. * Continue antihistamines, decongestants. * Vertigo will take another 2-4 days to clear * patient was discharged in a stable condition Patient Condition at Discharge: Good Plan - Discharge Summary New Discharge Prescriptions: New Meclizine [Antivert] 12.5 mg PO TID #14 tab Continue Omeprazole [PriLOSEC] 20 mg PO DAILY HYDROcodone/APAP 7.5-325MG [[place] 7.5-325] 1 tab PO BID PRN PRN Reason: Pain Trospium Chloride [Sanctura] 20 mg PO BID Albuterol Sulfate [Ventolin HFA] 1 - 2 puff INHALATION RT-Q6H PRN PRN Reason: Shortness Of Breath Atorvastatin [Lipitor] 40 mg PO HS Escitalopram [Lexapro] 20 mg PO DAILY OXcarbazepine [Trileptal] 150 mg PO BID Pregabalin [Lyrica] 200 mg PO BID Topiramate [Topamax] 50 mg PO BID busPIRone HCL 7.5 mg PO BID Methocarbamol [Robaxin-750] 750 mg PO TID Mirabegron [Myrbetriq] 25 mg PO BID Discharge Medication List Omeprazole [PriLOSEC] 20 mg PO DAILY 05/17/18 [History] HYDROcodone/APAP 7.5-325MG [[place] 7.5-325] 1 tab PO BID PRN 08/24/18 [History] Trospium Chloride [Sanctura] 20 mg PO BID 07/01/19 [History] Albuterol Sulfate [Ventolin HFA] 1 - 2 puff INHALATION RT-Q6H PRN 05/31/20 [History] Atorvastatin [Lipitor] 40 mg PO HS 05/31/20 [History] Escitalopram [Lexapro] 20 mg PO DAILY 05/31/20 [History] Methocarbamol [Robaxin-750] 750 mg PO TID 05/31/20 [History] Mirabegron [Myrbetriq] 25 mg PO BID 05/31/20 [History] OXcarbazepine [Trileptal] 150 mg PO BID 05/31/20 [History] Pregabalin [Lyrica] 200 mg PO BID 05/31/20 [History] Topiramate [Topamax] 50 mg PO BID 05/31/20 [History] busPIRone HCL 7.5 mg PO BID 05/31/20 [History] Meclizine [Antivert] 12.5 mg PO TID #14 tab 06/02/20 [Rx] Follow up Appointment(s)/Referral(s): Chance Valdez DO [Primary Care Provider] - 1-2 days Patient Instructions/Handouts: Dizziness (ED) Activity/Diet/Wound Care/Special Instructions: Please call primary care provider for a hospital follow up appointment. Office is currently closed. Activities limited until seen in follow up by primary. Discharge Disposition: HOME SELF-CARE
== END 2020-06-02 15:55 | disposition home or self-care (01) ==
LOC: EC 11:50 → 1SOBS 15:28
PROVIDERS: ADMIT Hospitalist; ATTEND Hospitalist
DX: R42 Dizziness and giddiness (principal); R20.2 Paresthesia of skin; D72.829 Elevated white blood cell count, unspecified; J34.89 Other specified disorders of nose and nasal sinuses; J45.990 Exercise induced bronchospasm; K21.9 Gastro-esophageal reflux disease without esophagitis; M50.30 Other cervical disc degeneration, unspecified cervical region; M51.36 Other intervertebral disc degeneration, lumbar region; M50.20 Other cervical disc displacement, unspecified cervical region; M51.26 Other intervertebral disc displacement, lumbar region; F41.9 Anxiety disorder, unspecified; F32.9 Major depressive disorder, single episode, unspecified; G43.909 Migraine, unspecified, not intractable, without status migrainosus; H55.00 Unspecified nystagmus; S33 Dislocation and sprain of joints and ligaments of lumbar spine and pelvis; Z03.818 Encounter for observation for suspected exposure to other biological agents ruled out; Z91.81 History of falling; Z98.1 Arthrodesis status; Z86.59 Personal history of other mental and behavioral disorders; Z90.89 Acquired absence of other organs; Z98.890 Other specified postprocedural states; Z79.899 Other long term (current) drug therapy; Z79.891 Long term (current) use of opiate analgesic; Z88.8 Allergy status to other drugs, medicaments and biological substances; Z91.048 Other nonmedicinal substance allergy status; Z91.011 Allergy to milk products; Z91.018 Allergy to other foods; Z90.710 Acquired absence of both cervix and uterus; Z87.448 Personal history of other diseases of urinary system; Z86.69 Personal history of other diseases of the nervous system and sense organs; Z91.89 Other specified personal risk factors, not elsewhere classified; Z82.49 Family history of ischemic heart disease and other diseases of the circulatory system; Z82.3 Family history of stroke; X58.XXXD Exposure to other specified factors, subsequent encounter
CPT/HCPCS: 96375 ×3; 96376 ×2; 96374; 99285; 36415; 93005; 80053; 80048 ×2; 85025 ×3; 81001; 71045; 72125; 70450; G0378 ×3; U0003; J1200; J1100 ×3; J3360; J2405; J1170 ×2

== ENCOUNTER → 2020-06-25 | Outpatient (CLI) | payer OTHER ==
--- NOTE | 2020-06-27 12:24 | P.ARTDOP ---
Arterial Doppler LOWER EXTREMITY ARTERIAL DOPPLER: DATE OF SERVICE: 06/25/2020 Reason for study: Color changes both legs with sitting. Doppler waveforms: Multiphasic throughout. Pulse volume recording: []. Pressure gradients: None. Ankle-brachial indices: Greater than 1 bilaterally. Toe brachial indices: 0.8 on the right, 0.91 on the left Impression: Normal study.
== END | disposition home or self-care (01) ==
LOC: RADUSWWP 13:34
PROVIDERS: ATTEND Psychiatry & Neurology Neurology
DX: R23.8 Other skin changes (principal)
CPT/HCPCS: 93922

== ENCOUNTER 2020-09-03 09:57 | Day surgery (SDC) | payer OTHER ==
[2020-08-31 11:51] VITALS: BMI 31.3
[~2020-09-03 09:57] MED LIST changes: +LACTATED RINGERS 1,000 ML IV SCH; -SODIUM CHLORIDE 0.9% 1,000 ML IV SCH
[2020-09-03 10:32] VITALS: RESP 16; TEMP 98
[2020-09-03] MEDS ORDERED: LIDOCAINE 1% (10MG/ML) FOR IV START INTRADERMA ONE (10:45)
[2020-09-03] MEDS ORDERED: PROPOFOL 10 MG/ML 20 ML VIAL IV ONE (11:30)
--- NOTE | 2020-09-03 11:48 | P.PCN ---
Date of Procedure: 09/03/20 Procedure(s) Performed: BRIEF HISTORY: Patient is a 40-year-old pleasant white female scheduled for an elective colonoscopy as a part of right lower quadrant abdominal pain and intermittent rectal bleeding and chronic constipation of several years duration. PROCEDURE PERFORMED: Colonoscopy. PREOPERATIVE DIAGNOSIS: Right lower quadrant abdominal pain/chronic constipation and rectal bleeding. IV sedation per Anesthesia. PROCEDURE: After informed consent was obtained, the patient, was brought into [facility] endoscopy unit. IV sedation was administered by Anesthesia under continuous monitoring. Digital rectal examination was normal. Initially the Olympus CF-160 flexible video colonoscope was then inserted in the rectum, gradually advanced into the cecum without any difficulty. Careful examination was performed as the scope was gradually being withdrawn. Ileocecal valve and the appendiceal orifice were visualized and appeared normal. Prep was excellent. Mucosa of the cecum, ascending colon, transverse colon, descending colon, sigmoid colon, and rectum appeared normal. Retroflexion was performed in the rectum and no lesions were seen. The patient tolerated the procedure well. IMPRESSION: Normal-appearing colon from rectum to cecum with no evidence of colitis or colorectal neoplasia. RECOMMENDATIONS: Findings of this examination were discussed with the patient as well as her family. She was advised to be a high-fiber diet and take fiber supplements as well as osmotic laxatives on a regular basis.. She can have a repeat screening colonoscopy at age 49.
[2020-09-03 12:07] VITALS: BP 122/73; PULSE 72
== END 2020-09-03 12:42 | disposition home or self-care (01) ==
LOC: ORWHC2ENDO 09:57
PROVIDERS: ATTEND Internal Medicine Gastroenterology
DX: R10.31 Right lower quadrant pain (principal); K59.09 Other constipation; K92.1 Melena; E78.5 Hyperlipidemia, unspecified; J45.909 Unspecified asthma, uncomplicated; M53.82 Other specified dorsopathies, cervical region; F32.9 Major depressive disorder, single episode, unspecified; K21.9 Gastro-esophageal reflux disease without esophagitis; Z79.82 Long term (current) use of aspirin; Z79.899 Other long term (current) drug therapy; Z90.89 Acquired absence of other organs; Z98.890 Other specified postprocedural states; Z90.710 Acquired absence of both cervix and uterus; Z91.041 Radiographic dye allergy status; Z88.8 Allergy status to other drugs, medicaments and biological substances; Z91.048 Other nonmedicinal substance allergy status
CPT/HCPCS: 45378; J2704

== ENCOUNTER → 2020-09-20 | Outpatient (CLI) | payer OTHER | END | disposition home or self-care (01) | LOC: LABWHC1 13:40 | PROVIDERS: ATTEND Nurse Practitioner Family | DX: Z20.828 Contact with and (suspected) exposure to other viral communicable diseases (principal); R51.9 Headache, unspecified; R06.02 Shortness of breath | CPT/HCPCS: U0003; C9803 ==

== ENCOUNTER → 2021-03-25 | Outpatient (CLI) | payer OTHER ==
[2021-03-25 19:24] LABS: HCT 39.8 % (37.2-46.3); HGB 12.4 g/dL (12.0-15.0); MCH 29.2 pg (27.0-32.0); MCHC 31.2 g/dL (32.0-37.0); MCV 93.6 fL (80.0-97.0); Mean Platelet Volume 10.6 fL (9.5-12.2); Platelet Count 304 X 10*3/uL (140-440); RBC 4.25 X 10*6/uL (4.10-5.20); RDW 14.6 % (11.5-14.5); WBC 8.93 X 10*3/uL (4.50-10.00)
[2021-03-25 21:18] LABS: % Iron Saturation 24.34 (12.00-45.00); African American GFR (CKD) 105.4 (60.0-200.0); Albumin 4.4 g/dL (3.80-4.90); Albumin/Globulin Ratio 2.32 (1.60-3.17); BUN/Creat Ratio 11.25 Ratio (12.00-20.00); Calcium 9.4 mg/dL (8.7-10.3); Chol/HDL Ratio 3.75; Globulin 1.9 g/dL (1.6-3.3); LDL Cholesterol,Calculated 106.2 mg/dL (0.0-131.0); Non-African American GFR(CKD) 90.9 (60.0-200.0); Potassium 4.8 mmol/L (3.5-5.5); Total Bilirubin 0.5 mg/dL (0.3-1.2); Total Protein 6.3 g/dL (6.2-8.2); VLDL Calculation 33.8 mg/dL (5.00-40.00)
[2021-03-25 21:27] LABS: T4, Free (Free Thyroxine) 0.9 ng/dL (0.80-1.80)
[2021-03-25 21:34] LABS: Folate, Serum 14.1 ng/mL
[2021-03-25 21:57] LABS: Hemoglobin A1C 5.6 % (4.0-6.0)
[2021-03-25 22:53] LABS: Cat Epith & Dander IgE <0.10 kU/L; Dog Dander IgE <0.10 kU/L
[2021-03-25 22:54] LABS: Aspergillus fumagatus IgE <0.10 kU/L; Cladosporian herbarum IgE <0.10 kU/L; Cockroach IgE <0.10 kU/L
[2021-03-25 22:55] LABS: Alternaria alternata IgE <0.10 kU/L; Birch IgE <0.10 kU/L; Maple (Box Elder) IgE 0.21 kU/L
[2021-03-25 22:56] LABS: Elm IgE <0.10 kU/L; Oak IgE <0.10 kU/L
[2021-03-25 22:58] LABS: Ragweed,Common IgE <0.10 kU/L
[2021-03-25 23:58] LABS: Dermato. farinae IgE 0.18 kU/L
[2021-03-25 23:59] LABS: Red Top (Bentgrass) IgE <0.10 kU/L
[2021-03-26 02:22] LABS: Clam IgE <0.10 kU/L; Scallop IgE <0.10 kU/L; Walnut IgE (Food) <0.10 kU/L
[2021-03-26 02:23] LABS: Peanut IgE <0.10 kU/L; Shrimp IgE <0.10 kU/L; Soybean IgE <0.10 kU/L
[2021-03-26 02:27] LABS: Codfish IgE <0.10 kU/L
[2021-03-26 02:28] LABS: Egg White IgE <0.10 kU/L
== END | disposition home or self-care (01) ==
LOC: LABWHC1 11:59
PROVIDERS: ATTEND Nurse Practitioner Family
DX: E78.2 Mixed hyperlipidemia (principal); R06.2 Wheezing; R63.5 Abnormal weight gain; R53.83 Other fatigue
CPT/HCPCS: 36415; 80053; 80061; 82306; 82607; 82746; 82785; 83036; 83540; 83550; 84439; 84443; 85027; 86003

== ENCOUNTER 2021-04-11 14:48 | Emergency (ER) | payer OTHER ==
[2021-04-11 15:01] VITALS: RESP 18
[2021-04-11] MEDS ORDERED: SODIUM CHLORIDE 0.9% 1,000 ML IV STA (15:46)
[2021-04-11] MEDS ORDERED: ONDANSETRON 4 MG/2 ML VIAL IVP STA (15:46)
--- NOTE | 2021-04-11 15:53 | ED ---
General Adult HPI - General Chief complaint: Urogenital Stated complaint: Recheck Time Seen by Provider: 04/11/21 15:32 Source: patient, family (Spouse), RN notes reviewed Mode of arrival: wheelchair Limitations: no limitations - History of Present Illness Initial comments: 41-year-old well-appearing white female, alert and oriented 4, presents with he r with complaints of 9 days of abdominal pain and constipation. Patient states that she has a history of hysterectomy with rectocele and cystocele surgery 2017. HEENT states takes [place] 7.5 daily for degenerative joint disease and sees Dr. Valdez, also has a pain contract. Patient states that she called Dr. Gómez who did her surgery in the past and was not able to get an appointment until the . Patient states that her abdominal pain is worse is not having good bowel movements is concern for an obstruction. Patient states that this also feels like her rectocele in the past and feels as though she needs to have a bowel movement but the stool is redirected out her vagina. Patient denies any hematochezia or hematemesis. Patient denies any fevers. -: days(s) (9) Location: abdomen Radiation: back Severity scale (1-10): 4 Quality: aching, other Consistency: intermittent (Cramping) Improves with: none, medication ([place]ide 7.5) Associated Symptoms: nausea/vomiting (No vomiting) Treatments Prior to Arrival: other ([place]ide 7.5 this morning) - Related Data Home Medications Medication Instructions Recorded Confirmed Omeprazole [PriLOSEC] 20 mg PO HS 05/17/18 04/11/21 HYDROcodone/APAP 7.5-325MG [[place] 1 tab PO TID PRN 08/24/18 04/11/21 7.5-325] Trospium Chloride [Sanctura] 20 mg PO BID 07/01/19 04/11/21 Albuterol Sulfate [Ventolin HFA] 1 - 2 puff INHALATION RT-Q6H PRN 05/31/20 04/11/21 Atorvastatin [Lipitor] 40 mg PO HS 05/31/20 04/11/21 Escitalopram [Lexapro] 20 mg PO DAILY 05/31/20 04/11/21 OXcarbazepine [Trileptal] 150 mg PO BID 05/31/20 04/11/21 Pregabalin [Lyrica] 200 mg PO BID 05/31/20 04/11/21 Topiramate [Topamax] See Taper PO DIRECTED 05/31/20 04/11/21 Aspirin 81 mg PO DAILY 09/03/20 04/11/21 Bio Shamika 1 tab PO BID 04/11/21 04/11/21 Bran 1 tab PO DAILY 04/11/21 04/11/21 Cholecalciferol (Vitamin D3) 125 mcg PO DAILY 04/11/21 04/11/21 [Vitamin D3 (5000 Iu)] Docusate [Colace] 100 mg PO DAILY 04/11/21 04/11/21 Magnesium Gluconate [Magonate] 500 mg PO DAILY 04/11/21 04/11/21 Meclizine [Antivert] 25 mg PO TID 04/11/21 04/11/21 Mirabegron [Myrbetriq] 50 mg PO HS 04/11/21 04/11/21 Montelukast [Singulair] 10 mg PO DAILY 04/11/21 04/11/21 Multivitamins, Thera [Multivitamin 1 tab PO DAILY 04/11/21 04/11/21 (formulary)] Naloxegol Oxalate [Movantik] 25 mg PO HS 04/11/21 04/11/21 Orphenadrine [Norflex] 100 mg PO Q12H PRN 04/11/21 04/11/21 Zlem 1 tab PO DAILY 04/11/21 04/11/21 Allergies Allergy/AdvReac Type Severity Reaction Status Date / Time galcanezumab-gnlm Allergy Swelling Verified 04/11/21 17:15 [From Emgality Pen] Iodinated Contrast Media Allergy Swelling Verified 04/11/21 17:15 milk AdvReac Mild Abdominal Verified 04/11/21 17:15 Pain banana AdvReac Nausea & Verified 04/11/21 17:15 Vomiting & Diarrhea Review of Systems ROS Statement: Those systems with pertinent positive or pertinent negative responses have been documented in the HPI. ROS Other: All systems not noted in ROS Statement are negative. Past Medical History Past Medical History: Asthma, GERD/Reflux, Musculoskeletal Disorder, Syncope Additional Past Medical History / Comment(s): Degenerative disc disease, herniated discs in cervical and lumbar spine, signs of arthritis, migraine headaches. History of eating disorder. GERD resolved at this time. Exercise induced asthma. Hx. separation of pelvis, has difficulty getting to standing position from sitting/lying. Rectal bleeding History of Any Multi-Drug Resistant Organisms: None Reported Past Surgical History: Adenoidectomy, Bladder Surgery, Hysterectomy, Orthopedic Surgery, Tonsillectomy Additional Past Surgical History / Comment(s): Laparoscopy, EP Study, Endoscopy, D&C, rectocele and cystocele repair, bladder mesh, urethral sling, carpal tunnel surgery bilateral wrists, 2 ganglion cyts right hand middle digit removed. cervical fusion Past Anesthesia/Blood Transfusion Reactions: Previous Problems w/ Anesthesia Additional Past Anesthesia/Blood Transfusion Reaction / Comment(s): Woke up during endoscopy procedure one time. Past Psychological History: Anxiety, Depression Smoking Status: Never smoker Past Alcohol Use History: None Reported Past Drug Use History: None Reported - Past Family History Mother Family Medical History: Hypertension Father Family Medical History: CVA/TIA, Myocardial Infarction ([place]) General Exam Limitations: no limitations General appearance: alert, in no apparent distress Head exam: Present: atraumatic, normocephalic, normal inspection Eye exam: Present: normal appearance, PERRL, EOMI. Absent: scleral icterus, conjunctival injection, periorbital swelling Pupils: Present: normal accommodation ENT exam: Present: normal exam, normal oropharynx, mucous membranes moist Neck exam: Present: normal inspection, full ROM. Absent: tenderness, meningismus, lymphadenopathy, thyromegaly Respiratory exam: Present: normal lung sounds bilaterally. Absent: respiratory distress, wheezes, rales, rhonchi, stridor, chest wall tenderness, accessory muscle use, decreased breath sounds, prolonged expiratory Cardiovascular Exam: Present: tachycardia, normal heart sounds. Absent: JVD GI/Abdominal exam: Present: soft, tenderness, hypoactive bowel sounds. Absent: distended, guarding, rebound, rigid, mass, pulsatile mass, hernia Rectal exam: Present: normal inspection, normal rectal tone, other (No gross blood). Absent: fecal impaction, hemorrhoids, mass External exam: Present: normal external exam. Absent: erythema, swelling, lesions, lacerations, ecchymosis By manual exam: Present: normal by manual exam. Absent: cervical motion tenderness, adnexal tenderness, adnexal mass, uterine enlargement, uterine tenderness Extremities exam: Present: normal inspection, full ROM, normal capillary refill. Absent: tenderness, pedal edema, joint swelling, calf tenderness Back exam: Present: normal inspection, full ROM. Absent: tenderness, CVA tenderness (R), CVA tenderness (L) Neurological exam: Present: alert, oriented X3, CN II-XII intact Psychiatric exam: Present: normal affect, normal mood Skin exam: Present: warm, dry, intact, normal color. Absent: rash, diaphoretic, erythema, petechiae, pallor, mottled Course Vital Signs 04/11/21 04/11/21 04/11/21 14:55 16:45 18:24 Temperature 97.9 F 97.6 F Pulse Rate 105 H 98 98 Respiratory 18 18 18 Rate Blood Pressure 110/70 119/81 120/80 O2 Sat by Pulse 94 L 96 97 Oximetry Medical Decision Making - Medical Decision Making xr shows no bowel obstruction or pneumoperitoneum, possible enteritis. CT abdomen and pelvis shows no cysts, no masses, no renal stones. There is fecal debris within the colon. There is no obstruction, no abnormalities noted. WBC count is 12.8, lactic acid is 2.1 which patient received 1 L of normal saline. Hemoglobin and hematocrit stable at 13 and 41 respectively. Amylase elevated at 197. Patient is well-appearing. No nausea, vomiting, diarrhea in the emergency room. Guaiac is negative for gross blood. abdomen is soft. Patient takes [place] 7.5 daily for chronic pain which is likely causing her constipation problems and abdominal pain. Patient has had this abdominal pain since 2017 and been seen multiple times. Patient has an appointment on April [address] Gómez. Has seen Dr. Nur in the past for colonoscopy which she had this year 2020, patient also had an MRI in 2020. Case discussed with Dr. Gonzalez discharge patient home to continue follow-up with primary care and follow-up with Dr. Nur for continued GI problems - Lab Data Result diagrams: 04/11/21 15:59 04/11/21 15:59 Lab Results 04/11/21 04/11/21 04/11/21 Range/Units 15:59 15:59 15:59 WBC 12.8 H (3.8-10.6) k/uL RBC 4.72 (3.80-5.40) m/uL Hgb 13.6 (11.4-16.0) gm/dL Hct 41.7 (34.0-46.0) % MCV 88.3 (80.0-100.0) fL MCH 28.8 (25.0-35.0) pg MCHC 32.6 (31.0-37.0) g/dL RDW 14.5 (11.5-15.5) % Plt Count 311 (150-450) k/uL MPV 7.9 Neutrophils % 73 % Lymphocytes % 18 % Monocytes % 5 % Eosinophils % 3 % Basophils % 0 % Neutrophils # 9.4 H (1.3-7.7) k/uL Lymphocytes # 2.3 (1.0-4.8) k/uL Monocytes # 0.7 (0-1.0) k/uL Eosinophils # 0.4 (0-0.7) k/uL Basophils # 0.0 (0-0.2) k/uL PT 9.5 (9.0-12.0) sec INR 0.9 (<1.2) APTT 19.5 L (22.0-30.0) sec Sodium (137-145) mmol/L Potassium (3.5-5.1) mmol/L Chloride (98-107) mmol/L Carbon Dioxide (22-30) mmol/L Anion Gap mmol/L BUN (7-17) mg/dL Creatinine (0.52-1.04) mg/dL Est GFR (CKD-EPI)AfAm (>60 ml/min/1.73 sqM) Est GFR (CKD-EPI)NonAf (>60 ml/min/1.73 sqM) Glucose (74-99) mg/dL Lactic Ac Sepsis Rflx Plasma Lactic Acid Reyes (0.7-2.0) mmol/L Calcium (8.4-10.2) mg/dL Total Bilirubin (0.2-1.3) mg/dL AST (14-36) U/L ALT (4-34) U/L Alkaline Phosphatase (38-126) U/L Total Protein (6.3-8.2) g/dL Albumin (3.5-5.0) g/dL Amylase (30-110) U/L Lipase (23-300) U/L Urine Color Yellow Urine Appearance Clear (Clear) Urine pH 6.0 (5.0-8.0) Ur Specific [place] 1.028 (1.001-1.035) Urine Protein Trace H (Negative) Urine Glucose (UA) Negative (Negative) Urine Ketones Negative (Negative) Urine Blood Negative (Negative) Urine Nitrite Negative (Negative) Urine Bilirubin Negative (Negative) Urine Urobilinogen <2.0 (<2.0) mg/dL Ur Leukocyte Esterase Negative (Negative) 04/11/21 04/11/21 04/11/21 Range/Units 15:59 15:59 16:28 WBC (3.8-10.6) k/uL RBC (3.80-5.40) m/uL Hgb (11.4-16.0) gm/dL Hct (34.0-46.0) % MCV (80.0-100.0) fL MCH (25.0-35.0) pg MCHC (31.0-37.0) g/dL RDW (11.5-15.5) % Plt Count (150-450) k/uL MPV Neutrophils % % Lymphocytes % % Monocytes % % Eosinophils % % Basophils % % Neutrophils # (1.3-7.7) k/uL Lymphocytes # (1.0-4.8) k/uL Monocytes # (0-1.0) k/uL Eosinophils # (0-0.7) k/uL Basophils # (0-0.2) k/uL PT (9.0-12.0) sec INR (<1.2) APTT (22.0-30.0) sec Sodium 141 (137-145) mmol/L Potassium 4.1 (3.5-5.1) mmol/L Chloride 110 H (98-107) mmol/L Carbon Dioxide 20 L (22-30) mmol/L Anion Gap 11 mmol/L BUN 12 (7-17) mg/dL Creatinine 0.83 (0.52-1.04) mg/dL Est GFR (CKD-EPI)AfAm >90 (>60 ml/min/1.73 sqM) Est GFR (CKD-EPI)NonAf 88 (>60 ml/min/1.73 sqM) Glucose 112 H (74-99) mg/dL Lactic Ac Sepsis Rflx Y Plasma Lactic Acid Reyes 2.1 H* (0.7-2.0) mmol/L Calcium 9.6 (8.4-10.2) mg/dL Total Bilirubin 0.2 (0.2-1.3) mg/dL AST 27 (14-36) U/L ALT 17 (4-34) U/L Alkaline Phosphatase 86 (38-126) U/L Total Protein 6.7 (6.3-8.2) g/dL Albumin 4.2 (3.5-5.0) g/dL Amylase 197 H (30-110) U/L Lipase 129 (23-300) U/L Urine Color Urine Appearance (Clear) Urine pH (5.0-8.0) Ur Specific [place] (1.001-1.035) Urine Protein (Negative) Urine Glucose (UA) (Negative) Urine Ketones (Negative) Urine Blood (Negative) Urine Nitrite (Negative) Urine Bilirubin (Negative) Urine Urobilinogen (<2.0) mg/dL Ur Leukocyte Esterase (Negative) Disposition Clinical Impression: Chronic abdominal pain Clinical Impression: (Ruled Out): Abdominal pain Disposition: HOME SELF-CARE Condition: Fair Instructions (If sedation given, give patient instructions): Abdominal Pain ( ED) Is patient prescribed a controlled substance at d/c from ED?: No Referrals: Chance Valdez DO [Primary Care Provider] - 1-2 days Qi Yin MD [STAFF PHYSICIAN] - 1-2 days Time of Disposition: 19:13
[2021-04-11 16:15] LABS: Basophils % (A) 0 %; Eosinophils # (A) 0.4 k/uL (0-0.7); Eosinophils % (A) 3 %; HCT 41.7 % (34.0-46.0); HGB 13.6 gm/dL (11.4-16.0); Lymphocytes # (A) 2.3 k/uL (1.0-4.8); Lymphocytes % (A) 18 %; MCH 28.8 pg (25.0-35.0); MCHC 32.6 g/dL (31.0-37.0); MCV 88.3 fL (80.0-100.0); Mean Platelet Volume 7.9; Monocytes # (A) 0.7 k/uL (0-1.0); Monocytes % (A) 5 %; Neutrophils # (A) 9.4 k/uL (1.3-7.7); Neutrophils % (A) 73 %; Platelet Count 311 k/uL (150-450); RBC 4.72 m/uL (3.80-5.40); RDW 14.5 % (11.5-15.5); WBC 12.8 k/uL (3.8-10.6)
[2021-04-11 16:25] LABS: ALT 17 U/L (4-34); AST 27 U/L (14-36); African American GFR (CKD) >90 (>60 ml/min/1.73 sqM); Albumin 4.2 g/dL (3.5-5.0); Alkaline Phosphatase 86 U/L (38-126); Amylase 197 U/L (30-110); Anion Gap 11 mmol/L; Blood Urea Nitrogen 12 mg/dL (7-17); Calcium 9.6 mg/dL (8.4-10.2); Carbon Dioxide 20 mmol/L (22-30); Chloride 110 mmol/L (98-107); Glucose 112 mg/dL (74-99); Lipase 129 U/L (23-300); Non-African American GFR(CKD) 88 (>60 ml/min/1.73 sqM); Potassium 4.1 mmol/L (3.5-5.1); Sodium 141 mmol/L (137-145); Total Bilirubin 0.2 mg/dL (0.2-1.3); Total Protein 6.7 g/dL (6.3-8.2)
--- NOTE | 2021-04-11 16:35 | CT ---
EXAMINATION TYPE: CT abdomen pelvis wo con DATE OF EXAM: 04/11/2021 COMPARISON: 04/08/2013 INDICATION: Pelvic pain, history of uterine prolapse and repair. DLP: 1088.4 mGycm, Automated exposure control for dose reduction was used. CONTRAST: 0 mL of Isovue 300. Study performed without Oral Contrast TECHNIQUE: Axial images were obtained from above the diaphragm to the pubic rami in the axial plane a t 5 mm thick sections. Reconstructed images are reviewed on the computer in the coronal plane. FINDINGS: Limited CT sections are obtained the lung bases. The lung bases are clear. CT ABDOMEN: Liver: Normal Spleen: Normal Pancreas: Normal Adrenal glands: The adrenal glands are normal. Gallbladder: Normal Kidneys: No masses are evident. No hydronephrosis is present. No cysts are present. No renal stone s are evident. Aorta: Normal Inferior vena cava: Normal. CT PELVIS: Fecal debris is within the colon. Studies lateral contrast limiting bowel evaluation. Appendix: Not identified. Urinary bladder: Normal. Genitourinary structures: Previous large uterus is not evident. Findings appear suggestive for prior hysterectomy. This could be a partial hysterectomy, correlate with patient history. Right adnexal reg ion appears normal. Left adnexal region is normal. Osseous structures: No suspicious lytic or sclerotic lesions. IMPRESSIONS: 1. No suspicious abnormalities to account for pelvic pain.
[2021-04-11 16:38] LABS: INR 0.9 (<1.2); Prothrombin Time 9.5 sec (9.0-12.0)
--- NOTE | 2021-04-11 16:39 | XR ---
KUB HISTORY: Abdominal pain Frontal KUB submitted on [address] to CT scan dated same day There is no evidence of bowel obstruction or pneumoperitoneum. No pathologic calcification is seen. T here is overlying artifact. Lung bases are clear. There are air fluid levels without bowel distention . IMPRESSION: Correlate for enteritis, follow-up as indicated.
[2021-04-11 16:47] VITALS: PULSE 98; TEMP 97.6
[2021-04-11 16:48] LABS: Partial Thromboplastin Time 19.5 sec (22.0-30.0)
[2021-04-11 18:25] VITALS: BP 120/80
[2021-04-11 18:31] LABS: Appearance,Urine Clear (Clear); Bilirubin,Urine Negative (Negative); Blood,Urine Negative (Negative); Color,Urine Yellow; Glucose,Urine (UA) Negative (Negative); Ketones,Urine Negative (Negative); Leukocyte Esterase,Urine Negative (Negative); Nitrite,Urine Negative (Negative); Protein,Urine Trace (Negative); Specific Gravity,Urine 1.028 (1.001-1.035); Urobilinogen,Urine <2.0 mg/dL (<2.0)
== END 2021-04-11 20:10 | disposition home or self-care (01) ==
LOC: EC 14:48
DX: R10.9 Unspecified abdominal pain (principal); J45.909 Unspecified asthma, uncomplicated; K21.9 Gastro-esophageal reflux disease without esophagitis; G43.909 Migraine, unspecified, not intractable, without status migrainosus; F32.9 Major depressive disorder, single episode, unspecified; Z90.710 Acquired absence of both cervix and uterus; Z90.09 Acquired absence of other part of head and neck; Z79.82 Long term (current) use of aspirin
CPT/HCPCS: 36415; 80053; 82150; 83605; 83690; 85025; 85610; 85730; 82272; 81003; 74018; 74176; 99284; 96374; 96361; J2405

== ENCOUNTER → 2021-06-06 | Outpatient (CLI) | payer OTHER ==
[2021-06-06 15:17] LABS: Basophils % (A) 0 %; Eosinophils # (A) 0.2 k/uL (0-0.7); Eosinophils % (A) 2 %; HCT 42.1 % (34.0-46.0); HGB 14.1 gm/dL (11.4-16.0); Lymphocytes # (A) 2.5 k/uL (1.0-4.8); Lymphocytes % (A) 24 %; MCH 30.3 pg (25.0-35.0); MCHC 33.4 g/dL (31.0-37.0); MCV 90.6 fL (80.0-100.0); Mean Platelet Volume 8.1; Monocytes # (A) 0.4 k/uL (0-1.0); Monocytes % (A) 4 %; Neutrophils # (A) 7.2 k/uL (1.3-7.7); Neutrophils % (A) 69 %; Platelet Count 305 k/uL (150-450); RBC 4.65 m/uL (3.80-5.40); RDW 13.4 % (11.5-15.5); WBC 10.5 k/uL (3.8-10.6)
[2021-06-06 15:25] LABS: African American GFR (CKD) >90 (>60 ml/min/1.73 sqM); Anion Gap 13 mmol/L; Blood Urea Nitrogen 8 mg/dL (7-17); Calcium 9.9 mg/dL (8.4-10.2); Carbon Dioxide 20 mmol/L (22-30); Chloride 110 mmol/L (98-107); Glucose 128 mg/dL (74-99); Non-African American GFR(CKD) >90 (>60 ml/min/1.73 sqM); Sodium 143 mmol/L (137-145)
== END | disposition home or self-care (01) ==
LOC: LABPAT 14:47
PROVIDERS: ATTEND Obstetrics & Gynecology
DX: Z01.812 Encounter for preprocedural laboratory examination (principal)
CPT/HCPCS: 36415; 80048; 85025

== ENCOUNTER 2021-06-11 05:47 | Observation (INO) | payer OTHER ==
[2021-06-10 09:20] VITALS: BMI 34.4
--- NOTE | 2021-06-10 19:31 | P.HPOB ---
History of Present Illness H&P Date: 06/10/21 Chief Complaint: Symptomatic rectocele This is a 41 y.o. female, 4, para 3, who presents for posterior vaginal repair due to symptomatic rectocele. She underwent a total vaginal hysterectomy with anterior and posterior repar and transobturator sling in 2018. She hasn't been able to have intercourse since then due to dysparunia. For about 3 weeks prior to her appointment, she has been experiencing worsening perineal pain. She also has constipation with up to 1-2 weeks without a bowel movement. She has to manually evacuate her bowels by pressing in her vagina to go. She is on narcotic pain medication prescribed through her pain specialist for SI joint inf lammation and degenerative disc disease. OB Hx: . History of 3 vaginal deliveries and 1 miscarriage. 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 Self-employed working from home. Review of Systems Constitutional: Reports fatigue, Reports night sweats, Reports weight gain, Denies chills, Denies fever Eyes: denies blurred vision, denies pain Ears, nose, mouth and throat: Reports headache, Denies sore throat Cardiovascular: Denies chest pain, Denies shortness of breath Respiratory: Denies cough Gastrointestinal: Reports change in bowel habits, Reports constipation, Denies abdominal pain, Denies diarrhea, Denies nausea, Denies vomiting Genitourinary: Reports dyspareunia, Reports pelvic pain, Reports prolapse symptoms, Reports stress incontinence (due to unable to get to bathroom due to mobility issues.) Musculoskeletal: Reports low back pain, Reports myalgias (pelvic) Integumentary: Denies pruritus, Denies rash Neurological: Reports headaches, Reports weakness Psychiatric: Denies anxiety, Denies depression Endocrine: Reports flushing Past Medical History Past Medical History: Asthma, Fibromyalgia, GERD/Reflux, Musculoskeletal Disorder, Syncope Additional Past Medical History / Comment(s): Degenerative disc disease, herniated discs in cervical and lumbar spine, signs of arthritis, migraine headaches. History of eating disorder. Exercise induced asthma. Hx. separation of pelvis, has difficulty getting to standing position from sitting/lying. History of Any Multi-Drug Resistant Organisms: None Reported Past Surgical History: Adenoidectomy, Bladder Surgery, Hysterectomy, Orthopedic Surgery, Tonsillectomy Additional Past Surgical History / Comment(s): Laparoscopy, EP Study, Endoscopy, D&C, TV[facility] rectocele and cystocele repair, urethral sling, carpal tunnel surgery bilateral wrists, 2 ganglion cyts right hand middle digit removed. cervical fusion Past Anesthesia/Blood Transfusion Reactions: Previous Problems w/ Anesthesia Additional Past Anesthesia/Blood Transfusion Reaction / Comment(s): Woke up during endoscopy procedure one time. Past Psychological History: No Psychological Hx Reported Smoking Status: Never smoker Past Alcohol Use History: None Reported Past Drug Use History: None Reported - Past Family History Mother Family Medical History: Hypertension Father Family Medical History: CVA/TIA, Myocardial Infarction ([place]) Medications and Allergies Home Medications Medication Instructions Recorded Confirmed Type Omeprazole [PriLOSEC] 20 mg PO HS 05/17/18 06/11/21 History HYDROcodone/APAP 7.5-325MG [[place] 1 tab PO TID PRN 08/24/18 06/11/21 History 7.5-325] Trospium Chloride [Sanctura] 20 mg PO BID 07/01/19 06/11/21 History Albuterol Sulfate [Ventolin HFA] 1 - 2 puff INHALATION RT-Q6H PRN 05/31/20 06/11/21 History Atorvastatin [Lipitor] 40 mg PO HS 05/31/20 06/11/21 History Escitalopram [Lexapro] 20 mg PO DAILY 05/31/20 06/11/21 History OXcarbazepine [Trileptal] 150 mg PO BID 05/31/20 06/11/21 History Pregabalin [Lyrica] 200 mg PO BID 05/31/20 06/11/21 History Topiramate [Topamax] 50 mg PO BID 05/31/20 06/11/21 History Aspirin 81 mg PO DAILY 09/03/20 06/11/21 History Bio Shamika 1 tab PO BID 04/11/21 06/11/21 History Bran 1 tab PO DAILY 04/11/21 06/11/21 History Cholecalciferol (Vitamin D3) 125 mcg PO DAILY 04/11/21 06/11/21 History [Vitamin D3 (5000 Iu)] Docusate [Colace] 100 mg PO DAILY 04/11/21 06/11/21 History Magnesium Gluconate [Magonate] 500 mg PO DAILY 04/11/21 06/11/21 History Meclizine [Antivert] 25 mg PO TID 04/11/21 06/11/21 History Mirabegron [Myrbetriq] 50 mg PO HS 04/11/21 06/11/21 History Montelukast [Singulair] 10 mg PO DAILY 04/11/21 06/11/21 History Multivitamins, Thera [Multivitamin 1 tab PO DAILY 04/11/21 06/11/21 History (formulary)] Orphenadrine [Norflex] 100 mg PO Q12H PRN 04/11/21 06/11/21 History Zlem 1 tab PO DAILY 04/11/21 06/11/21 History Linaclotide [Linzess] 72 mcg PO DAILY 06/10/21 06/11/21 History Allergies Allergy/AdvReac Type Severity Reaction Status Date / Time galcanezumab-gnlm Allergy Anaphylaxis Verified 06/11/21 06:12 [From Emgality Pen] Iodinated Contrast Media Allergy Anaphylaxis Verified 06/11/21 06:12 Exam Osteopathic Statement: *. No significant issues noted on an osteopathic structural exam other than those noted in the History and Physical/Consult. Intake and Output 06/10/21 06/10/21 06/10/21 06:59 14:59 22:59 Other: Weight 99.79 kg HEENT: within normal limits Heart: regular rate and rhythm Lungs: clear to auscultation bilaterally Abdomen: soft, non-tender Pelvic: 2nd degree rectocele noted in lower vagina. No adnexal masses or tenderness. Extremities: negative Consuelo's Assessment and Plan (1) Rectocele Current Visit: No Status: Acute Code(s): N81.6 - RECTOCELE SNOMED Code(s): 1245264 Plan: Proceed with posterior vaginal colporrhaphy. I have discussed the risks, benefits, and alternative therapies for the above- mentioned procedure and for both sedation/anesthesia as well as necessary blood products administration, if indicated, as they pertain to this patient. The patient has indicated her understanding and acceptance of the risks and procedures discussed.
[~2021-06-11 05:47] MED LIST changes: +DEXAMETHASONE SOD PHOSPHATE 4 MG/ML 1 ML VIAL IV ONE; -LACTATED RINGERS 1,000 ML IV SCH; +LIDOCAINE 1% (10MG/ML) FOR IV START INTRADERMA PRN; +MIDAZOLAM 2 MG/2 ML VIAL IV PRN; +ONDANSETRON 4 MG/2 ML VIAL IVP ONE
[2021-06-11] MEDS: LACTATED RINGERS 1,000 ML IV SCH (06:11)
[2021-06-11] MEDS ORDERED: MIDAZOLAM 2 MG/2 ML VIAL IVP ONE (06:49)
[2021-06-11] MEDS ORDERED: fentaNYL (PF) 50 MCG/ML 2 ML AMP IVP ONE (06:50)
[2021-06-11] MEDS ORDERED: SCOPOLAMINE 1.5MG/72HR PATCH TRANSDERM ONE (06:59)
[2021-06-11] MEDS ORDERED: HYDROmorphone 0.5 MG/0.5 ML SYRINGE IVP PRN ×2 (07:00→07:05)
[2021-06-11] MEDS ORDERED: ONDANSETRON 4 MG/2 ML VIAL IVP PRN (07:05)
[2021-06-11] MEDS ORDERED: NALOXONE 0.4 MG/ML 1 ML VIAL IV PRN (07:05)
[2021-06-11] MEDS ORDERED: diphenhydrAMINE 50 MG/ML 1 ML VIAL ONE ×2 (07:06→09:22)
--- NOTE | 2021-06-11 07:08 | P.ANPRN ---
Procedure Note - Anesthesia - Epidural/Spinal Spinal Time Out Performed: Yes Date of Procedure: 06/11/21 Procedure Start Time: 06:49 Procedure Stop Time: 06:55 Location of Patient: PreOp Indication: Acute Post-Operative Pain Sedation Type: Sedate with meaningful contact maintained Preparation: Sterile Dressing Position: Sitting Needle Guage: 25 Blood Aspirated: No Pain Paresthesia on Injection Noted: No Events: Uneventful and Well Tolerated (fentanyl 25 mcg plus astramorph 300 mcg injected intrathecally)
[2021-06-11] MEDS: diphenhydrAMINE 50 MG/ML 1 ML VIAL IVP PRN ×2 (07:09→09:21)
[2021-06-11] MEDS ORDERED: SUCCINYLCHOLINE CHLORIDE 100 MG/5 ML SYR IV ONE (07:22)
[2021-06-11] MEDS ORDERED: KETOROLAC 15 MG/ML 1 ML VIAL ONE (07:22)
[2021-06-11] MEDS ORDERED: MIDAZOLAM 2 MG/2 ML VIAL ONE (07:22)
[2021-06-11] MEDS ORDERED: fentaNYL (PF) 50 MCG/ML 2 ML AMP ONE (07:22)
[2021-06-11] MEDS ORDERED: PROPOFOL 10 MG/ML 20 ML VIAL IV ONE (07:22)
[2021-06-11] MEDS ORDERED: LIDOCAINE 1% INJ 10MG/ML (20 ML MDV) ONE (07:22)
[2021-06-11] MEDS ORDERED: MORPHINE SULFATE (PF) 0.3 MG/0.3 ML SYR ONE (07:22)
[2021-06-11] MEDS ORDERED: BACITRACIN ZINC 500 UNIT/GM OINT 28.4 GM TUBE TOPICAL ONE (07:46)
[2021-06-11] MEDS ORDERED: SODIUM CHLORIDE 0.9% IV ONE ×2 (07:47)
[2021-06-11] MEDS ORDERED: EPINEPHRINE IV ONE ×2 (07:47)
--- NOTE | 2021-06-11 08:11 | P.OP ---
Date of Procedure: 06/11/21 Preoperative Diagnosis: Symptomatic rectocele Postoperative Diagnosis: Same Procedure(s) Performed: Posterior vaginal colporrhaphy Anesthesia: GETA, spinal (Duramorph) Surgeon: Yolanda Gómez Emissions Inspector #1: Evelyn Marks Estimated Blood Loss (ml): 50 Pathology: other (Vaginal mucosa) Condition: stable Disposition: floor Indications for Procedure: This is a 41 y.o. female, 4, para 3, who presents for posterior vaginal repair due to symptomatic rectocele. She underwent a total vaginal hysterectomy with anterior and posterior repar and transobturator sling in 2018. She hasn't been able to have intercourse since then due to dysparunia. For about 3 weeks prior to her appointment, she has been experiencing worsening perineal pain. She also has constipation with up to 1-2 weeks without a bowel movement. She has to manually evacuate her bowels by pressing in her vagina to go. She is on narcotic pain medication prescribed through her pain specialist for SI joint inflammation and degenerative disc disease. Operative Findings: Grade 2 rectocele is noted just inside the introitus. Good anterior support is noted. Description of Procedure: The patient is taken to the operating room she's placed in the dorsal lithotomy position. She is prepped and draped in the normal sterile fashion after general anesthesia is given. She has previously received a spinal Duramorph in preop. Her bladder is drained with a catheter and it is removed. 2 Allis clamps are used to grasp the introitus at the 4 and 8 o'clock position. Injection of 1 amp of epinephrine to 150 mL of normal saline solution is injected underneath the vaginal mucosa upwards towards the apex. A small triangular piece of tissue is removed with the scalpel on the perineum. Next Metzenbaum scissors are used to dissect underneath the vaginal mucosa upwards towards the apex of the cuff. I did not go all the way up to the apex because she had good support about longterm up the vagina. Next the vaginal mucosa was dissected away from the underlying rectocele with Metzenbaum scissors. Once the rectocele was freed, the rectocele was reduced using 0 Vicryl suture in interrupted [id number] stitches. Next the vaginal mucosa is trimmed and the vaginal mucosa was sutured with 0 Vicryl suture in a running locked fashion up to the introitus and then brought underneath the tissue and sutured in a running stitch up to the apex and then in a subcuticular stitch on the skin up to the introitus and tied. Several interrupted stitches are placed for good hemostasis. Good hemostasis is noted, the vagina is packed with one-inch iodoform gauze with bacitracin ointment. Ramos catheter is also placed. All sponge and needle counts are correct. The patient is then taken to recovery room in stable condition.
[2021-06-11] MEDS ORDERED: IBUPROFEN 600 MG TAB PO PRN (11:19)
[2021-06-11] MEDS ORDERED: CYCLOBENZAPRINE 10 MG TAB PO PRN (11:19)
[2021-06-11] MEDS ORDERED: ALBUTEROL NEBULIZED 2.5 MG/3 ML INHALATION PRN (11:19)
[2021-06-11] MEDS: Linaclotide [Linzess] PO SCH (11:36)
[2021-06-11] MEDS: TROSPIUM CHLORIDE 20 MG TABLET PO SCH ×2 (11:38→21:51)
[2021-06-11] MEDS: MECLIZINE 25 MG TAB PO SCH ×3 (13:47→22:33)
[2021-06-11] MEDS: ESCITALOPRAM 20 MG TAB PO SCH (13:47)
[2021-06-11] MEDS: MAGNESIUM OXIDE 400 MG TAB PO SCH (13:47)
[2021-06-11] MEDS: DOCUSATE 100 MG CAP PO SCH (13:47)
[2021-06-11] MEDS: MONTELUKAST 10 MG TAB PO SCH (13:48)
[2021-06-11] MEDS: OXcarbazepine 150 MG TAB PO SCH ×2 (13:48→21:41)
[2021-06-11] MEDS: TOPIRAMATE 25 MG TAB PO SCH ×2 (13:48→21:40)
[2021-06-11] MEDS: KETOROLAC 15 MG/ML 1 ML VIAL IVP PRN ×2 (13:49→21:43)
[2021-06-11] MEDS: PREGABALIN 100 MG CAP PO SCH ×2 (13:51→21:40)
[2021-06-11] MEDS: NALBUPHINE 10 MG/ML (1 ML AMP) IV PRN ×3 (16:54→22:33)
[2021-06-11] MEDS: ATORVASTATIN 40 MG TAB PO SCH (21:40)
[2021-06-11] MEDS: Mirabegron [Myrbetriq] 50 MG Tab.Er.24h PO SCH (21:40)
[2021-06-11] MEDS: PANTOPRAZOLE 40 MG TABLET PO SCH (21:40)
[2021-06-12] MEDS: LACTATED RINGERS 1,000 ML IV SCH (05:20)
[2021-06-12] MEDS: KETOROLAC 15 MG/ML 1 ML VIAL IVP PRN (05:21)
[2021-06-12 07:21] LABS: Basophils % (A) 0 %; Eosinophils # (A) 0.2 k/uL (0-0.7); Eosinophils % (A) 2 %; HCT 34.5 % (34.0-46.0); HGB 11.3 gm/dL (11.4-16.0); Lymphocytes # (A) 3.2 k/uL (1.0-4.8); Lymphocytes % (A) 29 %; MCH 29.9 pg (25.0-35.0); MCHC 32.7 g/dL (31.0-37.0); MCV 91.5 fL (80.0-100.0); Mean Platelet Volume 8.5; Monocytes # (A) 0.8 k/uL (0-1.0); Monocytes % (A) 7 %; Neutrophils # (A) 6.7 k/uL (1.3-7.7); Neutrophils % (A) 60 %; Platelet Count 259 k/uL (150-450); RBC 3.77 m/uL (3.80-5.40); RDW 13.5 % (11.5-15.5); WBC 11.3 k/uL (3.8-10.6)
[2021-06-12] MEDS ORDERED: ACETAMINOPHEN TAB 325 MG TAB PO PRN (07:37)
--- NOTE | 2021-06-12 07:48 | P.DS ---
Providers Date of admission: 06/12/21 01:49 Expected date of discharge: 06/12/21 Attending physician: Yolanda Gómez Primary care physician: Chance Valdez - Discharge Diagnosis(es) (1) Rectocele Current Visit: No Status: Acute Hospital Course: This is a 41-year-old female who underwent a posterior vaginal colporrhaphy due to symptomatic rectocele on 06/11/2021. Postoperatively she hasn't okay. She states her pain is more this morning by her spinal medication is wearing off. She normally takes Cambridge up to 3 times a day at home. We will start this back this morning. She has been passing flatus but no bowel movement yet. Her catheter was removed this morning and she is not urinated yet. Bleeding has been very minimal. Physical exam: Beth-pad shows very scant dried blood. Extremities show negative Homans. Impression is status post posterior colporrhaphy postoperative day #1. Plan is to discharge home today. She will resume her normal medications. She is advised follow-up in the office in 1 week for postoperative check. She may use ibuprofen as needed for pain. She may continue her Cambridge at home, however it will not prescribe it since she has a pain contract. Procedures: Posterior vaginal colporrhaphy on 06/11/2021 Patient Condition at Discharge: Stable Plan - Discharge Summary Discharge Rx Participant: Yes New Discharge Prescriptions: New Ibuprofen [Motrin] 600 mg PO Q6HR PRN #60 tab PRN Reason: Mild Discomfort Continue Omeprazole [PriLOSEC] 20 mg PO HS HYDROcodone/APAP 7.5-325MG [[place] 7.5-325] 1 tab PO TID PRN PRN Reason: Pain Trospium Chloride [Sanctura] 20 mg PO BID Albuterol Sulfate [Ventolin HFA] 1 - 2 puff INHALATION RT-Q6H PRN PRN Reason: Shortness Of Breath Atorvastatin [Lipitor] 40 mg PO HS Escitalopram [Lexapro] 20 mg PO DAILY OXcarbazepine [Trileptal] 150 mg PO BID Pregabalin [Lyrica] 200 mg PO BID Topiramate [Topamax] 50 mg PO BID Aspirin 81 mg PO DAILY Bio Shamika 1 tab PO BID Magnesium Gluconate [Magonate] 500 mg PO DAILY Cholecalciferol (Vitamin D3) [Vitamin D3 (5000 Iu)] 125 mcg PO DAILY Meclizine [Antivert] 25 mg PO TID Mirabegron [Myrbetriq] 50 mg PO HS Zlem 1 tab PO DAILY Linaclotide [Linzess] 72 mcg PO DAILY Multivitamins, Thera [Multivitamin (formulary)] 1 tab PO DAILY Docusate [Colace] 100 mg PO DAILY Bran 1 tab PO DAILY Montelukast [Singulair] 10 mg PO DAILY Orphenadrine [Norflex] 100 mg PO Q12H PRN PRN Reason: Muscle Spasm Discharge Medication List Omeprazole [PriLOSEC] 20 mg PO HS 05/17/18 [History] HYDROcodone/APAP 7.5-325MG [[place] 7.5-325] 1 tab PO TID PRN 08/24/18 [History] Trospium Chloride [Sanctura] 20 mg PO BID 07/01/19 [History] Albuterol Sulfate [Ventolin HFA] 1 - 2 puff INHALATION RT-Q6H PRN 05/31/20 [History] Atorvastatin [Lipitor] 40 mg PO HS 05/31/20 [History] Escitalopram [Lexapro] 20 mg PO DAILY 05/31/20 [History] OXcarbazepine [Trileptal] 150 mg PO BID 05/31/20 [History] Pregabalin [Lyrica] 200 mg PO BID 05/31/20 [History] Topiramate [Topamax] 50 mg PO BID 05/31/20 [History] Aspirin 81 mg PO DAILY 09/03/20 [History] Bio Shamika 1 tab PO BID 04/11/21 [History] Bran 1 tab PO DAILY 04/11/21 [History] Cholecalciferol (Vitamin D3) [Vitamin D3 (5000 Iu)] 125 mcg PO DAILY 04/11/21 [History] Docusate [Colace] 100 mg PO DAILY 04/11/21 [History] Magnesium Gluconate [Magonate] 500 mg PO DAILY 04/11/21 [History] Meclizine [Antivert] 25 mg PO TID 04/11/21 [History] Mirabegron [Myrbetriq] 50 mg PO HS 04/11/21 [History] Montelukast [Singulair] 10 mg PO DAILY 04/11/21 [History] Multivitamins, Thera [Multivitamin (formulary)] 1 tab PO DAILY 04/11/21 [History] Orphenadrine [Norflex] 100 mg PO Q12H PRN 04/11/21 [History] Zlem 1 tab PO DAILY 04/11/21 [History] Linaclotide [Linzess] 72 mcg PO DAILY 06/10/21 [History] Ibuprofen [Motrin] 600 mg PO Q6HR PRN #60 tab 06/12/21 [Rx] Follow up Appointment(s)/Referral(s): Yolanda Gómez DO [Doctor of Osteopathic Medicine] - 1 Week Activity/Diet/Wound Care/Special Instructions: Activity as tolerated. Diet as tolerated. No heavy lifting. No intercourse. May shower, but no tub baths. Discharge Disposition: HOME SELF-CARE
[2021-06-12] MEDS: ESCITALOPRAM 20 MG TAB PO SCH (08:46)
[2021-06-12] MEDS: DOCUSATE 100 MG CAP PO SCH (08:46)
[2021-06-12] MEDS: MAGNESIUM OXIDE 400 MG TAB PO SCH (08:47)
[2021-06-12] MEDS: Linaclotide [Linzess] PO SCH (08:47)
[2021-06-12] MEDS: MECLIZINE 25 MG TAB PO SCH ×3 (08:48→21:11)
[2021-06-12] MEDS: MONTELUKAST 10 MG TAB PO SCH (08:50)
[2021-06-12] MEDS: OXcarbazepine 150 MG TAB PO SCH ×2 (08:50→21:10)
[2021-06-12] MEDS: PREGABALIN 100 MG CAP PO SCH ×2 (08:51→21:11)
[2021-06-12] MEDS: TOPIRAMATE 25 MG TAB PO SCH ×2 (08:52→21:11)
[2021-06-12] MEDS: TROSPIUM CHLORIDE 20 MG TABLET PO SCH ×2 (08:53→21:10)
[2021-06-12] MEDS: HYDROcodone/APAP 7.5-325MG 1 EACH TAB PO PRN ×2 (10:42→18:28)
[2021-06-12] MEDS: ONDANSETRON 4 MG/2 ML VIAL IVP PRN ×2 (12:32→16:33)
[2021-06-12 20:25] VITALS: RESP 16
[2021-06-12] MEDS: PANTOPRAZOLE 40 MG TABLET PO SCH (21:10)
[2021-06-12] MEDS: ATORVASTATIN 40 MG TAB PO SCH (21:10)
[2021-06-12] MEDS: Mirabegron [Myrbetriq] 50 MG Tab.Er.24h PO SCH (21:11)
[2021-06-13] MEDS: HYDROcodone/APAP 7.5-325MG 1 EACH TAB PO PRN ×2 (02:37→07:38)
[2021-06-13] MEDS: LACTATED RINGERS 1,000 ML IV SCH (05:24)
[2021-06-13] MEDS: DOCUSATE 100 MG CAP PO SCH (07:37)
[2021-06-13] MEDS: TROSPIUM CHLORIDE 20 MG TABLET PO SCH (07:37)
[2021-06-13] MEDS: PREGABALIN 100 MG CAP PO SCH (07:37)
[2021-06-13] MEDS: TOPIRAMATE 25 MG TAB PO SCH (07:38)
[2021-06-13] MEDS: OXcarbazepine 150 MG TAB PO SCH (07:39)
[2021-06-13] MEDS: MONTELUKAST 10 MG TAB PO SCH (07:39)
[2021-06-13] MEDS: MAGNESIUM OXIDE 400 MG TAB PO SCH (07:39)
[2021-06-13] MEDS: MECLIZINE 25 MG TAB PO SCH (07:39)
[2021-06-13] MEDS: ESCITALOPRAM 20 MG TAB PO SCH (07:39)
[2021-06-13] MEDS: Linaclotide [Linzess] PO SCH (07:40)
[2021-06-13 08:49] VITALS: BP 103/68; PULSE 83; TEMP 97.8
== END 2021-06-13 10:40 | disposition home or self-care (01) ==
LOC: OR 05:47 → 6PED 08:41 → OR 23:53 → 6PED 06-12 01:49
PROVIDERS: ADMIT Obstetrics & Gynecology; ATTEND Obstetrics & Gynecology
DX: N81.6 Rectocele (principal); K59.00 Constipation, unspecified; N94.10 Unspecified dyspareunia; R11.0 Nausea; M79.7 Fibromyalgia; K21.9 Gastro-esophageal reflux disease without esophagitis; J45.990 Exercise induced bronchospasm; G43.909 Migraine, unspecified, not intractable, without status migrainosus; M47.818 Spondylosis without myelopathy or radiculopathy, sacral and sacrococcygeal region; M50.30 Other cervical disc degeneration, unspecified cervical region; M51.36 Other intervertebral disc degeneration, lumbar region; M50.20 Other cervical disc displacement, unspecified cervical region; M51.26 Other intervertebral disc displacement, lumbar region; Z79.82 Long term (current) use of aspirin; Z79.899 Other long term (current) drug therapy; Z88.8 Allergy status to other drugs, medicaments and biological substances; Z90.710 Acquired absence of both cervix and uterus; Z98.890 Other specified postprocedural states; Z91.041 Radiographic dye allergy status; Z86.59 Personal history of other mental and behavioral disorders; Z98.1 Arthrodesis status; Z82.49 Family history of ischemic heart disease and other diseases of the circulatory system; Z82.3 Family history of stroke
CPT/HCPCS: 57250; 86900; 86901; 85025; 86850; 88302; G0378 ×2; J2250; J0171; J1200; J1100; J2300; J0690; J2405 ×2; J2001; J2274; J3010; J1885 ×2; J0330; J2704

== ENCOUNTER → 2022-01-27 | Outpatient (CLI) | payer BC ==
--- NOTE | 2022-01-27 09:28 | CT ---
EXAMINATION TYPE: CT lumbar spine wo con DATE OF EXAM: 01/27/2022 8:11 AM COMPARISON: CT dated 04/11/2021 HISTORY: pain and numbness. Arthrodesis status CT DLP: 1063 mGycm Automated exposure control for dose reduction was used. TECHNIQUE: Unenhanced CT of the lumbar spine was performed. Bone and soft tissue window settings are submitted as well as coronal and sagittal reconstructions. FINDINGS: Presumed lumbar lordosis. No significant anterolisthesis or retrolisthesis. No definite vertebral bod y collapse or acute displaced fracture. Degenerative changes of the lumbar spine with tiny multilevel opposing endplate osteophytosis. Mild L1-2 facet osteoarthropathy. L1-L2: No significant disc disease, central spinal canal stenosis or neuroforaminal stenosis L2-L3: Mild diffuse posterior disc bulge with focal right foraminal and extraforaminal protrusion, as sociated with slightly prominent posterior epidural fat, causing mild central spinal stenosis without significant neural foraminal stenosis L3-L4: Diffuse posterior disc bulge slightly more inclined to the left side, causing no significant c entral spinal canal stenosis or neuroforaminal stenosis L4-L5: Mild diffuse posterior disc bulge, causing no significant central spinal canal stenosis or horacio roforaminal stenosis L5-S1: Degenerated disc with small central posterior focal disc protrusion, causing no significant ce ntral spinal canal stenosis or significant neuroforaminal stenosis No paraspinal lesion. Mild degenerative changes of the sacroiliac joints. IMPRESSION: Mild degenerative changes of the lumbar spine as detailed above, please correlate clinically. Further MRI assessment can be considered if clinically required.
--- NOTE | 2022-01-27 09:39 | CT ---
EXAMINATION TYPE: CT cervical spine wo con DATE OF EXAM: 01/27/2022 COMPARISON: CT dated 05/31/2020 HISTORY: pain and numbness. Arthrodesis status CT DLP: 624 mGycm Automated exposure control for dose reduction was used. TECHNIQUE: CT scan of the cervical spine is obtained without contrast, axial images are obtained, sa gittal and coronal reformatted images are also reviewed. FINDINGS: Anterior fixation at C5-6 and C6-7 levels using plates and screws with disc prosthesis. Progressive s clerotic changes are seen at the operative bed opposing endplates yet the fusion is not complete. No evidence of prosthesis break or displacement. Reversal of normal cervical curvature. No significant anterolisthesis or retrolisthesis. No definite vertebral body collapse or acute displaced fracture. Degenerative changes at C5-6 and C6-7 levels wit h opposing endplate osteophytosis and degenerative discs. At C2-3 level: No significant central spinal canal stenosis or neuroforaminal stenosis. At C3-4 level: No significant central spinal canal stenosis or neuroforaminal stenosis. At C4-5 level: Mild degenerative changes without significant central spinal canal stenosis or neurofo raminal stenosis. At C5-6 level: Operative bed with posterior disc osteophyte complex, more evident on the right side, causing moderate central spinal canal stenosis and moderate right neuroforaminal stenosis compressing the right C6 nerve root. At C6-7 level: Operative bed with posterior disc osteophyte complex, causing moderate to severe centr al spinal canal stenosis, mild left and severe right neuroforaminal stenosis compressing the right C7 nerve root. No paraspinal lesion. Small heterogeneous thyroid gland. Asymmetrically smaller left submandibular sa livary gland. Smaller left pyriform sinus with 5 mm calcification within, underlying lesion can't be excluded. Further ENT consultation can be considered. IMPRESSION: Postsurgical changes and degenerative changes at C5-6 and C6-7 as detailed above, please correlate clinically. Further MRI assessment can be considered if clinically required. Other incident al findings and recommendations as detailed above.
== END | disposition home or self-care (01) ==
LOC: RADCTMAIN 07:44
PROVIDERS: ATTEND Neurological Surgery
DX: M47.27 Other spondylosis with radiculopathy, lumbosacral region (principal); M47.812 Spondylosis without myelopathy or radiculopathy, cervical region; Z98.1 Arthrodesis status
CPT/HCPCS: 72125; 72131

== ENCOUNTER 2022-06-06 21:23 | Emergency (ER) | payer BC ==
[2022-06-06] MEDS ORDERED: ACETAMINOPHEN IV (For NPO) 1,000 MG in EMPTY BAG 1 BAG IVPB STA (21:39)
[2022-06-06] MEDS ORDERED: ONDANSETRON 4 MG/2 ML VIAL IVP STA (21:39)
[2022-06-06] MEDS ORDERED: DEXAMETHASONE SOD PHOSPHATE 10 MG/ML 1 ML VIAL IVP STA (21:39)
[2022-06-06] MEDS ORDERED: SODIUM CHLORIDE 0.9% 1,000 ML IV STA ×2 (21:39)
[2022-06-06] MEDS ORDERED: KETOROLAC 15 MG/ML 1 ML VIAL IVP STA (21:39)
--- NOTE | 2022-06-06 21:45 | ED ---
Fever HPI - General Chief Complaint: ENT Stated Complaint: ear pain;congestion; fever Time Seen by Provider: 06/06/22 21:30 Source: patient, family, RN notes reviewed, old records reviewed Mode of arrival: ambulatory Limitations: no limitations - History of Present Illness MD Complaint: fever, malaise, weakness -: days(s) Temperature Source: subjective, oral Context: sick contacts, multiple patients with similar symptoms Associated Symptoms: chills, myalgias, headache, nasal congestion, sore throat, cough, nausea Treatments Prior to Arrival: Acetaminophen, Ibuprofen - Related Data Home Medications Medication Instructions Recorded Confirmed Omeprazole [PriLOSEC] 20 mg PO HS 05/17/18 06/11/21 HYDROcodone/APAP 7.5-325MG [[place] 1 tab PO TID PRN 08/24/18 06/11/21 7.5-325] Trospium Chloride [Sanctura] 20 mg PO BID 07/01/19 06/11/21 Albuterol Sulfate [Ventolin HFA] 1 - 2 puff INHALATION RT-Q6H PRN 05/31/20 06/11/21 Atorvastatin [Lipitor] 40 mg PO HS 05/31/20 06/11/21 Escitalopram [Lexapro] 20 mg PO DAILY 05/31/20 06/11/21 OXcarbazepine [Trileptal] 150 mg PO BID 05/31/20 06/11/21 Pregabalin [Lyrica] 200 mg PO BID 05/31/20 06/11/21 Topiramate [Topamax] 50 mg PO BID 05/31/20 06/11/21 Aspirin 81 mg PO DAILY 09/03/20 06/11/21 Bio Shamika 1 tab PO BID 04/11/21 06/11/21 Bran 1 tab PO DAILY 04/11/21 06/11/21 Cholecalciferol (Vitamin D3) 125 mcg PO DAILY 04/11/21 06/11/21 [Vitamin D3 (5000 Iu)] Docusate [Colace] 100 mg PO DAILY 04/11/21 06/11/21 Magnesium Gluconate [Magonate] 500 mg PO DAILY 04/11/21 06/11/21 Meclizine [Antivert] 25 mg PO TID 04/11/21 06/11/21 Mirabegron [Myrbetriq] 50 mg PO HS 04/11/21 06/11/21 Montelukast [Singulair] 10 mg PO DAILY 04/11/21 06/11/21 Multivitamins, Thera [Multivitamin 1 tab PO DAILY 04/11/21 06/11/21 (formulary)] Orphenadrine [Norflex] 100 mg PO Q12H PRN 04/11/21 06/11/21 Zlem 1 tab PO DAILY 04/11/21 06/11/21 Linaclotide [Linzess] 72 mcg PO DAILY 06/10/21 06/11/21 Previous Rx's Medication Instructions Recorded Ibuprofen [Motrin] 600 mg PO Q6HR PRN #60 tab 06/12/21 Allergies Allergy/AdvReac Type Severity Reaction Status Date / Time [id number]-gnlm Allergy Anaphylaxis Verified 06/06/22 21:29 [From Emgality Pen] Iodinated Contrast Media Allergy Anaphylaxis Verified 06/06/22 21:29 Review of Systems ROS Statement: Those systems with pertinent positive or pertinent negative responses have been documented in the HPI. ROS Other: All systems not noted in ROS Statement are negative. Past Medical History Past Medical History: Asthma, GERD/Reflux, Musculoskeletal Disorder, Syncope Additional Past Medical History / Comment(s): Degenerative disc disease, herniated discs in cervical and lumbar spine, signs of arthritis, migraine headaches. History of eating disorder. GERD resolved at this time. Exercise induced asthma. Hx. separation of pelvis, has difficulty getting to standing position from sitting/lying. Rectal bleeding History of Any Multi-Drug Resistant Organisms: None Reported Past Surgical History: Adenoidectomy, Bladder Surgery, Hysterectomy, Orthopedic Surgery, Tonsillectomy Additional Past Surgical History / Comment(s): Laparoscopy, EP Study, Endoscopy, D&C, rectocele and cystocele repair, bladder mesh, urethral sling, carpal tunnel surgery bilateral wrists, 2 ganglion cyts right hand middle digit removed. cervical fusion Past Anesthesia/Blood Transfusion Reactions: Previous Problems w/ Anesthesia Additional Past Anesthesia/Blood Transfusion Reaction / Comment(s): Woke up during endoscopy procedure one time. Past Psychological History: Anxiety, Bipolar, Depression Smoking Status: Never smoker Past Alcohol Use History: None Reported Past Drug Use History: None Reported - Past Family History Mother Family Medical History: Hypertension Father Family Medical History: CVA/TIA, Myocardial Infarction ([place]) General Exam Limitations: no limitations General appearance: alert, in no apparent distress Head exam: Present: atraumatic, normocephalic, normal inspection Eye exam: Present: normal appearance, PERRL, EOMI. Absent: scleral icterus, conjunctival injection, periorbital swelling ENT exam: Present: normal exam, mucous membranes moist Neck exam: Present: normal inspection. Absent: tenderness, meningismus, lymphadenopathy Respiratory exam: Present: normal lung sounds bilaterally. Absent: respiratory distress, wheezes, rales, rhonchi, stridor Cardiovascular Exam: Present: normal rhythm, tachycardia, normal heart sounds. Absent: systolic murmur, diastolic murmur, rubs, gallop, clicks GI/Abdominal exam: Present: soft, normal bowel sounds. Absent: distended, tenderness, guarding, rebound, rigid Extremities exam: Present: normal inspection, full ROM, normal capillary refill. Absent: tenderness, pedal edema, joint swelling, calf tenderness Back exam: Present: normal inspection Neurological exam: Present: alert, oriented X3, CN II-XII intact Psychiatric exam: Present: normal affect, normal mood Skin exam: Present: warm, dry, intact, normal color. Absent: rash Course Vital Signs 06/06/22 21:25 Temperature 100.2 F H Pulse Rate 112 H Respiratory 22 Rate Blood Pressure 121/74 O2 Sat by Pulse 98 Oximetry Medical Decision Making - Lab Data Result diagrams: 06/06/22 22:32 06/06/22 22:32 Lab Results 06/06/22 06/06/22 06/06/22 Range/Units 22:32 22:32 22:32 WBC 10.8 H (3.8-10.6) k/uL RBC 4.73 (3.80-5.40) m/uL Hgb 14.5 (11.4-16.0) gm/dL Hct 42.3 (34.0-46.0) % MCV 89.4 (80.0-100.0) fL MCH 30.7 (25.0-35.0) pg MCHC 34.4 (31.0-37.0) g/dL RDW 13.5 (11.5-15.5) % Plt Count 309 (150-450) k/uL MPV 8.2 Neutrophils % 65 % Lymphocytes % 21 % Monocytes % 10 % Eosinophils % 1 % Basophils % 1 % Neutrophils # 7.0 (1.3-7.7) k/uL Lymphocytes # 2.3 (1.0-4.8) k/uL Monocytes # 1.1 H (0-1.0) k/uL Eosinophils # 0.1 (0-0.7) k/uL Basophils # 0.1 (0-0.2) k/uL Sodium 137 (137-145) mmol/L Potassium 4.1 (3.5-5.1) mmol/L Chloride 105 (98-107) mmol/L Carbon Dioxide 19 L (22-30) mmol/L Anion Gap 13 mmol/L BUN 6 L (7-17) mg/dL Creatinine 0.72 (0.52-1.04) mg/dL Est GFR (CKD-EPI)AfAm >90 (>60 ml/min/1.73 sqM) Est GFR (CKD-EPI)NonAf >90 (>60 ml/min/1.73 sqM) Glucose 97 (74-99) mg/dL Calcium 9.5 (8.4-10.2) mg/dL Phosphorus 3.0 (2.5-4.5) mg/dL Magnesium 1.8 (1.6-2.3) mg/dL Total Bilirubin 0.5 (0.2-1.3) mg/dL AST 25 (14-36) U/L ALT 13 (4-34) U/L Alkaline Phosphatase 100 (38-126) U/L Total Protein 7.6 (6.3-8.2) g/dL Albumin 4.6 (3.5-5.0) g/dL Coronavirus (PCR) Detected A (Not Detectd) Disposition Clinical Impression: Fever, Coronavirus infection Disposition: HOME SELF-CARE Condition: Good Instructions (If sedation given, give patient instructions): Coronavirus Disease 2019 (COVID-19) Is patient prescribed a controlled substance at d/c from ED?: No Referrals: Chance Valdez DO [Primary Care Provider] - 1-2 days
[2022-06-06 22:40] LABS: Basophils # (A) 0.1 k/uL (0-0.2); Basophils % (A) 1 %; Eosinophils # (A) 0.1 k/uL (0-0.7); Eosinophils % (A) 1 %; HCT 42.3 % (34.0-46.0); HGB 14.5 gm/dL (11.4-16.0); Lymphocytes # (A) 2.3 k/uL (1.0-4.8); Lymphocytes % (A) 21 %; MCH 30.7 pg (25.0-35.0); MCHC 34.4 g/dL (31.0-37.0); MCV 89.4 fL (80.0-100.0); Mean Platelet Volume 8.2; Monocytes # (A) 1.1 k/uL (0-1.0); Monocytes % (A) 10 %; Neutrophils % (A) 65 %; Platelet Count 309 k/uL (150-450); RBC 4.73 m/uL (3.80-5.40); RDW 13.5 % (11.5-15.5); WBC 10.8 k/uL (3.8-10.6)
[2022-06-06 22:52] LABS: ALT 13 U/L (4-34); AST 25 U/L (14-36); African American GFR (CKD) >90 (>60 ml/min/1.73 sqM); Albumin 4.6 g/dL (3.5-5.0); Alkaline Phosphatase 100 U/L (38-126); Anion Gap 13 mmol/L; Blood Urea Nitrogen 6 mg/dL (7-17); Calcium 9.5 mg/dL (8.4-10.2); Carbon Dioxide 19 mmol/L (22-30); Chloride 105 mmol/L (98-107); Glucose 97 mg/dL (74-99); Magnesium 1.8 mg/dL (1.6-2.3); Non-African American GFR(CKD) >90 (>60 ml/min/1.73 sqM); Potassium 4.1 mmol/L (3.5-5.1); Sodium 137 mmol/L (137-145); Total Bilirubin 0.5 mg/dL (0.2-1.3); Total Protein 7.6 g/dL (6.3-8.2)
--- NOTE | 2022-06-06 22:59 | XR ---
EXAMINATION TYPE: XR chest 1V portable DATE OF EXAM: 06/06/2022 COMPARISON: 06/01/2020 HISTORY: Short of breath TECHNIQUE: FINDINGS: Heart and mediastinum are normal. Lungs are clear. Diaphragm is normal. Bony thorax appears normal. IMPRESSION: Normal chest. No adverse change.
[2022-06-06] MEDS ORDERED: ONDANSETRON 4 MG ODT STARTER PACK 2 TAB BTL PO STA (23:11)
[2022-06-06] MEDS ORDERED: IBUPROFEN 600 MG STARTER PACK 4 TAB BTL PO STA (23:11)
[2022-06-06 23:31] VITALS: BP 134/77; PULSE 107; RESP 18; TEMP 99.8
== END 2022-06-06 23:31 | disposition home or self-care (01) ==
LOC: EC 21:23
DX: U07.1 COVID-19 (principal); H92.09 Otalgia, unspecified ear; K21.9 Gastro-esophageal reflux disease without esophagitis; J45.909 Unspecified asthma, uncomplicated; Z91.041 Radiographic dye allergy status; Z88.8 Allergy status to other drugs, medicaments and biological substances; Z79.899 Other long term (current) drug therapy; Z79.82 Long term (current) use of aspirin
CPT/HCPCS: 36415; 80053; 83735; 84100; 85025; 87502; 87635; 71045; 99284; 96365; 96375; J1100; J2405; J0131; J1885; S0119

== ENCOUNTER → 2022-07-09 | Outpatient (CLI) | payer BC ==
--- NOTE | 2022-07-09 10:18 | MM ---
Reason for Exam: Clinical finding. Last mammogram was performed 2 year(s) and 9 month(s) ago. Indicated Problems: Pain of both sides (Global) for 6 Month(s) : discomfort is gone today in rt lt is tender. Patient History: Menarche at age 10. First Full-Term at age 28. Hysterectomy at age 38. Postmenopausal. Patient has history of breast feeding. Paternal aunt (edmundo) had breast cancer, age 45. Paternal aunt (collin) had breast cancer, age 39. Risk Values: Rayne 5 year model risk: 0.9%. NCI Lifetime model risk: 11.8%. Prior Study Comparison: 09/15/2018 Bilateral Screening Mammogram, [facility]. 09/28/2019 Bilateral Screening Mammogram, [facility]. Tissue Density: The breast tissue is heterogeneously dense. This may lower the sensitivity of mammography. Findings: Analyzed By CAD. No discrete masses seen. Fatty tissue at the site of clinical concern right axillary region. No suspicious calcifications present. Overall Assessment: Benign, BI-RAD 2 Management: Screening Mammogram of both breasts in 1 year. A clinical breast exam by your physician is recommended on an annual basis and results should be correlated with mammographic findings. This exam should not preclude additional follow-up of suspicious palpable abnormalities. Results were given to the patient verbally at the time of exam. Electronically signed and approved by: Bishnu Bah M.D. Radiologis
== END | disposition home or self-care (01) ==
LOC: RADMAMWWP 09:42
PROVIDERS: ATTEND Obstetrics & Gynecology
DX: N64.4 Mastodynia (principal); Z78.0 Asymptomatic menopausal state; Z80.3 Family history of malignant neoplasm of breast
CPT/HCPCS: 77062; 77066

== ENCOUNTER → 2022-07-16 | Outpatient (CLI) | payer BC ==
[2022-07-16 14:12] LABS: Basophils # (A) 0.04 X 10*3/uL (0.00-0.10); Basophils % (A) 0.4 %; Eosinophils # (A) 0.34 X 10*3/uL (0.04-0.35); HCT 40.3 % (37.2-46.3); HGB 13.1 g/dL (12.0-15.0); Immature Grans, Automated 0.4 %; Lymphocytes # (A) 3.74 X 10*3/uL (0.90-5.00); Lymphocytes % (A) 33.1 %; MCHC 32.5 g/dL (32.0-37.0); MCV 92.2 fL (80.0-97.0); Mean Platelet Volume 10.2 fL (9.5-12.2); Monocytes # (A) 0.84 X 10*3/uL (0.20-1.00); Monocytes % (A) 7.4 %; NRBC Per 100 WBC 0 /100 WBCS (0.0-0.0); Neutrophils # (A) 6.28 X 10*3/uL (1.80-7.70); Neutrophils % (A) 55.7 %; Platelet Count 317 X 10*3/uL (140-440); RBC 4.37 X 10*6/uL (4.10-5.20); RDW 14.4 % (11.5-14.5); WBC 11.29 X 10*3/uL (4.50-10.00)
[2022-07-16 14:39] LABS: Thyroid Peroxidase Antibodies <9.0 U/mL (0.0-33.0)
[2022-07-16 15:04] LABS: ALT 23 U/L (8-44); AST 21 U/L (13-35); Albumin 4.2 g/dL (3.8-4.9); Alkaline Phosphatase 93 U/L (41-126); Blood Urea Nitrogen 10.5 mg/dL (9.0-27.0); Calcium 9.4 mg/dL (8.7-10.3); Carbon Dioxide 22.8 mmol/L (20.0-27.5); Chloride 107 mmol/L (96-109); Glucose 99 mg/dL (70-110); Non-African American GFR(CKD) 106.1 (60.0-200.0); Potassium 4.3 mmol/L (3.5-5.5); Rheumatoid Factor, Qnt <10 IU/mL (0-15); Sodium 141 mmol/L (135-145); Total Bilirubin <0.15 mg/dL (0.30-1.20); Total Protein 6.2 g/dL (6.2-8.2)
[2022-07-16 17:47] LABS: Anti-DNA, DS unit <1.0 IU/mL; Anti-Smith Ab Interp NEGATIVE (NEGATIVE); Cyclic Citrull Pep IgG Unit <0.5 U/mL; Cyclic Citrullinated Pep IgG NEGATIVE (NEGATIVE); DNA Double-Stranded NEGATIVE (NEGATIVE); Scleroderma SC-70 Ab <0.2 AI
== END | disposition home or self-care (01) ==
LOC: LABWHC1 10:36
PROVIDERS: ATTEND Specialist
DX: R76.8 Other specified abnormal immunological findings in serum (principal)
CPT/HCPCS: 36415; 80053; 85025; 86038; 86160; 86200; 86225; 86235; 86376; 86431; 86800

== ENCOUNTER → 2022-07-16 | Outpatient (CLI) | payer BC ==
--- NOTE | 2022-07-18 07:30 | US ---
EXAMINATION TYPE: US abdomen complete DATE OF EXAM: 07/16/2022 COMPARISON: NONE CLINICAL HISTORY: R10.11 RUQ PAIN. RUQ pain TECHNIQUE: Multiple sonographic images of the abdomen are obtained. FINDINGS: EXAM MEASUREMENTS: Liver Length: 16.5 cm Gallbladder Wall: 0.3 cm CBD: 0.5 cm Spleen: 10.5 cm Right Kidney: 10.2 x 5.0 x 4.4 cm Left Kidney: 10.0 x 5.5 x 5.4 cm CUT OFF SAW GRADER NOTES: Technical limitations due to patient's large body habitus and extensive overlying bowel gas Pancreas: Tail obscured by overlying bowel gas Liver: wnl Gallbladder: wnl Evidence for sonographic Cruz's sign: CBD: wnl Spleen: wnl Right Kidney: wnl Left Kidney: wnl Upper IVC: wnl Abd Aorta: bifurcation obscured by overlying bowel gas otherwise wnl The liver is homogenous. The intrahepatic portion of the IVC and proximal abdominal aorta are within normal limits. There is no evidence of cholelithiasis. Common bile duct is unremarkable. The visu alized portions of the pancreas are homogenous. The spleen is unremarkable. Kidneys are symmetric a nd free of hydronephrosis. No renal lesions are seen. IMPRESSION: Examination is considered to be within normal limits.
== END | disposition home or self-care (01) ==
LOC: RADUSWWP 09:47
PROVIDERS: ATTEND Family Medicine
DX: R10.11 Right upper quadrant pain (principal)
CPT/HCPCS: 76700

== ENCOUNTER → 2022-09-09 | Outpatient (CLI) | payer BC ==
--- NOTE | 2022-09-09 11:34 | CT ---
EXAMINATION TYPE: CT soft tissue neck w con DATE OF EXAM: 09/09/2022 HISTORY: Previous abnormal CT of neck. Patient having no complaints at time of scan COMPARISON: CT cervical spine January 27, 2022 CT DLP: 554.2 mGycm. Automated Exposure Control for Dose Reduction was Utilized. TECHNIQUE: CT scan of the neck is performed with IV Contrast, patient injected with 70ml mL of Isovu e 300, axial images are obtained, coronal and sagittal reformatted images are reviewed. FINDINGS: Airway: No gross abnormality seen. Parotid/submandibular glands: No gross abnormality seen. Carotid/Vascular Structures: No significant plaque or stenosis at carotid bulb level bilaterally. Cod ominant vertebral arteries. Osseous Structures: Reversal of normal cervical curvature redemonstrated centered at mid cervical lev els. Surgical change anterior C5-C6 and C6-C7 level redemonstrated. Slight lateral convex scoliotic c urvature centered upper thoracic spine on coronal images redemonstrated. Other: No suspicious greater than 1 cm neck adenopathy. IMPRESSION: No significant abnormality is seen.
== END | disposition home or self-care (01) ==
LOC: RADCTMAIN 10:59
PROVIDERS: ATTEND Otolaryngology
DX: J34.89 Other specified disorders of nose and nasal sinuses (principal)
CPT/HCPCS: 70491; Q9967

== ENCOUNTER → 2022-10-08 | Outpatient (CLI) | payer BC ==
--- NOTE | 2022-10-08 11:45 | XR ---
EXAMINATION TYPE: XR lumbar spine 2 or 3V DATE OF EXAM: 10/08/2022 CLINICAL HISTORY: pain TECHNIQUE: Three views of the lumbar spine are submitted. COMPARISON: None. FINDINGS: There are 5 lumbar type vertebral bodies identified. The lumbar spine shows satisfactory alignment w ithout evidence of acute fracture or dislocation. Vertebral body heights are within normal limits. Disc spaces are within normal limits. Innumerable ventral spondylosis. The overlying soft tissue yung ears unremarkable. 3 screws traverse the left SI joint region. IMPRESSION: No acute fracture or dislocation is seen in the lumbar spine. ICD 10 NO FRACTURE, INITIAL EVALUATION
== END | disposition home or self-care (01) ==
LOC: RADXRMAIN 11:19
PROVIDERS: ATTEND Urology
DX: M54.50 Low back pain, unspecified (principal)
CPT/HCPCS: 72100

== ENCOUNTER 2023-08-17 11:47 | Emergency (ER) | payer BC ==
--- NOTE | 2023-08-17 12:17 | ED ---
SOB HPI - General Source: patient, RN notes reviewed Mode of arrival: ambulatory Limitations: no limitations - History of Present Illness MD Complaint: shortness of breath, cough <Suzanne Navas - Last Filed: 08/17/23 12:12> - General Source: patient, RN notes reviewed Limitations: no limitations <Mayank Dave - Last Filed: 08/17/23 19:38> - General Chief Complaint: Upper Respiratory Infection Stated Complaint: cough Time Seen by Provider: 08/17/23 12:16 - History of Present Illness Initial Comments: This is a 43 year old female who presents to the emergency department for chest pain, shortness of breath, and hemoptysis. Reports having a cough and congestion for about a week, however she recently started to cough up blood. She saw her primary care provider today, who was concerned that she may have a blood clot in her lungs, and advised she come here for evaluation. She does report pain in the left calf as well. (Suzanne Navas) Patient is a pleasant 43-year-old female presents emergency department with concern for cough. Onset of symptoms was around 10 days ago. Patient does have occasional yellow/green sputum. Patient did have some rust colored sputum as well. Patient did go to urgent care who recommended she be evaluated to rule out blood clot. Patient did have some mild discomfort of her left calf as well. Patient has had recent lower back procedure for stimulator. Patient does have a distant history of exertional asthma. (Mayank Dave) - Related Data Home Medications Medication Instructions Recorded Confirmed HYDROcodone/APAP 7.5-325MG [[place] 1 tab PO TID PRN 08/24/18 08/17/23 7.5-325] Albuterol Sulfate [Ventolin HFA] 2 puff INHALATION RT-Q4H PRN 05/31/20 08/17/23 Atorvastatin [Lipitor] 40 mg PO HS 05/31/20 08/17/23 Escitalopram [Lexapro] 20 mg PO DAILY 05/31/20 08/17/23 Pregabalin [Lyrica] 200 mg PO BID 05/31/20 08/17/23 Topiramate [Topamax] 50 mg PO BID 05/31/20 08/17/23 Aspirin 81 mg PO DAILY 09/03/20 08/17/23 Cholecalciferol (Vitamin D3) 125 mcg PO DAILY 04/11/21 08/17/23 [Vitamin D3 (5000 Iu)] Docusate [Colace] 100 mg PO DAILY 04/11/21 08/17/23 Meclizine [Antivert] 25 mg PO BID 04/11/21 08/17/23 Montelukast [Singulair] 10 mg PO DAILY 04/11/21 08/17/23 Butalb/APAP/Caff 50-325-40Mg 1 tab PO BID PRN 08/17/23 08/17/23 [Fioricet 50-325-40] Famotidine [Pepcid] 20 mg PO BID 08/17/23 08/17/23 Melatonin 5 mg PO HS PRN 08/17/23 08/17/23 OXcarbazepine [Trileptal] 150 mg PO BID 08/17/23 08/17/23 busPIRone HCL [Buspar] 7.5 mg PO BID 08/17/23 08/17/23 Previous Rx's Medication Instructions Recorded predniSONE [Deltasone] 20 mg PO BID #10 tab 08/17/23 Allergies Allergy/AdvReac Type Severity Reaction Status Date / Time celecoxib [From Celebrex] Allergy Rash/Hives Verified 08/17/23 17:59 on Torso [id number] Allergy Anaphylaxis Verified 08/17/23 17:59 [From Emgality Pen] Iodinated Contrast Media Allergy Anaphylaxis Verified 08/17/23 17:59 Review of Systems ROS Other: All systems not noted in ROS Statement are negative. <Suzanne Navas - Last Filed: 08/17/23 12:12> ROS Other: All systems not noted in ROS Statement are negative. Constitutional: Denies: fever Eyes: Denies: as per HPI ENT: Denies: ear pain Respiratory: Reports: as per HPI, cough Cardiovascular: Denies: chest pain Endocrine: Denies: fatigue Gastrointestinal: Denies: abdominal pain Neurological: Reports: headache (Patient does have a mild headache as well and does request medication for this) <Mayank Dave - Last Filed: 08/17/23 19:38> ROS Statement: Those systems with pertinent positive or pertinent negative responses have been documented in the HPI. Past Medical History Past Medical History: Asthma, GERD/Reflux, Musculoskeletal Disorder, Syncope Additional Past Medical History / Comment(s): Degenerative disc disease, herniated discs in cervical and lumbar spine, signs of arthritis, migraine headaches. History of eating disorder. GERD resolved at this time. Exercise induced asthma. Hx. separation of pelvis, has difficulty getting to standing position from sitting/lying. Rectal bleeding History of Any Multi-Drug Resistant Organisms: None Reported Past Surgical History: Adenoidectomy, Bladder Surgery, Hysterectomy, Orthopedic Surgery, Tonsillectomy Additional Past Surgical History / Comment(s): Laparoscopy, EP Study, Endoscopy, D&C, rectocele and cystocele repair, bladder mesh, urethral sling, carpal tunnel surgery bilateral wrists, 2 ganglion cyts right hand middle digit removed. cervical fusion Past Anesthesia/Blood Transfusion Reactions: Previous Problems w/ Anesthesia Additional Past Anesthesia/Blood Transfusion Reaction / Comment(s): Woke up during endoscopy procedure one time. Past Psychological History: Anxiety, Depression - Past Family History Mother Family Medical History: Hypertension Father Family Medical History: CVA/TIA, Myocardial Infarction ([place]) <Suzanne Navas - Last Filed: 08/17/23 12:12> General Exam <Suzanne Navas - Last Filed: 08/17/23 12:12> Limitations: no limitations General appearance: alert, in no apparent distress Head exam: Present: normocephalic Eye exam: Present: normal appearance Neck exam: Present: normal inspection Respiratory exam: Present: wheezes, rhonchi Cardiovascular Exam: Present: regular rate, normal rhythm GI/Abdominal exam: Present: soft. Absent: tenderness Extremities exam: Present: normal inspection. Absent: pedal edema, calf tenderness Neurological exam: Present: alert Psychiatric exam: Present: normal affect, normal mood Skin exam: Present: normal color <Mayank Dave - Last Filed: 08/17/23 19:38> - General Exam Comments Initial Comments: Visual Physical Exam Vital signs reviewed General: Well-appearing, nontoxic, no acute distress. Head: Normocephalic, atraumatic Eyes: PERRLA, EOMI ENT: Airway patent Chest: Nonlabored breathing Skin: No visual rash, normal skin tone Neuro: Alert and oriented 3 Musculoskeletal: No gross abnormalities I performed the QuickNote portion of this chart. Signed Suzanne Navas PA-C. (Suzanne Navas) Course Vital Signs 08/17/23 08/17/23 08/17/23 12:12 16:16 16:49 Temperature 98.2 F Pulse Rate 79 78 Respiratory 18 18 18 Rate Blood Pressure 114/77 110/78 O2 Sat by Pulse 100 99 Oximetry 08/17/23 08/17/23 08/17/23 17:17 17:27 18:39 Temperature Pulse Rate 60 60 89 Respiratory 18 Rate Blood Pressure 109/55 O2 Sat by Pulse 98 Oximetry Medical Decision Making - Lab Data Result diagrams: 08/17/23 16:49 08/17/23 16:49 <Mayank Dave - Last Filed: 08/17/23 19:38> - Medical Decision Making EKG interpreted by myself shows sinus rhythm with rate of 78. [place] 141. QRS 89. QT 354. QTC 388. Normal axis. Normal QRS. Nonspecific T waves. Was pt. sent in by a medical professional or institution (, PA, MEDICAL EXAMINER, urgent care, hospital, or fdc...) When possible be specific @ -Patient was sent from urgent care Did you speak to anyone other than the patient for history (EMS, parent, family, police, friend...)? What history was obtained from this source @ -. Family is present and helps confirm history Did you review nursing and triage notes (agree or disagree)? Why? @ -I reviewed and agree with nursing and triage notes Were old charts reviewed (outside hosp., previous admission, EMS record, old EKG, old radiological studies, urgent care reports/EKG's, fdc records)? Report findings @ -No old charts were reviewed Differential Diagnosis (chest pain, altered mental status, abdominal pain women, abdominal pain men, vaginal bleeding, weakness, fever, dyspnea, syncope, headache, dizziness, GI bleed, back pain, seizure, CVA, palpatations, mental health, musculoskeletal)? @ -Differential Dyspnea: Coronary syndrome, arrhythmia, tamponade, asthma, COPD, pulmonary embolism, pneumonia, pneumothorax, pulmonary effusion, anaphylaxis, diabetic ketoacidosis, flailed chest, pulmonary contusion, diaphragmatic rupture, anemia, neuromuscular, this is not meant to be an all-inclusive list. EKG interpreted by me (3pts min.). @ -As above X-rays interpreted by me (1pt min.). @ -Chest x-ray shows no acute process CT interpreted by me (1pt min.). @ -Port reviewed U/S interpreted by me (1pt. min.). @ -Report reviewed What testing was considered but not performed or refused? (CT, X-rays, U/S, labs)? Why? @ -None What meds were considered but not given or refused? Why? @ -None Did you discuss the management of the patient with other professionals (professionals i.e. DrMiguel, PA, MEDICAL EXAMINER, lab, RT, psych nurse, health and social care teacher, model dresser, teacher, public service officer, nurse case management)? Give summary @ -No Was smoking cessation discussed for >3mins.? @ -No Was critical care preformed (if so, how long)? @ -No Were there social determinants of health that impacted care today? How? (Homelessness, low income, unemployed, alcoholism, drug addiction, transportation, low edu. Level, literacy, decrease access to med. care, intermediate, rehab)? @ -No Was there de-escalation of care discussed even if they declined (Discuss DNR or withdrawal of care, Hospice)? DNR status @ -No What co-morbidities impacted this encounter? (DM, HTN, Smoking, COPD, CAD, Cancer, CVA, ARF, Chemo, Hep., AIDS, mental health diagnosis, sleep apnea, morbid obesity)? @ -None Was patient admitted / discharged? Hospital course, mention meds given and route, prescriptions, significant lab abnormalities, going to OR and other pertinent info. @ -Patient did have wheezing that is somewhat improved with nebulizer. Patient had hemoptysis with oral D-dimer. Computed tomography scan negative for pulmonary embolism. No sign of DVT on ultrasound. Patient is updated on results. Patient still has mild headache and does request further medication. Patient is receptive to steroids. Patient states she does have nebulizer and medication at home and will use this as needed. Undiagnosed new problem with uncertain prognosis? @ -No Drug Therapy requiring intensive monitoring for toxicity (Heparin, Nitro, Insul in, Cardizem)? @ -No Were any procedures done? @ -No Diagnosis/symptom? @ -Hemoptysis, asthma exacerbation Acute, or Chronic, or Acute on Chronic? @ -Acute, acute Uncomplicated (without systemic symptoms) or Complicated (systemic symptoms)? @ -default Side effects of treatment? @ -No Exacerbation, Progression, or Severe Exacerbation? @ -No Poses a threat to life or bodily function? How? (Chest pain, [place], [place], pneumonia, PE, COPD, DKA, ARF, appy, cholecystitis, CVA, Diverticulitis, Homicidal, Suicidal, threat to staff... and all critical care pts) @ -No (Mayank Dave) - Lab Data Lab Results 08/17/23 08/17/23 08/17/23 Range/Units 12:56 16:49 16:49 WBC 13.4 H (3.8-10.6) k/uL RBC 4.54 (3.80-5.40) m/uL Hgb 14.0 (11.4-16.0) gm/dL Hct 41.8 (34.0-46.0) % MCV 92.2 (80.0-100.0) fL MCH 30.8 (25.0-35.0) pg MCHC 33.4 (31.0-37.0) g/dL RDW 13.9 (11.5-15.5) % Plt Count 323 (150-450) k/uL MPV 8.0 Neutrophils % 62 % Lymphocytes % 26 % Monocytes % 5 % Eosinophils % 6 % Basophils % 1 % Neutrophils # 8.3 H (1.3-7.7) k/uL Lymphocytes # 3.5 (1.0-4.8) k/uL Monocytes # 0.7 (0-1.0) k/uL Eosinophils # 0.7 (0-0.7) k/uL Basophils # 0.1 (0-0.2) k/uL PT 9.7 (9.0-12.0) sec INR 0.9 (<1.2) APTT 24.3 (22.0-30.0) sec D-Dimer 0.60 H (<0.60) mg/L FEU Sodium (137-145) mmol/L Potassium (3.5-5.1) mmol/L Chloride (98-107) mmol/L Carbon Dioxide (22-30) mmol/L Anion Gap mmol/L BUN (7-17) mg/dL Creatinine (0.52-1.04) mg/dL Est GFR (CKD-EPI)AfAm (>60 ml/min/1.73 sqM) Est GFR (CKD-EPI)NonAf (>60 ml/min/1.73 sqM) Glucose (74-99) mg/dL Plasma Lactic Acid Reyes (0.7-2.0) mmol/L Calcium (8.4-10.2) mg/dL Total Bilirubin (0.2-1.3) mg/dL AST (14-36) U/L ALT (4-34) U/L Alkaline Phosphatase (38-126) U/L Troponin I (0.000-0.034) ng/mL Total Protein (6.3-8.2) g/dL Albumin (3.5-5.0) g/dL Influenza Type A (PCR) Not Detected (Not Detectd) Influenza Type B (PCR) Not Detected (Not Detectd) RSV (PCR) Not Detected (Not Detectd) SARS-CoV-2 (PCR) Not Detected (Not Detectd) 08/17/23 08/17/23 08/17/23 Range/Units 16:49 16:49 16:49 WBC (3.8-10.6) k/uL RBC (3.80-5.40) m/uL Hgb (11.4-16.0) gm/dL Hct (34.0-46.0) % MCV (80.0-100.0) fL MCH (25.0-35.0) pg MCHC (31.0-37.0) g/dL RDW (11.5-15.5) % Plt Count (150-450) k/uL MPV Neutrophils % % Lymphocytes % % Monocytes % % Eosinophils % % Basophils % % Neutrophils # (1.3-7.7) k/uL Lymphocytes # (1.0-4.8) k/uL Monocytes # (0-1.0) k/uL Eosinophils # (0-0.7) k/uL Basophils # (0-0.2) k/uL PT (9.0-12.0) sec INR (<1.2) APTT (22.0-30.0) sec D-Dimer (<0.60) mg/L FEU Sodium 139 (137-145) mmol/L Potassium 3.7 (3.5-5.1) mmol/L Chloride 103 (98-107) mmol/L Carbon Dioxide 23 (22-30) mmol/L Anion Gap 13 mmol/L BUN 8 (7-17) mg/dL Creatinine 0.62 (0.52-1.04) mg/dL Est GFR (CKD-EPI)AfAm >90 (>60 ml/min/1.73 sqM) Est GFR (CKD-EPI)NonAf >90 (>60 ml/min/1.73 sqM) Glucose 79 (74-99) mg/dL Plasma Lactic Acid Reyes 1.3 (0.7-2.0) mmol/L Calcium 9.6 (8.4-10.2) mg/dL Total Bilirubin 0.4 (0.2-1.3) mg/dL AST 38 H (14-36) U/L ALT 24 (4-34) U/L Alkaline Phosphatase 104 (38-126) U/L Troponin I <0.012 (0.000-0.034) ng/mL Total Protein 7.5 (6.3-8.2) g/dL Albumin 4.6 (3.5-5.0) g/dL Influenza Type A (PCR) (Not Detectd) Influenza Type B (PCR) (Not Detectd) RSV (PCR) (Not Detectd) SARS-CoV-2 (PCR) (Not Detectd) Disposition <Suzanne Navas - Last Filed: 08/17/23 12:12> Is patient prescribed a controlled substance at d/c from ED?: No Time of Disposition: 19:37 <Mayank Dave - Last Filed: 08/17/23 19:38> Clinical Impression: Hemoptysis, Asthma exacerbation Disposition: HOME SELF-CARE Condition: Stable Instructions (If sedation given, give patient instructions): Asthma (ED), Coughing Up Blood (Hemoptysis) (ED) Additional Instructions: Prescription has been sent to pharmacy. Please do follow-up to primary care physician in the next one or 2 days for recheck. Return for difficulty breathing, fevers, worsening symptoms or other concerns. Prescriptions: predniSONE [Deltasone] 20 mg PO BID #10 tab Referrals: Chance Valdez DO [Primary Care Provider] - 1-2 days
[2023-08-17 12:20] VITALS: RESP 18
--- NOTE | 2023-08-17 13:39 | XR ---
EXAMINATION TYPE: XR chest 2V DATE OF EXAM: 08/17/2023 1:33 PM CLINICAL INDICATION:Female, 43 years old with history of difficulty breathing; COMPARISON: Chest radiographs from 05/28/2022 TECHNIQUE: XR chest 2V Frontal and lateral views of the chest. FINDINGS: Lungs/Pleura: There is no evidence of pleural effusion, focal consolidation, or pneumothorax. Pulmonary vascularity: Unremarkable. Heart/mediastinum: Cardiomediastinal silhouette is unremarkable. Musculoskeletal: No acute osseous pathology. There is fixation hardware in the lower cervical spine. IMPRESSION: No acute cardiopulmonary disease/process.
--- NOTE | 2023-08-17 15:05 | US ---
EXAMINATION TYPE: US venous doppler duplex LE LT DATE OF EXAM: 08/17/2023 2:56 PM COMPARISON: NONE CLINICAL INDICATION: Female, 43 years old with history of Leg pain; lt posterior calf pain and leg sw elling x a few months SIDE PERFORMED: Left TECHNIQUE: The lower extremity deep venous system is examined utilizing real time linear array sonog flo with graded compression, doppler sonography and color-flow sonography. VESSELS IMAGED: Common Femoral Vein Deep Femoral Vein Greater Saphenous Vein * Femoral Vein Popliteal Vein Small Saphenous Vein * Proximal Calf Veins (* superficial vessels) Grayscale, color doppler, spectral doppler imaging performed of the deep veins of the left lower extr emity. There is normal flow, compressibility, vascular waveforms. Left Leg: Negative for DVT IMPRESSION: No deep venous thrombosis of the left lower extremity.
[2023-08-17 16:59] LABS: Basophils # (A) 0.1 k/uL (0-0.2); Basophils % (A) 1 %; Eosinophils # (A) 0.7 k/uL (0-0.7); Eosinophils % (A) 6 %; HCT 41.8 % (34.0-46.0); Lymphocytes # (A) 3.5 k/uL (1.0-4.8); Lymphocytes % (A) 26 %; MCH 30.8 pg (25.0-35.0); MCHC 33.4 g/dL (31.0-37.0); MCV 92.2 fL (80.0-100.0); Monocytes # (A) 0.7 k/uL (0-1.0); Monocytes % (A) 5 %; Neutrophils # (A) 8.3 k/uL (1.3-7.7); Neutrophils % (A) 62 %; Platelet Count 323 k/uL (150-450); RBC 4.54 m/uL (3.80-5.40); RDW 13.9 % (11.5-15.5); WBC 13.4 k/uL (3.8-10.6)
[2023-08-17] MEDS ORDERED: ACETAMINOPHEN TAB 500 MG TAB PO STA (17:04)
[2023-08-17] MEDS ORDERED: IPRATROPIUM-ALBUTEROL 3 ML NEB INHALATION STA (17:04)
[2023-08-17 17:09] LABS: ALT 24 U/L (4-34); AST 38 U/L (14-36); African American GFR (CKD) >90 (>60 ml/min/1.73 sqM); Albumin 4.6 g/dL (3.5-5.0); Alkaline Phosphatase 104 U/L (38-126); Anion Gap 13 mmol/L; Blood Urea Nitrogen 8 mg/dL (7-17); Calcium 9.6 mg/dL (8.4-10.2); Carbon Dioxide 23 mmol/L (22-30); Chloride 103 mmol/L (98-107); Glucose 79 mg/dL (74-99); Non-African American GFR(CKD) >90 (>60 ml/min/1.73 sqM); Potassium 3.7 mmol/L (3.5-5.1); Sodium 139 mmol/L (137-145); Total Bilirubin 0.4 mg/dL (0.2-1.3); Total Protein 7.5 g/dL (6.3-8.2)
[2023-08-17 17:13] LABS: INR 0.9 (<1.2); Partial Thromboplastin Time 24.3 sec (22.0-30.0); Prothrombin Time 9.7 sec (9.0-12.0)
[2023-08-17] MEDS ORDERED: diphenhydrAMINE 50 MG/ML 1 ML VIAL IVP STA (17:52)
[2023-08-17] MEDS ORDERED: methylPREDNISolone SOD SUCCI 125 MG/2 ML VIAL IV STA (17:52)
[2023-08-17] MEDS ORDERED: FAMOTIDINE 20 MG/2 ML VIAL IV STA (17:52)
--- NOTE | 2023-08-17 19:13 | CT ---
EXAMINATION TYPE: CT angio chest CT DLP: 407 mGycm, Automated exposure control for dose reduction was used. DATE OF EXAM: 08/17/2023 6:40 PM COMPARISON: 12/01/2018 CLINICAL INDICATION:Female, 43 years old with history of Hemoptysis; Hemoptysis, sob and elevated d-d tej TECHNIQUE/CONTRAST: CTA scan of the thorax is performed with IV Contrast, patient injected with 65ml mL of Isovue 370, AL P images are created and reviewed these are created on a separate workstation.. FINDINGS: Pulmonary Artery: There is no evidence for a filling defect within the pulmonary vasculature to sugge st acute pulmonary embolism. The pulmonary artery is of normal size. Lungs/Pleura: No evidence of focal consolidation, pleural effusion or pneumothorax. Airway: Large airways are patent. Heart: Heart is within normal limits for size. Vasculature: No evidence of aortic aneurysm. Mediastinum: No gross evidence of adenopathy. Musculoskeletal: No acute osseous abnormalities Soft Tissues: Unremarkable. Lower neck: No significant findings. Upper Abdomen: No significant findings. IMPRESSION: No evidence of pulmonary embolism.
[2023-08-17] MEDS ORDERED: MORPHINE SULFATE 4 MG/ML SYRINGE IVP STA (19:38)
[2023-08-17 21:34] VITALS: BP 103/61; PULSE 93; TEMP 98.1
== END 2023-08-17 21:25 | disposition home or self-care (01) ==
LOC: EC 11:47
DX: J45.901 Unspecified asthma with (acute) exacerbation (principal); R04.2 Hemoptysis; F32.A Depression, unspecified; F41.9 Anxiety disorder, unspecified; Z79.82 Long term (current) use of aspirin; Z79.899 Other long term (current) drug therapy; Z88.6 Allergy status to analgesic agent; Z88.8 Allergy status to other drugs, medicaments and biological substances; Z20.822 Contact with and (suspected) exposure to COVID-19
CPT/HCPCS: 36415; 94640; 93005; 85379; 80053; 83605; 84484; 85025; 85610; 85730; 87636; 71046; 93971; 71275; 99284; 96374; 96375 ×3; J2270; J1200; J2930; J3490; Q9967

== ENCOUNTER → 2023-10-27 | Outpatient (CLI) | payer BC ==
--- NOTE | 2023-10-29 22:26 | MM ---
Reason for Exam: Screening (asymptomatic). Last mammogram was performed 1 year(s) and 4 month(s) ago. Patient History: Menarche at age 10. First Full-Term at age 28. Hysterectomy at age 38. Postmenopausal. Patient has history of breast feeding. Paternal aunt (edmundo) had breast cancer, age 45. Paternal aunt (collin) had breast cancer, age 39. Risk Values: Rayne 5 year model risk: 0.9%. NCI Lifetime model risk: 11.7%. Prior Study Comparison: 09/15/2018 Bilateral Screening Mammogram, [facility]. 09/28/2019 Bilateral Screening Mammogram, [facility]. 07/09/2022 Bilateral MG 3D diag mammo w/cad ASHANTI, [facility]. Tissue Density: The breast tissue is heterogeneously dense. This may lower the sensitivity of mammography. Findings: Analyzed By CAD. Bilateral areas of asymmetric density remain unchanged. There is no suspicious group of microcalcifications or new suspicious mass in either breast. Overall Assessment: Benign, BI-RAD 2 Management: Screening Mammogram of both breasts in 1 year. . Patient should continue monthly self-breast exams. A clinical breast exam by your physician is recommended on an annual basis. This exam should not preclude additional follow-up of suspicious palpable abnormalities. Note on Rayne scores and lifetime risk: 1. A Rayne score greater than 3% is considered moderate risk. If this is the case, consider specialist referral to assess eligibility for a risk reducing agent. 2. If overall lifetime risk for the development of breast cancer is 20% or higher, the patient may qualify for future screening with alternating mammogram and breast MRI. Electronically signed and approved by: Kristine Olivares M.D. Radiologist
== END | disposition home or self-care (01) ==
LOC: RADMAMWWP 15:08
PROVIDERS: ATTEND Obstetrics & Gynecology
DX: Z12.31 Encounter for screening mammogram for malignant neoplasm of breast (principal); Z78.0 Asymptomatic menopausal state; Z80.3 Family history of malignant neoplasm of breast
CPT/HCPCS: 77063; 77067

== ENCOUNTER 2024-06-23 12:51 | Emergency (ER) | payer BC ==
[2024-06-23] MEDS ORDERED: HYDROmorphone 1 MG/ML 1 ML SYRINGE ONE ×2 (14:02→17:41)
[2024-06-23] MEDS ORDERED: KETOROLAC 15 MG/ML 1 ML VIAL ONE (14:02)
[2024-06-23] MEDS ORDERED: methylPREDNISolone SOD SUCCI 125 MG/2 ML VIAL ONE (14:03)
--- NOTE | 2024-07-15 14:16 | CT ---
Patient Maggie Osuna ID [id number] Order # EXAMINATION TYPE: CT lumbar spine wo con DATE OF EXAM: 06/23/2024 COMPARISON: No comparison available on downtime PACS. HISTORY: Lower extremity weakness x4 days, unable to walk x1 day CT DLP: 968.3 mGycm CONTRAST: None TECHNIQUE: CT of the lumbar spine is performed on a spiral scan at 3 mm thick sections. Reconstructed images are performed in the coronal and sagittal planes. FINDINGS: T12-L1: No focal disc herniation or significant disc bulge is evident. No spinal canal stenosis or neural foraminal stenosis is present. L1-L2: No focal disc herniation or significant disc bulge is evident. No spinal canal stenosis or n eural foraminal stenosis is present L2-L3: Mild disc bulge is present. This has mild anterior thecal sac compression. No AP spinal canal stenosis is present. Neural foramen are patent. L3-L4: Mild disc bulge is present with moderate anterior thecal sac compression. No AP spinal canal s tenosis is present. Mild ligamentum flavum laxity is posterior lateral thecal sac compression. L4-L5: Mild disc bulge is anterior thecal sac flattening. No AP spinal canal stenosis. Neural foramen are patent. L5-S1: No focal disc herniation or significant disc bulge is evident. No spinal canal stenosis. Mod erate foraminal narrowing is present. Vertebral alignment appears normal. IMPRESSION: 1. Mild disc bulging L2-3 through L4-5 without spinal canal stenosis. 2. Some moderate foraminal narrowing is present L5-S1. 3. No suspicious cord compression or spinal canal stenosis within the [id number].
== END 2024-06-23 18:00 | disposition home or self-care (01) ==
LOC: EC 12:51
CPT/HCPCS: 72131; 96374; 96375; 96376; 99283

== ENCOUNTER → 2025-01-02 | Outpatient (CLI) | payer BC ==
--- NOTE | 2025-01-02 11:42 | XR ---
EXAMINATION TYPE: XR chest 2V DATE OF EXAM: 01/02/2025 11:35 AM COMPARISON: 08/17/2023 CLINICAL INDICATION: Female, 44 years old with history of J18.1, pneumonia TECHNIQUE: XR chest 2V view(s) obtained. FINDINGS: The heart size is normal. The pulmonary vasculature is normal. The lungs are clear. Postsurgical disc changes in the lower cervical spine are noted. IMPRESSION: 1. No acute pulmonary process. [facility], , 01/02/2025 11:40 AM
== END | disposition home or self-care (01) ==
LOC: RADXRMAIN 11:18
PROVIDERS: ATTEND Family Medicine
DX: J18.1 Lobar pneumonia, unspecified organism (principal)
CPT/HCPCS: 71046

== ENCOUNTER 2025-03-19 17:18 | Emergency (ER) | payer BC ==
[2025-03-19 17:22] VITALS: TEMP 98.4
--- NOTE | 2025-03-19 17:42 | ED ---
General Adult HPI - General Chief complaint: Abdominal Pain Stated complaint: nausea, abdominal pain Time Seen by Provider: 03/19/25 17:24 Source: patient, RN notes reviewed Mode of arrival: ambulatory Limitations: no limitations - History of Present Illness Initial comments: 45-year-old female presents emergency department complaints of abdominal pain, nausea, and vomiting over the past week. Patient states that she had a recent surgery for revision of a nerve modulator to control her bladder, on Thursday, and since this time she has been experiencing described symptoms (surgery was completed by Dr. Pedro). She was started on Bactrim prophylactically to minimize risk of infection postsurgically. Patient endorses right upper abdominal pain. Denies diarrhea, constipation, urinary complaints, chest pain, difficulty breathing. Patient has follow-up appointment scheduled with surgeon on Thursday. - Related Data Home Medications Medication Instructions Recorded Confirmed HYDROcodone/APAP 7.5-325MG [[place] 1 tab PO TID PRN 08/24/18 08/17/23 7.5-325] Albuterol Sulfate [Ventolin HFA] 2 puff INHALATION RT-Q4H PRN 05/31/20 08/17/23 Atorvastatin [Lipitor] 40 mg PO HS 05/31/20 08/17/23 Escitalopram [Lexapro] 20 mg PO DAILY 05/31/20 08/17/23 Pregabalin [Lyrica] 200 mg PO BID 05/31/20 08/17/23 Topiramate [Topamax] 50 mg PO BID 05/31/20 08/17/23 Aspirin 81 mg PO DAILY 09/03/20 08/17/23 Cholecalciferol (Vitamin D3) 125 mcg PO DAILY 04/11/21 08/17/23 [Vitamin D3 (5000 Iu)] Docusate [Colace] 100 mg PO DAILY 04/11/21 08/17/23 Meclizine [Antivert] 25 mg PO BID 04/11/21 08/17/23 Montelukast [Singulair] 10 mg PO DAILY 04/11/21 08/17/23 Butalb/APAP/Caff 50-325-40Mg 1 tab PO BID PRN 08/17/23 08/17/23 [Fioricet 50-325-40] Famotidine [Pepcid] 20 mg PO BID 08/17/23 08/17/23 Melatonin 5 mg PO HS PRN 08/17/23 08/17/23 OXcarbazepine [Trileptal] 150 mg PO BID 08/17/23 08/17/23 busPIRone HCL [Buspar] 7.5 mg PO BID 08/17/23 08/17/23 Previous Rx's Medication Instructions Recorded predniSONE [Deltasone] 20 mg PO BID #10 tab 08/17/23 Metoclopramide [Reglan] 10 mg PO TID PRN #15 tab 03/19/25 Allergies Allergy/AdvReac Type Severity Reaction Status Date / Time celecoxib [From Celebrex] Allergy Rash/Hives Verified 03/19/25 17:22 on Torso [id number] Allergy Anaphylaxis Verified 03/19/25 17:22 [From Emgality Pen] Iodinated Contrast Media Allergy Anaphylaxis Verified 03/19/25 17:22 Review of Systems ROS Statement: Those systems with pertinent positive or pertinent negative responses have been documented in the HPI. ROS Other: All systems not noted in ROS Statement are negative. Past Medical History Past Medical History: Asthma, GERD/Reflux, Musculoskeletal Disorder, Syncope Additional Past Medical History / Comment(s): Degenerative disc disease, herniated discs in cervical and lumbar spine, signs of arthritis, migraine headaches. History of eating disorder. GERD resolved at this time. Exercise induced asthma. Hx. separation of pelvis, has difficulty getting to standing position from sitting/lying. Rectal bleeding History of Any Multi-Drug Resistant Organisms: None Reported Past Surgical History: Adenoidectomy, Bladder Surgery, Hysterectomy, Orthopedic Surgery, Tonsillectomy Additional Past Surgical History / Comment(s): Laparoscopy, EP Study, Endoscopy, D&C, rectocele and cystocele repair, bladder mesh, urethral sling, carpal tunnel surgery bilateral wrists, 2 ganglion cyts right hand middle digit removed. cervical fusion Past Anesthesia/Blood Transfusion Reactions: Previous Problems w/ Anesthesia Additional Past Anesthesia/Blood Transfusion Reaction / Comment(s): Woke up during endoscopy procedure one time. Past Psychological History: Anxiety, Depression Smoking Status: Never smoker Past Alcohol Use History: Occasional Past Drug Use History: None Reported - Past Family History Mother Family Medical History: Hypertension Father Family Medical History: CVA/TIA, Myocardial Infarction (AR) General Exam Limitations: no limitations ENT exam: Present: normal exam, mucous membranes moist Neck exam: Present: normal inspection. Absent: tenderness, meningismus, lymphadenopathy Respiratory exam: Present: normal lung sounds bilaterally. Absent: respiratory distress, wheezes, rales, rhonchi, stridor Cardiovascular Exam: Present: regular rate, normal rhythm, normal heart sounds. Absent: systolic murmur, diastolic murmur, rubs, gallop, clicks GI/Abdominal exam: Present: soft, tenderness (mild RUQ), normal bowel sounds. Absent: distended, guarding, rebound, rigid Extremities exam: Present: normal inspection, full ROM, normal capillary refill. Absent: tenderness, pedal edema, joint swelling, calf tenderness Back exam: Present: normal inspection, other (left lumbar post surgical incision with overlying dermamond, healing well). Absent: CVA tenderness (R), CVA tenderness (L) Skin exam: Present: warm, dry, intact, normal color. Absent: rash Course Vital Signs 03/19/25 03/19/25 17:20 17:57 Temperature 98.4 F Pulse Rate 86 88 Respiratory 16 18 Rate Blood Pressure 110/71 110/74 O2 Sat by Pulse 98 99 Oximetry Medical Decision Making - Medical Decision Making Was pt. sent in by a medical professional or institution (, PA, SSIS DEVELOPER, urgent care, hospital, or snf...) When possible be specific @ -No Did you speak to anyone other than the patient for history (EMS, parent, family, police, friend...)? What history was obtained from this source @ -No Did you review nursing and triage notes (agree or disagree)? Why? @ -I reviewed and agree with nursing and triage notes Were old charts reviewed (outside hosp., previous admission, EMS record, old EKG, old radiological studies, urgent care reports/EKG's, snf records)? Report findings @ -No old charts were reviewed Differential Diagnosis (chest pain, altered mental status, abdominal pain women, abdominal pain men, vaginal bleeding, weakness, fever, dyspnea, syncope, headache, dizziness, GI bleed, back pain, seizure, CVA, palpatations, mental health, musculoskeletal)? @ -Differential Abdominal Pain Women: Appendicitis, Cholecystitis, diverticulosis, ischemic bowel, pancreatitis, hepatitis, UTI, gastroenteritis, AAA, incarcerated hernia, bowel obstruction, constipation, inflammatory bowel, hepatitis, peptic ulcer disease, splenic infarction, perforated viscus, vulvitis, ovarian torsion, PID, kidney stone, placenta abruption, this is not meant to be an all-inclusive list EKG interpreted by me (3pts min.). @ - none X-rays interpreted by me (1pt min.). @ -None done CT interpreted by me (1pt min.). @ -None done U/S interpreted by me (1pt. min.). @ -Ultrasound of the gallbladder reveals common bile duct portions appear within normal limits with no evidence sonographic Cruz sign with no evidence for acute process. What testing was considered but not performed or refused? (CT, X-rays, U/S, labs)? Why? @ -None What meds were considered but not given or refused? Why? @ -None Did you discuss the management of the patient with other professionals (professionals i.e. , PA, SSIS DEVELOPER, lab, RT, psych nurse, social sciences instructor, engraver copperplate, teacher, training officer, caser in)? Give summary @ -No Was smoking cessation discussed for >3mins.? @ -No Was critical care preformed (if so, how long)? @ -No Were there social determinants of health that impacted care today? How? (Homelessness, low income, unemployed, alcoholism, drug addiction, transportation, low edu. Level, literacy, decrease access to med. care, retirement, rehab)? @ -No Was there de-escalation of care discussed even if they declined (Discuss DNR or withdrawal of care, Hospice)? DNR status @ -No What co-morbidities impacted this encounter? (DM, HTN, Smoking, COPD, CAD, Canc er, CVA, ARF, Chemo, Hep., AIDS, mental health diagnosis, sleep apnea, morbid obesity)? @ -None Was patient admitted / discharged? Hospital course, mention meds given and route, prescriptions, significant lab abnormalities, going to OR and other pertinent info. @ -Discharge. 45-year-old female sent to emergency room with complaints of nausea, vomiting, abdominal pain. Patient has mild right upper quadrant abdominal tenderness. She is provided with dose of Zofran and fluids. Laborat ory test including CBC, CMP is unremarkable. Urinalysis reveals 2+ ketones consistent with dehydration. Ultrasound of the gallbladder no acute process. Patient 5 dose of Reglan for continued nausea. On reevaluation patient said that she is feeling well. Patient's SI nerve modulator post surgical site is well healing with no signs of infection. she has follow up with urology scheduled on Thursday. return parameters discussed. case discussed wt Dr. Anaya. Undiagnosed new problem with uncertain prognosis? @ -No Drug Therapy requiring intensive monitoring for toxicity (Heparin, Nitro, Insulin, Cardizem)? @ -No Were any procedures done? @ -No Diagnosis/symptom? @ -acute nausea and vomiting Acute, or Chronic, or Acute on Chronic? @ -acute Uncomplicated (without systemic symptoms) or Complicated (systemic symptoms)? @ -uncomplicated Side effects of treatment? @ -No Exacerbation, Progression, or Severe Exacerbation? @ -No Poses a threat to life or bodily function? How? (Chest pain, USA, AR, pneumonia, PE, COPD, DKA, ARF, appy, cholecystitis, CVA, Diverticulitis, Homicidal, Suicidal, threat to staff... and all critical care pts) @ -No - Lab Data Result diagrams: 03/19/25 18:06 03/19/25 18:06 Lab Results 03/19/25 03/19/25 03/19/25 Range/Units 18:06 18:06 18:06 WBC 6.92 (4.50-10.00) 10*3/uL RBC 4.62 (4.10-5.20) 10*6/uL Hgb 14.1 (12.0-15.0) g/dL Hct 41.1 (37.2-46.3) % MCV 89.0 (80.0-97.0) fL MCH 30.5 (27.0-32.0) pg MCHC 34.3 (32.0-37.0) g/dL Plt Count 281 (140-440) 10*3/uL MPV 10.6 (9.5-12.2) fL Immature Gran % (Auto) 0.3 % Neutrophils % 70.9 % Lymphocytes % 22.3 % Monocytes % 5.2 % Eosinophils % 0.9 % Basophils % 0.4 % Immature Gran # 0.02 (0.00-0.04) 10*3/uL Neutrophils # 4.91 (1.80-7.70) 10*3/uL Lymphocytes # 1.54 (0.90-5.00) 10*3/uL Monocytes # 0.36 (0.20-1.00) 10*3/uL Eosinophils # 0.06 (0.04-0.35) 10*3/uL Basophils # 0.03 (0.00-0.10) 10*3/uL Sodium 139 (137-145) mmol/L Potassium 4.3 (3.5-5.1) mmol/L Chloride 111 H (98-107) mmol/L Carbon Dioxide 17 L (22-30) mmol/L Anion Gap 11 mmol/L BUN 8 (7-17) mg/dL Creatinine 0.79 (0.52-1.04) mg/dL Est GFR (CKD-EPI)AfAm >90 (>60 ml/min/1.73 sqM) Est GFR (CKD-EPI)NonAf >90 (>60 ml/min/1.73 sqM) Glucose 97 (74-99) mg/dL Plasma Lactic Acid Reyes 1.1 (0.7-2.0) mmol/L Calcium 9.7 (8.4-10.2) mg/dL Total Bilirubin 0.7 (0.2-1.3) mg/dL AST 20 (14-36) U/L ALT 12 (4-34) U/L Alkaline Phosphatase 63 (38-126) U/L Total Protein 6.6 (6.3-8.2) g/dL Albumin 4.3 (3.5-5.0) g/dL Amylase 58 (30-110) U/L Lipase 164 (23-300) U/L Urine Color Urine Appearance (Clear) Urine pH (5.0-8.0) Ur Specific [place] (1.001-1.035) Urine Protein (Negative) Urine Glucose (UA) (Negative) Urine Ketones (Negative) Urine Blood (Negative) Urine Nitrite (Negative) Urine Bilirubin (Negative) Urine Urobilinogen (<2.0) mg/dL Ur Leukocyte Esterase (Negative) 03/19/25 Range/Units 19:49 WBC (4.50-10.00) 10*3/uL RBC (4.10-5.20) 10*6/uL Hgb (12.0-15.0) g/dL Hct (37.2-46.3) % MCV (80.0-97.0) fL MCH (27.0-32.0) pg MCHC (32.0-37.0) g/dL Plt Count (140-440) 10*3/uL MPV (9.5-12.2) fL Immature Gran % (Auto) % Neutrophils % % Lymphocytes % % Monocytes % % Eosinophils % % Basophils % % Immature Gran # (0.00-0.04) 10*3/uL Neutrophils # (1.80-7.70) 10*3/uL Lymphocytes # (0.90-5.00) 10*3/uL Monocytes # (0.20-1.00) 10*3/uL Eosinophils # (0.04-0.35) 10*3/uL Basophils # (0.00-0.10) 10*3/uL Sodium (137-145) mmol/L Potassium (3.5-5.1) mmol/L Chloride (98-107) mmol/L Carbon Dioxide (22-30) mmol/L Anion Gap mmol/L BUN (7-17) mg/dL Creatinine (0.52-1.04) mg/dL Est GFR (CKD-EPI)AfAm (>60 ml/min/1.73 sqM) Est GFR (CKD-EPI)NonAf (>60 ml/min/1.73 sqM) Glucose (74-99) mg/dL Plasma Lactic Acid Reyes (0.7-2.0) mmol/L Calcium (8.4-10.2) mg/dL Total Bilirubin (0.2-1.3) mg/dL AST (14-36) U/L ALT (4-34) U/L Alkaline Phosphatase (38-126) U/L Total Protein (6.3-8.2) g/dL Albumin (3.5-5.0) g/dL Amylase (30-110) U/L Lipase (23-300) U/L Urine Color Colorless Urine Appearance Clear (Clear) Urine pH 6.5 (5.0-8.0) Ur Specific [place] 1.009 (1.001-1.035) Urine Protein Negative (Negative) Urine Glucose (UA) Negative (Negative) Urine Ketones 2+ H (Negative) Urine Blood Negative (Negative) Urine Nitrite Negative (Negative) Urine Bilirubin Negative (Negative) Urine Urobilinogen <2.0 (<2.0) mg/dL Ur Leukocyte Esterase Negative (Negative) Disposition Clinical Impression: Nausea and vomiting Disposition: HOME SELF-CARE Condition: Stable Instructions (If sedation given, give patient instructions): Acute Nausea and Vomiting (ED) Additional Instructions: Please return to the Emergency Department if symptoms worsen or any other concerns. Follow-up as scheduled on Thursday with urologist for further evaluation. Prescriptions: Metoclopramide [Reglan] 10 mg PO TID PRN #15 tab PRN Reason: Nausea Is patient prescribed a controlled substance at d/c from ED?: No Referrals: Chance Valdez DO [Primary Care Provider] - 1-2 days Time of Disposition: 20:45
[2025-03-19] MEDS: SODIUM CHLORIDE 0.9% 1,500 ML IV ONE (18:07)
[2025-03-19] MEDS: ONDANSETRON 4 MG/2 ML VIAL IVP STA (18:07)
[2025-03-19 18:27] LABS: Basophils # (A) 0.03 10*3/uL (0.00-0.10); Basophils % (A) 0.4 %; Eosinophils # (A) 0.06 10*3/uL (0.04-0.35); Eosinophils % (A) 0.9 %; HCT 41.1 % (37.2-46.3); HGB 14.1 g/dL (12.0-15.0); Lymphocytes # (A) 1.54 10*3/uL (0.90-5.00); Lymphocytes % (A) 22.3 %; MCH 30.5 pg (27.0-32.0); MCHC 34.3 g/dL (32.0-37.0); Mean Platelet Volume 10.6 fL (9.5-12.2); Monocytes # (A) 0.36 10*3/uL (0.20-1.00); Monocytes % (A) 5.2 %; Neutrophils # (A) 4.91 10*3/uL (1.80-7.70); Neutrophils % (A) 70.9 %; Platelet Count 281 10*3/uL (140-440); RBC 4.62 10*6/uL (4.10-5.20); RDW 13.2 % (11.5-14.5); WBC 6.92 10*3/uL (4.50-10.00)
[2025-03-19 18:43] LABS: ALT 12 U/L (4-34); AST 20 U/L (14-36); African American GFR (CKD) >90 (>60 ml/min/1.73 sqM); Albumin 4.3 g/dL (3.5-5.0); Alkaline Phosphatase 63 U/L (38-126); Amylase 58 U/L (30-110); Anion Gap 11 mmol/L; Blood Urea Nitrogen 8 mg/dL (7-17); Calcium 9.7 mg/dL (8.4-10.2); Carbon Dioxide 17 mmol/L (22-30); Chloride 111 mmol/L (98-107); Glucose 97 mg/dL (74-99); Lipase 164 U/L (23-300); Non-African American GFR(CKD) >90 (>60 ml/min/1.73 sqM); Potassium 4.3 mmol/L (3.5-5.1); Sodium 139 mmol/L (137-145); Total Bilirubin 0.7 mg/dL (0.2-1.3); Total Protein 6.6 g/dL (6.3-8.2)
--- NOTE | 2025-03-19 19:06 | US ---
EXAMINATION TYPE: US gallbladder DATE OF EXAM: 03/19/2025 COMPARISON: Hx CT, US CLINICAL INDICATION: Female, 45 years old with history of RUQ ab pain, N/V; RUQ pain. Pt had recent p rocedure for urinary bladder TECHNIQUE: Grayscale and color Doppler imaging of the right upper quadrant. FINDINGS: EXAM MEASUREMENTS: Liver Length: 10.7 cm Gallbladder Wall: 0.14 cm CBD: 0.47 cm, color Doppler imaging was utilized to isolate the common bile duct for measurement. Right Kidney: 11.5 x 4.9 x 5.0 cm TUB PULLER NOTES: Exam is limited due to great amount of bowel gas Pancreas: Limited, no abnormality seen. Tail was obscured Liver: Appears coarse Gallbladder: Appears anechoic Evidence for sonographic Cruz's sign: No CBD: Portions seen appear wnl Right Kidney: No hydronephrosis or masses seen The visualized portions of the pancreas are unremarkable. The liver appears coarse without surface no dularity or focal lesion. Gallbladder is anechoic without evidence of wall thickening, stones or surr ounding fluid. Negative sonographic Cruz's sign. Visualized common bile duct is within normal limit s. Right kidney demonstrates no solid mass, shadowing calculus or hydronephrosis. IMPRESSION: Limited examination due to overlying bowel gas. No ultrasound evidence for acute process. [facility], , 03/19/2025 7:03 PM
[2025-03-19] MEDS: METOCLOPRAMIDE 5 MG/ML 2 ML VIAL IVP STA (19:45)
[2025-03-19 20:06] LABS: Appearance,Urine Clear (Clear); Bilirubin,Urine Negative (Negative); Blood,Urine Negative (Negative); Color,Urine Colorless; Glucose,Urine (UA) Negative (Negative); Ketones,Urine 2+ (Negative); Leukocyte Esterase,Urine Negative (Negative); Nitrite,Urine Negative (Negative); PH, Urine 6.5 (5.0-8.0); Protein,Urine Negative (Negative); Specific Gravity,Urine 1.009 (1.001-1.035); Urobilinogen,Urine <2.0 mg/dL (<2.0)
[2025-03-19 21:05] VITALS: BP 111/73; PULSE 95; RESP 20
== END 2025-03-19 21:05 | disposition home or self-care (01) ==
LOC: EC 17:18
DX: R11.2 Nausea with vomiting, unspecified (principal); Z91.041 Radiographic dye allergy status; Z88.8 Allergy status to other drugs, medicaments and biological substances
CPT/HCPCS: 36415; 80053; 82150; 83605; 83690; 85025; 81003; 76705; 99284; 96374; 96375; 96361 ×2; J2765; J2405

== ENCOUNTER 2025-04-13 22:22 | Emergency (ER) | payer BC ==
[2025-04-13 22:26] VITALS: BP 103/72; PULSE 89; RESP 18; TEMP 98.4
--- NOTE | 2025-04-14 00:23 | XR ---
EXAMINATION TYPE: XR KUB DATE OF EXAM: 04/14/2025 COMPARISON: CT abdomen and pelvis 04/05/2025, the abdominal radiograph 04/11/2025, KUB radiograph 04/11/20 HISTORY: Abdominal pain TECHNIQUE: Single upright KUB image of the abdomen is obtained FINDINGS: Small bowel demonstrates no evidence for dilatation or air fluid levels. Gas and fecal material is seen in non-distended colon. No convincing evidence for pneumoperitoneum. No unusual calcifications. The lung bases are clear. No acute osseous abnormality. Bilateral SI joint transverse oriented fixation screws. Sacral stimulat or lead identified. IMPRESSION: Overall nonobstructive bowel gas pattern. [facility], , 04/14/2025 12:21 AM
[2025-04-14 00:58] LABS: Basophils # (A) 0.04 10*3/uL (0.00-0.10); Basophils % (A) 0.4 %; Eosinophils # (A) 0.07 10*3/uL (0.04-0.35); Eosinophils % (A) 0.8 %; HCT 44.4 % (37.2-46.3); HGB 15.4 g/dL (12.0-15.0); Lymphocytes # (A) 4.01 10*3/uL (0.90-5.00); Lymphocytes % (A) 43.2 %; MCH 30.4 pg (27.0-32.0); MCHC 34.7 g/dL (32.0-37.0); MCV 87.6 fL (80.0-97.0); Mean Platelet Volume 10.6 fL (9.5-12.2); Monocytes # (A) 0.82 10*3/uL (0.20-1.00); Monocytes % (A) 8.8 %; Neutrophils # (A) 4.33 10*3/uL (1.80-7.70); Neutrophils % (A) 46.6 %; Platelet Count 342 10*3/uL (140-440); RBC 5.07 10*6/uL (4.10-5.20); RDW 13.2 % (11.5-14.5); WBC 9.29 10*3/uL (4.50-10.00)
--- NOTE | 2025-04-14 01:04 | ED ---
Abdominal Pain HPI - General Chief Complaint: Abdominal Pain Stated Complaint: Abd pain Time Seen by Provider: 04/13/25 22:40 Source: patient, RN notes reviewed Mode of arrival: wheelchair Limitations: no limitations - History of Present Illness Initial Comments: 45 year old female presents emergency room with complaints of right sided mid abdominal pain that has been persistent over the past 12 days the past 2 days the pain has worsened. States the pain feels like a stabbing sensation located on the side of her abdomen that is nonradiating. States that she is also been experiencing intermittent constipation, diarrhea, nausea, vomiting. She denies dysuria, hematuria, creased urinary frequency or urgency, hematochezia, melena, hematemesis. denies pain in her chest or difficulty in breathing. Patient is scheduled for appointment with GI specialist in upcoming weeks. - Related Data Home Medications Medication Instructions Recorded Confirmed HYDROcodone/APAP 7.5-325MG [[place] 1 tab PO TID PRN 08/24/18 08/17/23 7.5-325] Albuterol Sulfate [Ventolin HFA] 2 puff INHALATION RT-Q4H PRN 05/31/20 08/17/23 Atorvastatin [Lipitor] 40 mg PO HS 05/31/20 08/17/23 Escitalopram [Lexapro] 20 mg PO DAILY 05/31/20 08/17/23 Pregabalin [Lyrica] 200 mg PO BID 05/31/20 08/17/23 Topiramate [Topamax] 50 mg PO BID 05/31/20 08/17/23 Aspirin 81 mg PO DAILY 09/03/20 08/17/23 Cholecalciferol (Vitamin D3) 125 mcg PO DAILY 04/11/21 08/17/23 [Vitamin D3 (5000 Iu)] Docusate [Colace] 100 mg PO DAILY 04/11/21 08/17/23 Meclizine [Antivert] 25 mg PO BID 04/11/21 08/17/23 Montelukast [Singulair] 10 mg PO DAILY 04/11/21 08/17/23 Butalb/APAP/Caff 50-325-40Mg 1 tab PO BID PRN 08/17/23 08/17/23 [Fioricet 50-325-40] Famotidine [Pepcid] 20 mg PO BID 08/17/23 08/17/23 Melatonin 5 mg PO HS PRN 08/17/23 08/17/23 OXcarbazepine [Trileptal] 150 mg PO BID 08/17/23 08/17/23 busPIRone HCL [Buspar] 7.5 mg PO BID 08/17/23 08/17/23 Previous Rx's Medication Instructions Recorded predniSONE [Deltasone] 20 mg PO BID #10 tab 08/17/23 Metoclopramide [Reglan] 10 mg PO TID PRN #15 tab 03/19/25 Allergies Allergy/AdvReac Type Severity Reaction Status Date / Time celecoxib [From Celebrex] Allergy Rash/Hives Verified 04/13/25 22:24 on Torso [id number] Allergy Anaphylaxis Verified 04/13/25 22:24 [From Emgality Pen] Iodinated Contrast Media Allergy Anaphylaxis Verified 04/13/25 22:24 Review of Systems ROS Statement: Those systems with pertinent positive or pertinent negative responses have been documented in the HPI. ROS Other: All systems not noted in ROS Statement are negative. 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 History of eating disorder. GERD resolved at this time. Exercise induced asthma. Hx. separation of pelvis, has difficulty getting to standing position from sitting/lying. Rectal bleeding History of Any Multi-Drug Resistant Organisms: None Reported Past Surgical History: Adenoidectomy, Bladder Surgery, Hysterectomy, Orthopedic Surgery, Tonsillectomy Additional Past Surgical History / Comment(s): Laparoscopy, EP Study, Endoscopy, D&C, rectocele and cystocele repair, bladder mesh, urethral sling, carpal tunnel surgery bilateral wrists, 2 ganglion cyts right hand middle digit removed. cervical fusion Past Anesthesia/Blood Transfusion Reactions: Previous Problems w/ Anesthesia Additional Past Anesthesia/Blood Transfusion Reaction / Comment(s): Woke up during endoscopy procedure one time. Past Psychological History: Anxiety, Depression Smoking Status: Never smoker Past Alcohol Use History: Occasional Past Drug Use History: None Reported - Past Family History Mother Family Medical History: Hypertension Father Family Medical History: CVA/TIA, Myocardial Infarction ([place]) General Exam Limitations: no limitations General appearance: alert, in no apparent distress Neck exam: Present: normal inspection. Absent: tenderness, meningismus, lymphadenopathy Respiratory exam: Present: normal lung sounds bilaterally. Absent: respiratory distress, wheezes, rales, rhonchi, stridor Cardiovascular Exam: Present: regular rate, normal rhythm, normal heart sounds. Absent: systolic murmur, diastolic murmur, rubs, gallop, clicks GI/Abdominal exam: Present: soft, tenderness (right mid-abdomen), normal bowel sounds. Absent: distended, guarding, rebound, rigid Expanded GI/Abdominal exam: Absent: psoas sign, Cruz's sign, tenderness at McBurney's Point Extremities exam: Present: normal inspection, full ROM, normal capillary refill. Absent: tenderness, pedal edema, joint swelling, calf tenderness Back exam: Present: normal inspection. Absent: CVA tenderness (R), CVA tenderness (L) Course Vital Signs 04/13/25 22:24 Temperature 98.4 F Pulse Rate 89 Respiratory 18 Rate Blood Pressure 103/72 O2 Sat by Pulse 98 Oximetry Medical Decision Making - Medical Decision Making Was pt. sent in by a medical professional or institution (, PA, CRIMINOLOGY TEACHER, urgent care, hospital, or senior care...) When possible be specific @ -No Did you speak to anyone other than the patient for history (EMS, parent, family, police, friend...)? What history was obtained from this source @ -No Did you review nursing and triage notes (agree or disagree)? Why? @ -I reviewed and agree with nursing and triage notes Were old charts reviewed (outside hosp., previous admission, EMS record, old EKG, old radiological studies, urgent care reports/EKG's, senior care records)? Report findings @ -No old charts were reviewed Differential Diagnosis (chest pain, altered mental status, abdominal pain women, abdominal pain men, vaginal bleeding, weakness, fever, dyspnea, syncope, headache, dizziness, GI bleed, back pain, seizure, CVA, palpatations, mental health, musculoskeletal)? @ -Differential Abdominal Pain Women: Appendicitis, Cholecystitis, diverticulosis, ischemic bowel, pancreatitis, hepatitis, UTI, gastroenteritis, AAA, incarcerated hernia, bowel obstruction, constipation, inflammatory bowel, hepatitis, peptic ulcer disease, splenic infarction, perforated viscus, vulvitis, ovarian torsion, PID, kidney stone, placenta abruption, this is not meant to be an all-inclusive list EKG interpreted by me (3pts min.). @ -None X-rays interpreted by me (1pt min.). @ -None done CT interpreted by me (1pt min.). @ -None done U/S interpreted by me (1pt. min.). @ -None done What testing was considered but not performed or refused? (CT, X-rays, U/S, labs)? Why? @ -None What meds were considered but not given or refused? Why? @ -None Did you discuss the management of the patient with other professionals (professionals i.e. Dr., PA, CRIMINOLOGY TEACHER, lab, RT, psych nurse, social media marketer, ambulance paramedic, teacher, president and chief executive officer, case aide)? Give summary @ -No Was smoking cessation discussed for >3mins.? @ -No Was critical care preformed (if so, how long)? @ -No Were there social determinants of health that impacted care today? How? (Homelessness, low income, unemployed, alcoholism, drug addiction, transportation, low edu. Level, literacy, decrease access to med. care, [facility] [facility], re hab)? @ -No Was there de-escalation of care discussed even if they declined (Discuss DNR or withdrawal of care, Hospice)? DNR status @ -No What co-morbidities impacted this encounter? (DM, HTN, Smoking, COPD, CAD, Cancer, CVA, ARF, Chemo, Hep., AIDS, mental health diagnosis, sleep apnea, morbid obesity)? @ -None Was patient admitted / discharged? Hospital course, mention meds given and route, prescriptions, significant lab abnormalities, going to OR and other pertinent info. @ -Discharge. Presents with fever presenting with right-sided abdominal pain. Overall patient is well-appearing, pain is mildly reproducible to the right mid abdomen, negative Cruz sign. Patient provided with pain control and fluids with concerns of clinical dehydration. lab testing is grossly unremarkable. Extremity of the abdomen no signs of bowel obstruction. Reviewed patient's CAT scan from the of systems unremarkable. As patient has had multiple imaging recently with unremarkable labs and persistent pain imaging is deferred recommend patient follows up as scheduled with GI specialist. Case discussed with Dr. dykes Undiagnosed new problem with uncertain prognosis? @ -No Drug Therapy requiring intensive monitoring for toxicity (Heparin, Nitro, Insulin, Cardizem)? @ -No Were any procedures done? @ -No Diagnosis/symptom? @ -right sided unspecified abdominal pain Acute, or Chronic, or Acute on Chronic? @ -acute Uncomplicated (without systemic symptoms) or Complicated (systemic symptoms)? @ -uncomplicated Side effects of treatment? @ -No Exacerbation, Progression, or Severe Exacerbation? @ -No Poses a threat to life or bodily function? How? (Chest pain, [place], [place], pneumonia, PE, COPD, DKA, ARF, appy, cholecystitis, CVA, Diverticulitis, Homicidal, Suicidal, threat to staff... and all critical care pts) @ -No - Lab Data Result diagrams: 04/14/25 00:25 04/14/25 00:25 Lab Results 04/14/25 04/14/25 Range/Units 00:25 00:25 WBC 9.29 (4.50-10.00) 10*3/uL RBC 5.07 (4.10-5.20) 10*6/uL Hgb 15.4 H (12.0-15.0) g/dL Hct 44.4 (37.2-46.3) % MCV 87.6 (80.0-97.0) fL MCH 30.4 (27.0-32.0) pg MCHC 34.7 (32.0-37.0) g/dL Plt Count 342 (140-440) 10*3/uL MPV 10.6 (9.5-12.2) fL Immature Gran % (Auto) 0.2 % Neutrophils % 46.6 % Lymphocytes % 43.2 % Monocytes % 8.8 % Eosinophils % 0.8 % Basophils % 0.4 % Immature Gran # 0.02 (0.00-0.04) 10*3/uL Neutrophils # 4.33 (1.80-7.70) 10*3/uL Lymphocytes # 4.01 (0.90-5.00) 10*3/uL Monocytes # 0.82 (0.20-1.00) 10*3/uL Eosinophils # 0.07 (0.04-0.35) 10*3/uL Basophils # 0.04 (0.00-0.10) 10*3/uL Sodium 139 (137-145) mmol/L Potassium 4.0 (3.5-5.1) mmol/L Chloride 103 (98-107) mmol/L Carbon Dioxide 24 (22-30) mmol/L Anion Gap 12 mmol/L BUN 10 (7-17) mg/dL Creatinine 0.59 (0.52-1.04) mg/dL Est GFR (CKD-EPI)AfAm >90 (>60 ml/min/1.73 sqM) Est GFR (CKD-EPI)NonAf >90 (>60 ml/min/1.73 sqM) Glucose 90 (74-99) mg/dL Calcium 10.0 (8.4-10.2) mg/dL Total Bilirubin 0.6 (0.2-1.3) mg/dL AST 26 (14-36) U/L ALT 19 (4-34) U/L Alkaline Phosphatase 75 (38-126) U/L Total Protein 7.3 (6.3-8.2) g/dL Albumin 4.6 (3.5-5.0) g/dL Amylase 69 (30-110) U/L Lipase 126 (23-300) U/L Disposition Clinical Impression: Abdominal pain Disposition: HOME SELF-CARE Condition: Stable Instructions (If sedation given, give patient instructions): Abdominal Pain (ED) Additional Instructions: Please return to the Emergency Department if symptoms worsen or any other concerns. Is patient prescribed a controlled substance at d/c from ED?: No Referrals: Chance Valdez DO [Primary Care Provider] - 1-2 days Time of Disposition: 02:31
[2025-04-14] MEDS: SODIUM CHLORIDE 0.9% 1,000 ML IV SCH (01:11)
[2025-04-14] MEDS: MORPHINE SULFATE 4 MG/ML SYRINGE IVP STA (01:12)
[2025-04-14 01:32] LABS: ALT 19 U/L (4-34); AST 26 U/L (14-36); African American GFR (CKD) >90 (>60 ml/min/1.73 sqM); Albumin 4.6 g/dL (3.5-5.0); Alkaline Phosphatase 75 U/L (38-126); Amylase 69 U/L (30-110); Anion Gap 12 mmol/L; Blood Urea Nitrogen 10 mg/dL (7-17); Carbon Dioxide 24 mmol/L (22-30); Chloride 103 mmol/L (98-107); Glucose 90 mg/dL (74-99); Lipase 126 U/L (23-300); Non-African American GFR(CKD) >90 (>60 ml/min/1.73 sqM); Sodium 139 mmol/L (137-145); Total Bilirubin 0.6 mg/dL (0.2-1.3); Total Protein 7.3 g/dL (6.3-8.2)
== END 2025-04-14 02:40 | disposition home or self-care (01) ==
LOC: EC 22:22
DX: R10.9 Unspecified abdominal pain (principal); Z91.041 Radiographic dye allergy status; Z88.8 Allergy status to other drugs, medicaments and biological substances
CPT/HCPCS: 36415; 80053; 82150; 83690; 85025; 74018; 99284; 96374; 96361 ×2; J2270